=== PATIENT | female | born 1950 | race Caucasian/White ===

== ENCOUNTER 2017-12-24 09:30 | Outpatient (RCR) | payer MEDICARE, OTHER, SELFPAY ==
--- NOTE | 2017-11-27 14:51 | HP.PTEVAL ---
Patient's Visit Information MEAGAN GONZALEZ is a 67 year old F referred to Physical Therapy by Trisha Stacy with a diagnosis of LBP with radiculopathy,great bursitis trochanteric bursitis. Date of Evaluation: 11/27/17 Physical Therapist: Humberto Donovan PT, - Visit Plan Frequency: 2x /Week Duration: 4 Weeks Plan: POSTURAL EX'S,GRADE PROGRESSION DLS,MODLITIES LATERAL HIP BURSITUS,FLEXABLITY - Subjective Subjective: This 67 y/o female presenst to physical therapy with lumbar pain and lateral hip since last Jan. Patient has h/o lumbar HNP 2 years ago. Patient located lateral hip/SI,greater trochanter,below knee lateral calf described ache.. Patient symptoms laying on left side,walking.standing ,weakness in legs,sitting. But for extended standing to sit symptoms better. Symptoms better with rest. Patient has treatment lumbar decompression and manipulation by chiropractor. Patient x-rays done ather office.Patient has been doing some core exercies. Cough/sneezing/straining -. Bowel/bladder good.Pain affects sleeping .Pain affects quality of life and ADL'S/housework tasks. Dr recommmended predisone. SOCAIL: . VOCATION: Chiropractor - Pain Left Buttocks Pain Intensity (Out of 10): 5 Pain Intensity Range: 10 Left Hip Pain Intensity (Out of 10): 5 Pain Intensity Range: 10 Comment: 10/10 sleeping - Objective POSTURE: mild foward posture. SYMMTRIES: align. GAIT: ambulates with mild foward anatalgic gait. PALAPTION: tender left lateral tronhanter. NEURO: denies parathesia/tingling,reflexes 2/3 L3-4,L4-5/L5-S1. MMT: quads/hams 4/5,hip flexion/abd left 4-/5 pain,right 4/5. FLEXABLITY: hams min loss,priformis mod right. LUMBAR ROM: flexion min loss flexion,extension mod loss,side glides min loss - Special Tests L/S Slump test left side: Negative L/S Slump test right side: Negative L/S Left Straight Leg Raise: Negative L/S Right Straight Leg Raise: Negative Lumbar Standing: Flexion - Mechanical Response: No effect Lumbar Standing: Flexion - Symptoms During Testing: No effect Lumbar Standing: Flexion - Symptoms After Testing: No effect Lumbar Standing: Extension - Mechanical Response: No effect Lumbar Standing: Extension - Symptoms During Testing: Increases Lumbar Standing: Extension - Symptoms After Testing: No worse Lumbar Standing: Right Side Glides - Mechanical Response: No effect Lumbar Standing: Right Side [place] - Symptoms During Testing: No effect Lumbar Standing: Right Side [place] - Symptoms After Testing: No effect Lumbar Standing: Left Side [place] - Mechanical Response: No effect Lumbar Standing: Left Side [place] - Symptoms During Testing: Increases Lumbar Standing: Left Side [place] - Symptoms After Testing: Worse Lumbar Lying: Flexion - Mechanical Response: No effect Lumbar Lying: Flexion - Symptoms During Testing: Decreases Lumbar Lying: Flexion - Symptoms After Testing: No better Lumbar Lying: Extension - Mechanical Response: No effect Lumbar Lying: Extension - Symptoms During Testing: Increases Lumbar Lying: Extension - Symptoms After Testing: No worse - Goals Goal 1:: Patient to be Independant with HEP Goal Time Frame: 4-6 Weeks Goal 2:: Patient to be independant with posture for ADL'S Goal Time Frame: 4-6 Weeks Goal 3:: Decrease lumbar pain and radicular symptoms along with greater tronchanter symptoms by 50% or greater to improve function and ADL'S Goal Time Frame: 4-6 Weeks Goal 4:: Patient be able to improve lumbar to WFL for function of recovery Goal Time Frame: 4-6 Weeks Goal 5:: Patient be able to sleep on left side with min c/o pain Goal Time Frame: 4-6 Weeks Goal 6:: Patient be able to perfporm ADLS' and housework tasks with min limitations Goal Time Frame: 4-6 Weeks - Rehabilitation Potential Physical Therapy Diagnosis: This patient displays with possible deraangemnt below knee vs lateral stenosis along with left greater tronchanteric bursitis with pain with extension ,tender ,lateral hip . Patient also has h/o HNP lumbar spine, Thus patient to benifit from skilled PT. Rehabilitation Potential: Good - Anticipated Interventions Patient/Client Instruction: Educate patient on: Condition, Plan of Care For the Purpose of:: To decrease pain, To increase ROM, To improve muscle performance and motor function, To improve ability to perform ADL's, To improve ability of physical actions for home/community/work/leisure, To improve health of tissue, To decrease soft tissue restriction, To increase flexibility/ROM, To reduce risk of recurrence, To improve ability to perform tasks related to life management Therapeutic Exercise to Include: Strength training, Body mechanics, Postural training, Flexibilty training, Active ROM, Dynamic Lumbar Stabilization For the Purpose of:: To decrease pain, To increase ROM, To improve muscle performance and motor function, To improve ability to perform ADL's, To increase tolerance to activity/condition/position, To decrease level of supervision to perform tasks, To improve ability of physical actions for home/community/work/leisure, To improve health of tissue, To decrease soft tissue restriction, To increase flexibility/ROM, To reduce risk of recurrence, To improve ability to perform tasks related to life management TENS: Yes IF ES: Yes Cryotherapy (ice pack, ice massage): Yes Thermo therapy (hot pack): Yes Ultrasound (thermal/non thermal): Yes Comment: HIP/SI For the Purpose of:: To decrease pain, To decrease swelling/inflammation, To increase ROM, To improve nutrient delivery to tissue, To increase oxygenation perfusion, To improve health of tissue, To decrease soft tissue restriction, To improve ability to perform tasks related to life management Thank you for the opportunity to evaluate your patient. For Medicare and Medicare HMO plans, please review the plan of care and approve it. It will need to be FAXED BACK to us at [phone] for Medicare purposes. Please let me know if there are questions or concerns regarding this plan of care. Physician Signature: Date:
--- NOTE | 2018-02-12 12:23 | HP.PTDCSUM ---
HP - PT D/C Summary It has been my pleasure to treat MEAGAN GONZALEZ under orders from Trisha Stacy, for the diagnosis of LBP with radiculopathy,great bursitis trochanteric bursitis for a total of 9 visit(s). Discharge Date: 12/24/17 Please see the following information for a summary of their discharge status. - Subjective Subjective: Doing okay ,difficulty laying on left side - Pain Left Buttocks Pain Intensity (Out of 10): 0 Left Hip Pain Intensity (Out of 10): 1 Right Knee Pain Intensity (Out of 10): 0 LB Pain Intensity (Out of 10): 1 - Overall Improvement % Improvement: 55 - Objective Objective/Function: POSTURE: mild foward posture. NEURO: denies parathesia/tingling,reflexes intact. GAIT: ambulates with normal cadance,reciprocal pattern. MMT: quads/hams hip flexion 4/5 hip abd 4-/5,ankle 4/5. PALPATION: tender greater tronchanter mild left. LUMBAR ROM: flexion min lolss,extension mod loss ERP,side glides min loss - Goals Goal 1:: Patient to be Independant with HEP Goal Progress: Goal Met Goal 2:: Patient to be independant with posture for ADL'S Goal Progress: Goal Met Goal 3:: Decrease lumbar pain and radicular symptoms along with greater tronchanter symptoms by 50% or greater to improve function and ADL'S Goal Progress: Goal Met Goal 4:: Patient be able to improve lumbar to WFL for function of recovery Goal Progress: Progressing Goal 5:: Patient be able to sleep on left side with min c/o pain Goal Progress: Progressing Goal 6:: Patient be able to perfporm ADLS' and housework tasks with min limitations Goal Progress: Goal Met - Plan Plan: D/C TO HEP - D/C Information Discharge Comments: HEP If there are questions or concerns regarding this patient's physical therapy, please feel free to call me at [phone]. Thank you for the referral of this patient. Sincerely, Humberto Donovan, PT,
== END 2017-12-24 19:00 | disposition home or self-care (01) ==
LOC: PT 09:30
PROVIDERS: Family Provider Internal Medicine; PCP Internal Medicine; Visit Provider Internal Medicine
DX: M54.16 Radiculopathy, lumbar region (principal); M70.60 Trochanteric bursitis, unspecified hip
CPT/HCPCS: 97035; 97110; 97162

== ENCOUNTER 2018-09-22 00:17 | Inpatient (IN) | payer MEDICARE, OTHER, SELFPAY ==
[2018-09-22] VITALS (40 sets, daily range): BP systolic 92–187; BP diastolic 53–115; PULSE 55–155; RESP 12–24; TEMP 36.4–36.9; O2SAT 95–100; BMI 32.2; BMI 29.2; BMI 29.3
--- NOTE | 2018-09-22 00:20 | EKG12_ITS ---
Test Reason : CP Blood Pressure : / mmHG Vent. Rate : 156 BPM Atrial Rate : 187 BPM P-R Int : 000 ms QRS Dur : 072 ms QT Int : 292 ms P-R-T Axes : 000 -02 152 degrees QTc Int : 470 ms Atrial fibrillation with rapid ventricular response Nonspecific ST and T wave abnormality Abnormal ECG Confirmed by TIMBO DE LEON ([id number]), digital editor VICKY DE PAZ ([id number]) on 09/24/2018 11:05:40 AM Referred By: MARLENA Confirmed By:TIMBO DE LEON
--- NOTE | 2018-09-22 00:21 | CT_ITS ---
STUDY: CTA CHEST REASON FOR EXAM: Female, 68 years old. Chest pain and palpitations. RADIATION DOSAGE (If Supplied By Facility): CTDIvol = ( 10.66 ) mGy, DLP = ( 457.94 ) mGycm TECHNIQUE: The examination was performed with the intravenous administration of 75 ml of Isovue 370. Post-processing of the angiographic images was performed, with multiplanar reformation and 3D reconstruction. Individualized dose optimization techniques were used for this CT. COMPARISON: None. FINDINGS: patient monitor leads are present. Normal enhancement of the main pulmonary artery and right and left pulmonary arteries. Normal enhancement of the bilateral peripheral pulmonary arteries. There is no demonstrated pulmonary embolism. There is atherosclerotic calcification of the aortic arch with tortuosity. Maximum transverse dimension of the ascending thoracic aorta measures 3.1 cm. There is no demonstrated aortic dissection. Normal heart and pericardium. There are calcifications of the coronary arteries. Normal mediastinum. Normal hilar regions. Normal visualized trachea and bronchi. The lungs are well expanded. There is no obvious airspace consolidation. There appears to be subsegmental atelectasis at the right lung base. Normal pleura. Normal chest wall structures. There are degenerative changes of thoracic spine. Normal visualized upper abdomen. CT/CTA Chest W/WO Contrast IMPRESSION: No CTA demonstrated pulmonary embolism or arterial dissection. Electronically Signed: Afua Razo MD at 2:11 EDT , Service support ,
--- NOTE | 2018-09-22 00:23 | ED.VISSUMM ---
- ER Visit Summary Date of Service: 09/22/18 Chief Complaint: Chest pain, palpitations History of Present Illness: The patient is a 68 F presents to the emergency department sudden onset palpitations and chest pain. Patient states she is been having intermittent chest pain for the past week or so. She states she was just recently started on estrogen therapy. She states tonight, she was lying in bed, and began to have the sensation that her heart was racing. She also felt mildly short of breath. She denies any history of coronary vascular disease. She has a remote history of smoking. She denies any recent travel. She has no history of blood clot. She states she felt like her heart was racing just cannot catch her breath. She did not try anything for it. Physical Examination: Vital signs reviewed General: Well-nourished, well-developed Head: Normocephalic, atraumatic Eyes: Pupils equal and reactive, extraocular muscles intact Neck, supple, no lymphadenopathy Heart: irregular tachycardic rhythm rythm Respiratory: No distress, clear bilaterally Abdomen: Soft, nontender, nondistended, no peritoneal signs Back: Nontender Extremities: Nontender, no edema, no cords Skin: Normal color no rash Neuro: Alert and oriented, no focal or lateralizing deficits Test Results: [] Emergency Department Course and Treatment: Patient presents to the emergency department with chest tightness and palpitations. EKG was performed. Demonstrates atrial fibrillation with rapid ventricular response. There was no acute ischemia. IV was established. The patient does have exertional dyspnea. I did want to rule out pulmonary embolus. Patient was given 10 mg of diltiazem and started on diltiazem drip. Her heart rate had improved from the 160s to 140s. She was given another 10 mg and her heart rate in the 1 teens with improvement of symptoms. Screening labs are unremarkable. X-ray shows no focal infiltrate or enlarged cardiac silhouette. Patient underwent CTA. There is no evidence of acute pulmonary embolus. Her heart rate is improved but she is requiring continuous infusion of rate control. She is given a dose of Lovenox. The patient was discussed with the hospitalist and will be admitted at this time for rate control and further work-up of new onset A. fib. Treatment Plan: [] Disposition: Admission Impression: 1. New onset A. fib RVR This note was generated with Dragon dictation software. It may contain incorrect words, spelling, and punctuation that were not noted in review of the chart prior to signing ED Disposition - Plan for ED Patient: Referrals: Trisha Stacy DO [Primary Care Provider] -
--- NOTE | 2018-09-22 00:25 | RAD_ITS ---
STUDY: X-RAY CHEST REASON FOR EXAM: Female, 68 years old. Chest pain and palpitations. TECHNIQUE: Single AP portable view of the chest. COMPARISON: Prior comparison studies are not available for review at this time. FINDINGS: Cardiac monitoring leads are present. The lungs are underexpanded with crowding of bronchovascular markings. There is no demonstrated pleural abnormality. Normal size heart. Normal mediastinum and [place]. Normal visualized pulmonary arteries. There is atherosclerotic calcification of the aortic arch with tortuosity. Normal visualized thoracic spine. Normal visualized ribs, clavicles, and shoulders. There is no demonstrated abnormality of the visualized soft tissue structures of the upper abdomen. RAD/Chest 1 View (Portable) IMPRESSION: No radiographic evidence of acute cardiopulmonary disease. Electronically Signed: Afua Razo MD at 1:12 EDT , Service support ,
[2018-09-22] MEDS: dilTIAZem 25 MG/5 ML Vial 10 MG IV BOLUS ×2 (00:28→01:51)
[2018-09-22] MEDS: 0.9% Normal Saline 1,000 ML 150 ML IV (00:29)
[2018-09-22 00:49] LABS: Absolute Lymphocyte Count 3.05 X10^3/ul (0.83-4.51); Absolute Neutrophil Count 3.5 X10^3/uL (2.0-7.7); Basophil# 0.03 X10^3/uL; Basophil% 0.4 % (0-1); Eosinophil# 0.19 X10^3/uL; Eosinophils% 2.4 % (0-5); Hematocrit 44.3 % (37-47); Hemoglobin 14.6 g/dl (12.0-15.0); Lymphocyte # 3.05 X10^3/ul (4.0); Lymphocyte % 39.1 % (19-41); Mean Corpuscular Hgb 29.7 pg (27.0-32.0); Mean Platelet Vol. 9.5 fl (6.2-12.0); Monocyte% 12.8 % (0-10); Neutrophil # 3.51 X10^3/uL (2.7-7.7); Platelet Count 301 K/mm3 (150-450); RBC Distribution Width CV 13.5 % (11.6-14.6); RBC Distribution Width SD 43.9 fl (35.1-43.9); Red Blood Count 4.92 M/mm3 (4.2-5.4); White Blood Count 7.8 K/mm3 (4.4-11.0)
[2018-09-22 00:51] LABS: POSITIVE COUNT NO; POSITIVE DIFFERENTIAL NO; POSITIVE MORPHOLOGY NO
[2018-09-22 00:52] LABS: Prothrombin Time (Protime)PT. 12.6 SECONDS (11.7-14.9)
[2018-09-22 00:53] LABS: Partial Thromboplast Time 25.8 Seconds (24.1-36.2)
[2018-09-22 01:02] LABS: Anion Gap 6 (5-15); BUN 24 mg/dL (7-18); BUN/Creat Ratio 28.8 RATIO (10-20); Chloride 107 mmol/L (98-107); Creatinine, Serum 0.83 mg/dL (0.55-1.02); EST Glomerular Filtration Rate 73 mL/min (>60); Est Glom Filt Rate - Afr Amer 88 mL/min (>60); Estimated Creatinine Clearance 57.57 ml/min; Glucose 131 mg/dL (74-106); Potassium 3.9 mmol/L (3.5-5.1); Sodium Level 140 mmol/L (136-145)
[2018-09-22 02:09] LABS: Thyroid Stim Hormone (TSH) 1.68 uIU/mL (0.358-3.74)
[2018-09-22] MEDS: Mag Hydrox/Al Hydrox/Simeth 30 ML UDC PO (02:11)
[2018-09-22] MEDS: Enoxaparin 80 MG/0.8 ML Syringe SC (02:26)
--- NOTE | 2018-09-22 02:29 | ED.RN ---
PER DR BRAGG TITRATE CARDIZEM UP TO 15MG/HR
--- NOTE | 2018-09-22 02:36 | PCM.HP.STD ---
Problem List (1) Atrial fibrillation with RVR Status: Acute (2) HLD (hyperlipidemia) Status: Chronic Qualifiers: Hyperlipidemia type: unspecified Qualified Code(s): E78.5 - Hyperlipidemia, unspecified (3) Osteoarthritis Status: Chronic Qualifiers: Osteoarthritis location: unspecified site Osteoarthritis type: unspecified Qualified Code(s): M19.90 - Unspecified osteoarthritis, unspecified site (4) Obesity (BMI 30.0-34.9) Status: Chronic History of Present Illness Date of Admission: 09/22/18 Chief Complaint: Chest pain, palpitations The patient is a 68 y/o F w/ PMHx: HLD, OA, Obesity, History of intermittent midsternal chest pain, cramping sensation with associated dyspnea with evaluation per Dr. Ahuja prior with unremarkable stress testing, ECHO as well as cardiac catheterization remotely who now re-presents to the [facility] ED on 09/22/18 with history of 2 to 3-day history of again intermittent midsternal chest discomfort described as a cramping however this time she had sudden onset palpitations with severely notable sensation of racing heart awakening her from sleep early this morning with associated worsened dyspnea above baseline, rated 8/10 initially, now improved upon evaluation to 1/10. and do state that patient is a frequent snorer, worse as she is aged, unclear if apneic periods she has denied aggressive caffeine intake noting only 2 cups of coffee daily. Work-up in the ED included T 97.9, heart rate 153, BP initially 187/93, respiratory rate 18, 98% on 2 L nasal cannula, CBC unremarkable, coags unremarkable, BMP unremarkable aside glucose 131, trop < 0.015, BNP 49, TSH 1.68, EKG w/ atrial fibrillation with RVR, chest x-ray with no acute cardia pulmonary findings, CTPA with no acute findings. In the ED patient administered Mylanta, aspirin 324 mg p.o. x1, total of Cardizem IV bolus 10 mg x 2, Lovenox 80 mg subcu x1, multi-ingredient GI drug x1. Patient with ongoing atrial for ablation with RVR therefore transition following Cardizem bolus to Cardizem drip. Past Medical History Past Medical History (Chronic Problems): Chronic Problems HLD (hyperlipidemia) (Chronic) Osteoarthritis (Chronic) Obesity (BMI 30.0-34.9) (Chronic) Allergies No Known Allergies Allergy (Verified 10/07/15 05:08) Home Medications: Ambulatory Orders Medication Instructions Recorded NK 09/22/18 Surgical History: - - Bilateral bunionectomies. Psychiatric History: No pertinent psych hx [employer] History: No pertinent [employer] history Lives: Spouse/ Significant Other Smoking Status: Former smoker - Patient smoked transiently in college but none since. Tobacco Use: Non-smoker Alcohol: Occasional Drugs: None - *Family History Maternal History Items: - - Patient notes a maternal family history of atrial fibrillation. Paternal History Items: - - Patient notes a paternal family history of heart disease, ID. Review of Systems Constitutional: Reports: Malaise, Weakness, Fatigue. Denies: Chills, Fever, Weight Change HEENT: Denies: Head Aches, Sinus Congestion, Sinus Drainage Cardiovascular: Reports: Chest Pain, Chest Pressure, Chest Tightness, Palpitations. Denies: Heaviness, Light Headedness, Orthopnea, Syncope Respiratory: Reports: Shortness of Breath. Denies: Cough, Shortness of breath at rest, Sputum production Gastrointestinal: Denies: Abdominal Pain, Nausea, Vomiting Genitourinary: Denies: Dysuria Musculoskeletal: Denies: Joint Pain, Joint Tenderness Skin: Denies: Rash, Wounds Neurological: Denies: Numbness, Tingling, Focal weakness Psychiatric: Denies: Anxiety, Depression, Homicidal Ideations, Suicidal Ideations Hematologic/ Lymphatic: Denies: Easy Bruising, Easy Bleeding VTE Information - Inpt Only VTE Present on Admission: No VTE Mechan Device Prophylaxis: SCD's VTE Pharm Prophylaxis ordered?: Yes Patient Problems: Active and Suspected Problems Atrial fibrillation with RVR (Acute) Subjective: Seated upright in the ED bed, notes feeling improved since initial presentation, chest discomfort is markedly lessened, 1 out of 10 currently. States she is still feeling palpitations and a racing heart. Objective: Physical Examination: General: awake, alert, oriented x 3 and cooperative, seated upright in the ED bed in no apparent distress, notes feeling improved, chest discomfort 1 out of 10 currently, still ongoing racing heart. Skin: normal color, turgor, no icterus, cyanosis. HEENT: AT/NC, EOMI, PERRLA, mildly dry MM, no carotid bruits or JVD noted. Lungs: CTA bilaterally, moderate effort, mild decrease BL bases, no rales, ronchi or wheezing. Heart: Irregular irregular; no gallop, rub audible. Abdomen: soft, obese, NTTP, ND, normal BS, no HSM. Extremities: no cyanosis, clubbing, or edema. Neurological: patient awake, alert, oriented x 3; cognitive function intact; pupils equally reactive to light and accomodation; cranial nerves II-XII grossly normal, moving all 4 extremities, no focal deficits, strength severely global decrease secondary to acute presentation. Psychiatric: affect appears fatigued, no acute evidence of depressive or anxiety feelings. - Physical Exam Vital Signs Temp Pulse Resp BP Pulse Ox 98 F 129 H 16 108/63 99 09/22/18 02:05 09/22/18 02:28 09/22/18 02:28 09/22/18 02:28 09/22/18 02:28 Oxygen Flow Rate (L/min) 2 Oxygen Delivery Method Room Air Weight: 187 lb 9.814 oz Body Mass Index (BMI) 32.2 Laboratory Tests Past 24 Hrs 09/22/18 09/22/18 09/22/18 00:25 00:25 00:25 WBC 7.8 RBC 4.92 Hgb 14.6 Hct 44.3 MCV 90.0 MCH 29.7 MCHC 33.0 RDW 13.5 RDW Differential 43.9 Plt Count 301 MPV 9.5 Immature Gran % (Auto) 0.300 Neut % (Auto) 45.0 L Lymph % (Auto) 39.1 [place] % (Auto) 12.8 H Eos % (Auto) 2.4 Baso % (Auto) 0.4 Absolute Neuts (auto) 3.5 Absolute Lymphs (auto) 3.05 Total Counted Not Reportable PT 12.6 INR 1.0 APTT 25.8 Sodium 140 Potassium 3.9 Chloride 107 Carbon Dioxide 27.0 Anion Gap 6 BUN 24 H Creatinine 0.83 Estim Creat Clear Calc 57.57 Est GFR (MDRD) Af Amer 88 Est GFR (MDRD) Non-Af 73 BUN/Creatinine Ratio 28.8 H Glucose 131 H Calcium 9.0 Troponin I < 0.015 B-Natriuretic Peptide TSH 09/22/18 09/22/18 00:25 00:25 WBC RBC Hgb Hct MCV MCH MCHC RDW RDW Differential Plt Count MPV Immature Gran % (Auto) Neut % (Auto) Lymph % (Auto) [place] % (Auto) Eos % (Auto) Baso % (Auto) Absolute Neuts (auto) Absolute Lymphs (auto) Total Counted PT INR APTT Sodium Potassium Chloride Carbon Dioxide Anion Gap BUN Creatinine Estim Creat Clear Calc Est GFR (MDRD) Af Amer Est GFR (MDRD) Non-Af BUN/Creatinine Ratio Glucose Calcium Troponin I B-Natriuretic Peptide 49.0 TSH 1.68 Assessment/Plan All Active Problems Atrial fibrillation with RVR (Acute) The patient is a 68 y/o F w/ PMHx: HLD, OA, Obesity who now presents to the [facility] ED on 09/22/18 with history of 2 to 3-day history of again intermittent midsternal chest discomfort described as a cramping however this time she had sudden onset palpitations with severely notable sensation of racing heart awakening her from sleep early this morning with associated worsened dyspnea above baseline, rated 8/10 initially, now improved upon evaluation to 1/10. (1) New onset, Paroxsymal atrial fibrillation with Chest Pain: EKG in ED w/ atrial fibrillation w/ RVR. Patient administered Cardizem bolus x2 and transition to Cardizem drip in ED. Will admit to PCU, maintain on telemetry, obtain cardiac enzyme serial set, obtain magnesium level, obtain ECHO, obtain TSH level. Although chads scoring not elevated for this patient given current presentation and notable symptoms may require future cardioversion therefore initiate anticoagulation pending cardiology evaluation. Will continue on cardizem drip with plan for oral transition after 24 hours if appropriate. Cardiology consulted, pending. Given patient history of intermittent chest pain with prior normal cardiac cath, unremarkable echo but ongoing through the years may have intermittently had atrial fibrillation with RVR as the inciting factor. (2) Hyperlipidemia: Not on regimen, FLP in am. (3) Obesity: Weight loss and lifestyle changes encouraged. (4) Former remote smoker: Notes tobacco use in college, none since, encourage continued cessation. (5) Possible YUMIKO: Notes that she does frequently snore, unclear if occasional apneic periods, will maintain on trending pulse ox given acute presentation with PAF. (6) DVT prophylaxis: SCDs, therapeutic Lovenox. Code Visit Inpatient E&M: 22153 Init Hosp L3
[2018-09-22 02:57] LABS: Magnesium 2.3 mg/dL (1.6-2.6)
[2018-09-22 03:49] LABS: Absolute Lymphocyte Count 1.82 X10^3/ul (0.83-4.51); Absolute Neutrophil Count 4.8 X10^3/uL (2.0-7.7); Basophil# 0.03 X10^3/uL; Basophil% 0.4 % (0-1); Eosinophil# 0.13 X10^3/uL; Eosinophils% 1.7 % (0-5); Hematocrit 40.9 % (37-47); Hemoglobin 13.2 g/dl (12.0-15.0); Lymphocyte # 1.82 X10^3/ul (4.0); Lymphocyte % 24.3 % (19-41); Mean Corp Hgb Conc 32.3 g/gl (32-36); Mean Corpuscular Hgb 29.2 pg (27.0-32.0); Mean Corpuscular Volume 90.5 fL (81-99); Mean Platelet Vol. 9.4 fl (6.2-12.0); Monocyte# 0.74 X10^3/uL; Monocyte% 9.9 % (0-10); Neutrophil # 4.75 X10^3/uL (2.7-7.7); Neutrophil % 63.4 % (47-70); Platelet Count 295 K/mm3 (150-450); RBC Distribution Width CV 13.5 % (11.6-14.6); Red Blood Count 4.52 M/mm3 (4.2-5.4); White Blood Count 7.5 K/mm3 (4.4-11.0)
[2018-09-22 03:52] LABS: POSITIVE COUNT NO; POSITIVE DIFFERENTIAL NO; POSITIVE MORPHOLOGY NO
[2018-09-22 04:07] LABS: Anion Gap 6 (5-15); BUN 22 mg/dL (7-18); BUN/Creat Ratio 28.7 RATIO (10-20); Calcium,Total 8.5 mg/dL (8.5-10.1); Chloride 112 mmol/L (98-107); Cholesterol 190 mg/dL (200); Creatinine, Serum 0.77 mg/dL (0.55-1.02); EST Glomerular Filtration Rate 80 mL/min (>60); Est Glom Filt Rate - Afr Amer 97 mL/min (>60); Glucose 109 mg/dL (74-106); High Density Lipoprotein 56 mg/dL; Potassium 4.4 mmol/L (3.5-5.1); Sodium Level 144 mmol/L (136-145); Triglycerides 64 mg/dL; Very Low Density Lipoprotein 13 mg/dL (5-40)
[2018-09-22 04:44] LABS: Hemoglobin A1c 5.5 % (4.2-6.3)
--- NOTE | 2018-09-22 05:55 | ECHOD_ITS ---
Reason For Study: Afib, Aflutter Procedure This was a 2D Doppler, Color Flow transthoracic echocardiogram. Exam performed in department. Left Ventricle Normal size and thickness. The estimated ejection fraction is 65 %. Normal diastology for age. No regional wall motion abnormalities noted. Right Ventricle Normal size and thickness. Normal systolic function. Atria Normal left atrium. Normal right atrium. Normal atrial septum. Mitral Valve The mitral valve is structurally normal. No prolapse or stenosis seen. Trivial mitral valve insufficiency. Tricuspid Valve Normal tricuspid valve. Trivial tricuspid valve insufficiency. Right ventricular systolic pressure estimated to be 23 mmHg. Aortic Valve Normal aortic valve. Trisinus/trileaflet aortic valve. Pulmonic Valve Normal pulmonic valve. Great Vessels Normal aortic root. Normal arch. Normal inferior vena cava. Inferior vena cava collapse with sniff. Pericardium/Pleural No pericardial effusion. MMode/2D Measurements & Calculations LVIDd: 4.5 cm IVSd: 1.1 cm Ao root diam: 2.8 cm LVIDs: 2.6 cm LVPWd: 0.85 cm RVDd: 3.9 cm FS: 42.6 % LAV(MOD-bp): 50.5 ml LVAd ap4: 22.7 cm2 SV(MOD-sp4): 35.7 ml LAV(MOD-bp) Indexed: 27.0 ml/m2 EDV(MOD-sp4): 57.3 ml LAV(MOD-sp2): 66.9 ml EDV(sp4-el): 59.9 ml LAV(MOD-sp4): 38.4 ml LVAs ap4: 12.8 cm2 ESV(MOD-sp4): 21.6 ml ESV(sp4-el): 22.0 ml EF(MOD-sp4): 62.3 % EF(sp4-el): 63.3 % SV(sp4-el): 37.9 ml LA A4 area: 15.5 cm2 LA dimension(2D): 4.4 cm RA A4 area: 13.2 cm2 Doppler Measurements & Calculations MV E max manolo: 80.4 cm/sec Lat Peak E' Manolo: 12.5 cm/sec Med Peak E' Manolo: 9.8 cm/sec MV A max manolo: 55.1 cm/sec E/E' lat: 6.4 E/E' med: 8.2 MV E/A: 1.5 Ao V2 max: 119.9 cm/sec LV V1 max: 94.4 cm/sec PA V2 max: 74.0 cm/sec Ao max P.8 mmHg LV V1 max P.6 mmHg Ao V2 mean: 87.5 cm/sec Ao mean P.3 mmHg Ao V2 VTI: 28.2 cm TR max manolo: 214.0 cm/sec TR max P.3 mmHg Interpretation Summary The estimated ejection fraction is 65 %. Normal diastology for age. Trivial mitral valve insufficiency. Trivial tricuspid valve insufficiency. Right ventricular systolic pressure estimated to be 23 mmHg. Compared to echo report dated 06/30/2011, no appreciable changes noted. Pt converted from atrial fibrillation to NSR on PCU. Ordering Physician: Amy Fierro Referring Physician: Trisha Stacy Performed By: Maira Potts, JAVI, RVT
[2018-09-22] MEDS: 0.9% Normal Saline 1,000 ML 100 ML IV ×2 (06:30→17:30)
--- NOTE | 2018-09-22 07:05 | STEWCON_ITS ---
Reason For Study: Atrial Fibrillation Stress Results Protocol: Chet Protocol Maximum Predicted HR: 154 bpm Target HR: 131 bpm % Maximum Predicted HR: 84 % DurationHeart Rate Stage (mm:ss) (bpm) BP Comment Baseline 58 104/62No Chest Pain; Diluted Definity 2 ML Given Chet Protocol Stage I 3:00 112 112/60No Chest Pain; Mild to Moderate Dyspnea Chet Protocol Stage II 1:15 129 / No Chest Pain; Severe Dyspnea Recovery 78 124/72 Stress Duration: 4:15 mm:ss Maximum Stress HR: 129 bpm METS: 7 Baseline Echocardiogram Findings The estimated ejection fraction is 65 %. Stress Echo Wall motion Data Resting WM Intermediate WM Stress WM Resting Wall Motion Wall Motion Stress No regional wall motion No regional wall motion abnormalities noted. abnormalities noted. EKG Data The baseline ECG displays normal sinus rhythm. The patient exercised according to the regular Chet protocol for a total duration of 4:15. The maximum heart rate attained was 139 beats per minute. This was 90% of maximum predicted heart rate. The patient exercised into stage 2 of the Chet protocol. During stress, there were no ST or T wave changes noted to suggest ischemia. No clinical angina was noted. Interpretation Summary The estimated ejection fraction is 65 %. Normal, adequate, treadmill echocardiogram. Negative for ischemia by EKG and echocardiographic criteria. No anginal symptoms noted. No arrhythmias noted. Below average exercise capacity for age.Test terminated due to severe shortness of breath which may be an anginal equivalent. Final LVEF is 75%. Decreased sensitivity due to poor echo windows requiring Definity agent. Patient was in sinus rhythm prior to during, and at the end of the procedure. No complications. The study was technically difficult. Contrast injection was performed. Ordering Physician: Abiel Treadwell Referring Physician: Trisha Stacy Performed By: Maira Potts, JAVI, RVT
[2018-09-22] MEDS: Aspirin 81 MG TAB.CHEW PO (07:27)
[2018-09-22] MEDS: dilTIAZem CD 240 MG Capsule PO (07:27)
--- NOTE | 2018-09-22 08:30 | EKG12_ITS ---
Test Reason : MORNING EKG Blood Pressure : / mmHG Vent. Rate : 058 BPM Atrial Rate : 058 BPM P-R Int : 152 ms QRS Dur : 076 ms QT Int : 444 ms P-R-T Axes : 062 002 021 degrees QTc Int : 435 ms Sinus bradycardia Otherwise normal ECG When compared with ECG of 22-SEP-2018 08:37, MANUAL COMPARISON REQUIRED, DATA IS UNCONFIRMED Confirmed by BRAXTON ORTIZ ([id number]), newspaper editor managing VICKY DE PAZ ([id number]) on 09/27/2018 2:23:55 PM Referred By: REGAN Confirmed By:AVERY ORTIZ
[2018-09-22] MEDS: 0.9% NaCl Peripheral Flush Adult/Peds IV (09:20)
[2018-09-22] MEDS: dilTIAZem 25 MG/5 ML Vial 5 MG IV BOLUS (09:21)
--- NOTE | 2018-09-22 09:34 | PCM.CONS.C ---
<Sim Potts - Last Filed: 09/22/18 14:22> Problem List (1) Atrial fibrillation with RVR Status: Acute (2) HLD (hyperlipidemia) Status: Chronic Qualifiers: Hyperlipidemia type: unspecified Qualified Code(s): E78.5 - Hyperlipidemia, unspecified (3) Obesity (BMI 30.0-34.9) Status: Chronic Reason for Consult Date of Consultation: 09/22/18 Reason for Consultation: New onset atrial fibrillation History of Present Illness: The patient is a 68 year old F who presented to the ER on 09/21/2018 after noting palpitations in the evening that was associated with SOB and intermittent chest pain. She has a previous history of intermittent chest pain with evaluation in 2011 which included an echocardiogram and heart catheterization, hyperlipidemia, osteoarthritis, and obesity. She took her blood pressure yesterday and noted her heart rate to be elevated. In the ER her ECG atrial fibrillation with RVR without acute ischemic changes. She underwent a CTA to rule out pulmonary embolism. This was negative for PE. She was given Cardizem bolus and admitted to PCU for further evaluation. Cardiology was consulted for further treatment in regards to atrial fibrillation. Past Medical History Allergies/Adverse Reactions: Allergies No Known Allergies Allergy (Verified 10/07/15 05:08) Home Medications: Ambulatory Orders Medication Instructions Recorded NK 09/22/18 Past Medical History (Chronic Problems): Chronic Problems HLD (hyperlipidemia) (Chronic) Osteoarthritis (Chronic) Obesity (BMI 30.0-34.9) (Chronic) Surgical History: - - Bilateral bunionectomies. 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 Paternal Family History: Family History (Last Updated 09/22/18 @ 09:40 by SONIA Jensen) Mother Atrial fibrillation History Items: - - Patient notes a paternal family history of heart disease, [place]. Lives: Spouse/ Significant Other Smoking Status: Former smoker Tobacco Use: Non-smoker Alcohol: Occasional Drugs: None Review of Systems - Review of Systems Cardiovascular: Denies: Chest Discomfort, Chest Tightness, Chest Heaviness, Shortness of Breath, Peripheral Edema, Dizziness Respiratory: Denies: Cough Neurological: Denies: Dizziness, Weakness Objective: Vital Signs Temp Pulse Resp BP Pulse Ox 98.4 F 110 H 19 H 115/70 98 09/22/18 04:33 09/22/18 07:33 09/22/18 07:33 09/22/18 07:33 09/22/18 07:33 Oxygen Flow Rate (L/min) 2 Oxygen Delivery Method Room Air Weight: 175 lb 14.862 oz Body Mass Index (BMI) 29.2 Intake and Output for Last 24 Hours 09/20/18 09/21/18 09/22/18 23:59 23:59 23:59 Intake Total 561 / 561 Output Total 350 / 350 Balance 211 / 211 General: Healthy Appearing, Awake, Alert, Oriented x 3 HEENT: Atraumatic Oral: Moist Mucosa Neck: No JVD Lungs: Clear to auscultation Cardiovascular: Irregular Rhythm, No Murmurs, No Rubs, No Gallops Abdomen: Soft Extremities: No edema, Normal Capillary Refill Skin: No Rashes Neurological: No Focal Motor or Sensory Deficit Psych/Mental Status: Appropriate, Normal Affect 09/22/18 00:25: WBC 7.8, RBC 4.92, Hgb 14.6, Hct 44.3, MCV 90.0, MCH 29.7, MCHC 33.0, RDW 13.5, RDW Differential 43.9, Plt Count 301, MPV 9.5, Immature Gran % (Auto) 0.300, Neut % (Auto) 45.0 L, Lymph % (Auto) 39.1, Bradley % (Auto) 12.8 H, Eos % (Auto) 2.4, Baso % (Auto) 0.4, Absolute Neuts (auto) 3.5, Total Counted Not Reportable 09/22/18 00:25: Sodium 140, Potassium 3.9, Chloride 107, Carbon Dioxide 27.0, Anion Gap 6, BUN 24 H, Creatinine 0.83, Est GFR (MDRD) Af Amer 88, Est GFR (MDRD) Non-Af 73, BUN/Creatinine Ratio 28.8 H, Glucose 131 H, Calcium 9.0, Troponin I < 0.015 09/22/18 00:25: PT 12.6, INR 1.0, APTT 25.8 09/22/18 00:25: B-Natriuretic Peptide 49.0 09/22/18 00:25: Magnesium 2.3 09/22/18 03:40: WBC 7.5, RBC 4.52, Hgb 13.2, Hct 40.9, MCV 90.5, MCH 29.2, MCHC 32.3, RDW 13.5, RDW Differential 44.0 H, Plt Count 295, MPV 9.4, Immature Gran % (Auto) 0.300, Neut % (Auto) 63.4, Lymph % (Auto) 24.3, Bradley % (Auto) 9.9, Eos % (Auto) 1.7, Baso % (Auto) 0.4, Absolute Neuts (auto) 4.8, Total Counted Not Reportable 09/22/18 03:40: Hemoglobin A1c 5.5 09/22/18 03:40: Sodium 144, Potassium 4.4, Chloride 112 H, Carbon Dioxide 26.0, Anion Gap 6, BUN 22 H, Creatinine 0.77, Est GFR (MDRD) Af Amer 97, Est GFR (MDRD) Non-Af 80, BUN/Creatinine Ratio 28.7 H, Glucose 109 H, Calcium 8.5, Triglycerides 64, Cholesterol 190, LDL Cholesterol 121, VLDL Cholesterol 13, HDL Cholesterol 56 09/22/18 03:40: Troponin I 0.045 09/22/18 06:12: Troponin I 0.043 Rhythm: EKG: ECHO: Interpretation Summary The estimated ejection fraction is 65 %. Normal diastology for age. Trivial mitral valve insufficiency. Trivial tricuspid valve insufficiency. Right ventricular systolic pressure estimated to be 23 mmHg. Compared to echo report dated 06/30/2011, no appreciable changes noted. Pt converted from atrial fibrillation to NSR on PCU. Stress Test: Interpretation Summary The estimated ejection fraction is 65 %. Normal, adequate, treadmill echocardiogram. Negative for ischemia by EKG and echocardiographic criteria. No anginal symptoms noted. No arrhythmias noted. Below average exercise capacity for age.Test terminated due to severe shortness of breath which may be an anginal equivalent. Final LVEF is 75%. Decreased sensitivity due to poor echo windows requiring Definity agent. Patient was in sinus rhythm prior to during, and at the end of the procedure. No complications. The study was technically difficult. Contrast injection was performed. Cardiac Cath: PCI: CT Surgery: Holter monitor: EPS: PPM: CXR: Chest CT Scan: Assessment/Plan 1. Paroxysmal Atrial fibrillation - Patient was on Cardizem PO and converted to Sinus Rhythm. - Echocardiogram Her previous echo in 2011 showed an EF of 55%, structurally normal valves, and normal atrial size. Her Echocardiogram from today showed and an ejection fraction of 65%, normal atrial size, and RVSP of 23 mmHg. -Oral anticoagulation will be considered after heart catheterization given [id number] score is 2 (Age and Female). This may include Coumadin, Xarelto, or Eliquis. -She will continue with oral Cardizem for rate control. 2. Intermittent chest pain Her heart catheterization on 10/29/2011 showed minimal atherosclerotic CAD, normal LV size and contractility, and EF of 65%. Patient's troponin has been negative. He stress echocardiogram from today was negative for ischemia. Despite her normal stress echocardiogram she will undergo a heart catheterization due to ongoing intermittent chest pain. She will be loaded with Plavix 300 mg today. She will be n.p.o. at midnight. Based on her heart catheterization further recommendation will be made in regards to oral anticoagulation due to paroxysmal atrial fibrillation. <Abiel Treadwell - Last Filed: 09/22/18 14:46> Problem List (1) Atrial fibrillation with RVR Status: Acute (2) HLD (hyperlipidemia) Status: Chronic Qualifiers: Hyperlipidemia type: unspecified Qualified Code(s): E78.5 - Hyperlipidemia, unspecified Reason for Consult History of Present Illness: Patient seen and examined and agree with above. Additional history includes that the patient underwent a catheterization with Dr. Ahuja in 2011 which showed minimal non-objective coronary artery disease. She has not had a repeat catheterization since that time. She does have a strong positive family history of coronary disease in her mother who had 5 stents despite having a normal cholesterol profile per the patient. Patient also has a family history of atrial fibrillation and her mother. Over the last several months, the patient has had intermittent episodes of substernal chest pain, dyspnea on exertion and overall fatigue. She still continues to work as a chiropractor, stating that sometimes she gets profound short of breath after walking upstairs. Patient used to smoke for about 5 years in college but quit many years ago. She has never been told she had emphysema, diabetes, denies palpitations during these events over the last several months. Her atrial fibrillation has normalized with medical management. She underwent a 2D echo with Doppler which showed normal LV function and a treadmill echocardiogram with below average exercise performance for age, significant dyspnea on exertion at the peak of exercise which may be an anginal equivalent, but no overt wall motion normalities. [] Past Medical History - *Family History Maternal Family History: Family History (Last Updated 09/22/18 @ 09:40 by SONIA Jensen) Mother Atrial fibrillation Paternal Family History: Family History (Last Updated 09/22/18 @ 09:40 by SONIA Jensen) Mother Atrial fibrillation Review of Systems - Review of Systems General: Denies: Fever, Night Sweats, Fatigue Cardiovascular: Reports: Chest Discomfort with Exertion, Shortness of Breath with Exertion. Denies: Shortness of Breath, Orthopnea, PND, Peripheral Edema, Palpitations, Lightheadedness, Dizziness, Near Syncope, Syncope Respiratory: Denies: Cough, Sputum Production, Hemoptysis Gastrointestinal: Denies: Hematemesis, Hematochezia, Melena Genitourinary: Denies: Dysuria, Hematuria Skin: Denies: Rash Objective: Vital Signs Temp Pulse Resp BP Pulse Ox 97.9 F 64 13 109/59 L 98 09/22/18 10:00 09/22/18 11:34 09/22/18 10:00 09/22/18 10:00 09/22/18 10:00 Oxygen Flow Rate (L/min) 2 Oxygen Delivery Method Room Air Weight: 175 lb 14.862 oz Body Mass Index (BMI) 29.2 Intake and Output for Last 24 Hours 09/20/18 09/21/18 09/22/18 23:59 23:59 23:59 Intake Total 956.7 / 956.7 Output Total 750 / 750 Balance 206.7 / 206.7 09/22/18 00:25: WBC 7.8, RBC 4.92, Hgb 14.6, Hct 44.3, MCV 90.0, MCH 29.7, MCHC 33.0, RDW 13.5, RDW Differential 43.9, Plt Count 301, MPV 9.5, Immature Gran % (Auto) 0.300, Neut % (Auto) 45.0 L, Lymph % (Auto) 39.1, Bradley % (Auto) 12.8 H, Eos % (Auto) 2.4, Baso % (Auto) 0.4, Absolute Neuts (auto) 3.5, Total Counted Not Reportable 09/22/18 00:25: Sodium 140, Potassium 3.9, Chloride 107, Carbon Dioxide 27.0, Anion Gap 6, BUN 24 H, Creatinine 0.83, Est GFR (MDRD) Af Amer 88, Est GFR (MDRD) Non-Af 73, BUN/Creatinine Ratio 28.8 H, Glucose 131 H, Calcium 9.0, Troponin I < 0.015 09/22/18 00:25: PT 12.6, INR 1.0, APTT 25.8 09/22/18 00:25: B-Natriuretic Peptide 49.0 09/22/18 00:25: Magnesium 2.3 09/22/18 03:40: WBC 7.5, RBC 4.52, Hgb 13.2, Hct 40.9, MCV 90.5, MCH 29.2, MCHC 32.3, RDW 13.5, RDW Differential 44.0 H, Plt Count 295, MPV 9.4, Immature Gran % (Auto) 0.300, Neut % (Auto) 63.4, Lymph % (Auto) 24.3, Bradley % (Auto) 9.9, Eos % (Auto) 1.7, Baso % (Auto) 0.4, Absolute Neuts (auto) 4.8, Total Counted Not Reportable 09/22/18 03:40: Hemoglobin A1c 5.5 09/22/18 03:40: Sodium 144, Potassium 4.4, Chloride 112 H, Carbon Dioxide 26.0, Anion Gap 6, BUN 22 H, Creatinine 0.77, Est GFR (MDRD) Af Amer 97, Est GFR (MDRD) Non-Af 80, BUN/Creatinine Ratio 28.7 H, Glucose 109 H, Calcium 8.5, Triglycerides 64, Cholesterol 190, LDL Cholesterol 121, VLDL Cholesterol 13, HDL Cholesterol 56 09/22/18 03:40: Troponin I 0.045 09/22/18 06:12: Troponin I 0.043 Rhythm: EKG: ECHO: Stress Test: Cardiac Cath: PCI: CT Surgery: Holter monitor: EPS: PPM: CXR: Chest CT Scan: Assessment/Plan Interventional cardiology attending addendum: 1. Paroxysmal atrial fibrillation: Patient is spontaneously converted to normal sinus rhythm with the addition of Cardizem drip, and antihypertensive medications. She had minimal troponin release, and underwent a treadmill echocardiogram which showed no overt ischemic areas however she had profound dyspnea on exertion at peak exercise which may be an anginal equivalent. In tandem with that, the patient has had several episodes on a monthly basis of dyspnea on exertion, mild chest pain, and worsening fatigue. She also has a strong positive family history of coronary disease in her mother who has 5 stents in her mid 50s. Given the patient's chads?vascular 2 score she may require long-term anticoagulation therapy. Given her symptoms over the last year and the fact that her last catheterization showed minimal nonobstructive disease over 12 years ago, I recommended that she undergo a left heart catheterization tomorrow morning. She will continue on baby aspirin, be loaded with Plavix 300 mg x 1 now followed by 75 mg p.o. daily. If her catheterization shows no overt disease we will discontinue her Plavix and transition her onto anticoagulation therapy with either Xarelto or Eliquis. Given the paroxysmal nature of her arrhythmias, I would recommend long-term any coagulation therapy. In the meantime she will continue on Cardizem CD 240 mg p.o. daily for rate control. 2. Hyperlipidemia: Depending upon the patient's coronary catheterization we will determine whether she requires aggressive LDL reduction. Her LDL was 121. If she has any evidence of coronary disease and especially if she requires stenting I would recommend aggressive LDL reduction with statin based medications to an LDL less than 70. 3. Thank you very much for the opportunity to participate in the cardiac care of your patient. Consultation time took place between 1 PM and 1:30 PM. This note was generated using a voice recognition system and there may be incorrect words, spelling or punctuation that were not noted when reviewing the office note prior to saving. Code Visit Inpatient E&M: 79146 Init Hosp L2
--- NOTE | 2018-09-22 09:39 | CON.PCM_ITS ---
<Sim Potts - Last Filed: 09/22/18 14:22> Problem List (1) Atrial fibrillation with RVR Status: Acute (2) HLD (hyperlipidemia) Status: Chronic Qualifiers: Hyperlipidemia type: unspecified Qualified Code(s): E78.5 - Hyperlipidemia, unspecified (3) Obesity (BMI 30.0-34.9) Status: Chronic Reason for Consult Date of Consultation: 09/22/18 Reason for Consultation: New onset atrial fibrillation History of Present Illness: The patient is a 68 year old F who presented to the ER on 09/21/2018 after noting palpitations in the evening that was associated with SOB and intermittent chest pain. She has a previous history of intermittent chest pain with evaluation in 2011 which included an echocardiogram and heart catheterization, hyperlipidemia, osteoarthritis, and obesity. She took her blood pressure yesterday and noted her heart rate to be elevated. In the ER her ECG atrial fibrillation with RVR without acute ischemic changes. She underwent a CTA to rule out pulmonary embolism. This was negative for PE. She was given Cardizem bolus and admitted to PCU for further evaluation. Cardiology was consulted for further treatment in regards to atrial fibrillation. Past Medical History Allergies/Adverse Reactions: Allergies No Known Allergies Allergy (Verified 10/07/15 05:08) Home Medications: Ambulatory Orders Medication Instructions Recorded NK 09/22/18 Past Medical History (Chronic Problems): Chronic Problems HLD (hyperlipidemia) (Chronic) Osteoarthritis (Chronic) Obesity (BMI 30.0-34.9) (Chronic) Surgical History: - - Bilateral bunionectomies. Psychiatric History: No pertinent psych hx SWATCH CHECKER History: No pertinent SWATCH CHECKER history - *Family History Maternal Family History: Family History (Last Updated 09/22/18 @ 09:40 by SONIA Jensen) Mother Atrial fibrillation History Items: - - Patient notes a maternal family history of atrial fibrillation. Paternal Family History: Family History (Last Updated 09/22/18 @ 09:40 by SONIA Jensen) Mother Atrial fibrillation History Items: - - Patient notes a paternal family history of heart disease, [place]. Lives: Spouse/ Significant Other Smoking Status: Former smoker Tobacco Use: Non-smoker Alcohol: Occasional Drugs: None Review of Systems - Review of Systems Cardiovascular: Denies: Chest Discomfort, Chest Tightness, Chest Heaviness, Shortness of Breath, Peripheral Edema, Dizziness Respiratory: Denies: Cough Neurological: Denies: Dizziness, Weakness Objective: Vital Signs Temp Pulse Resp BP Pulse Ox 98.4 F 110 H 19 H 115/70 98 09/22/18 04:33 09/22/18 07:33 09/22/18 07:33 09/22/18 07:33 09/22/18 07:33 Oxygen Flow Rate (L/min) 2 Oxygen Delivery Method Room Air Weight: 175 lb 14.862 oz Body Mass Index (BMI) 29.2 Intake and Output for Last 24 Hours 09/20/18 09/21/18 09/22/18 23:59 23:59 23:59 Intake Total 561 / 561 Output Total 350 / 350 Balance 211 / 211 General: Healthy Appearing, Awake, Alert, Oriented x 3 HEENT: Atraumatic Oral: Moist Mucosa Neck: No JVD Lungs: Clear to auscultation Cardiovascular: Irregular Rhythm, No Murmurs, No Rubs, No Gallops Abdomen: Soft Extremities: No edema, Normal Capillary Refill Skin: No Rashes Neurological: No Focal Motor or Sensory Deficit Psych/Mental Status: Appropriate, Normal Affect 09/22/18 00:25: WBC 7.8, RBC 4.92, Hgb 14.6, Hct 44.3, MCV 90.0, MCH 29.7, MCHC 33.0, RDW 13.5, RDW Differential 43.9, Plt Count 301, MPV 9.5, Immature Gran % (Auto) 0.300, Neut % (Auto) 45.0 L, Lymph % (Auto) 39.1, Loíza % (Auto) 12.8 H, Eos % (Auto) 2.4, Baso % (Auto) 0.4, Absolute Neuts (auto) 3.5, Total Counted Not Reportable 09/22/18 00:25: Sodium 140, Potassium 3.9, Chloride 107, Carbon Dioxide 27.0, Anion Gap 6, BUN 24 H, Creatinine 0.83, Est GFR (MDRD) Af Amer 88, Est GFR (MDRD) Non-Af 73, BUN/Creatinine Ratio 28.8 H, Glucose 131 H, Calcium 9.0, Troponin I < 0.015 09/22/18 00:25: PT 12.6, INR 1.0, APTT 25.8 09/22/18 00:25: B-Natriuretic Peptide 49.0 09/22/18 00:25: Magnesium 2.3 09/22/18 03:40: WBC 7.5, RBC 4.52, Hgb 13.2, Hct 40.9, MCV 90.5, MCH 29.2, MCHC 32.3, RDW 13.5, RDW Differential 44.0 H, Plt Count 295, MPV 9.4, Immature Gran % (Auto) 0.300, Neut % (Auto) 63.4, Lymph % (Auto) 24.3, Loíza % (Auto) 9.9, Eos % (Auto) 1.7, Baso % (Auto) 0.4, Absolute Neuts (auto) 4.8, Total Counted Not Reportable 09/22/18 03:40: Hemoglobin A1c 5.5 09/22/18 03:40: Sodium 144, Potassium 4.4, Chloride 112 H, Carbon Dioxide 26.0, Anion Gap 6, BUN 22 H, Creatinine 0.77, Est GFR (MDRD) Af Amer 97, Est GFR (MDRD) Non-Af 80, BUN/Creatinine Ratio 28.7 H, Glucose 109 H, Calcium 8.5, Triglycerides 64, Cholesterol 190, LDL Cholesterol 121, VLDL Cholesterol 13, HDL Cholesterol 56 09/22/18 03:40: Troponin I 0.045 09/22/18 06:12: Troponin I 0.043 Rhythm: EKG: ECHO: Interpretation Summary The estimated ejection fraction is 65 %. Normal diastology for age. Trivial mitral valve insufficiency. Trivial tricuspid valve insufficiency. Right ventricular systolic pressure estimated to be 23 mmHg. Compared to echo report dated 06/30/2011, no appreciable changes noted. Pt converted from atrial fibrillation to NSR on PCU. Stress Test: Interpretation Summary The estimated ejection fraction is 65 %. Normal, adequate, treadmill echocardiogram. Negative for ischemia by EKG and echocardiographic criteria. No anginal symptoms noted. No arrhythmias noted. Below average exercise capacity for age.Test terminated due to severe shortness of breath which may be an anginal equivalent. Final LVEF is 75%. Decreased sensitivity due to poor echo windows requiring Definity agent. Patient was in sinus rhythm prior to during, and at the end of the procedure. No complications. The study was technically difficult. Contrast injection was performed. Cardiac Cath: PCI: CT Surgery: Holter monitor: EPS: PPM: CXR: Chest CT Scan: Assessment/Plan 1. Paroxysmal Atrial fibrillation - Patient was on Cardizem PO and converted to Sinus Rhythm. - Echocardiogram * Her previous echo in 2011 showed an EF of 55%, structurally normal valves, and normal atrial size. * Her Echocardiogram from today showed and an ejection fraction of 65%, normal atrial size, and RVSP of 23 mmHg. -Oral anticoagulation will be considered after heart catheterization given [id number] score is 2 (Age and Female). This may include Coumadin, Xarelto, or Eliquis. -She will continue with oral Cardizem for rate control. 2. Intermittent chest pain * Her heart catheterization on 10/29/2011 showed minimal atherosclerotic CAD, normal LV size and contractility, and EF of 65%. * Patient's troponin has been negative. He stress echocardiogram from today was negative for ischemia. * Despite her normal stress echocardiogram she will undergo a heart catheterization due to ongoing intermittent chest pain. * She will be loaded with Plavix 300 mg today. * She will be n.p.o. at midnight. * Based on her heart catheterization further recommendation will be made in regards to oral anticoagulation due to paroxysmal atrial fibrillation. <Abiel Treadwell - Last Filed: 09/22/18 14:46> Problem List (1) Atrial fibrillation with RVR Status: Acute (2) HLD (hyperlipidemia) Status: Chronic Qualifiers: Hyperlipidemia type: unspecified Qualified Code(s): E78.5 - Hyperlipidemia, unspecified Reason for Consult History of Present Illness: Patient seen and examined and agree with above. Additional history includes that the patient underwent a catheterization with Dr. Ahuja in 2011 which showed minimal non-objective coronary artery disease. She has not had a repeat catheterization since that time. She does have a strong positive family history of coronary disease in her mother who had 5 stents despite having a normal cholesterol profile per the patient. Patient also has a family history of atrial fibrillation and her mother. Over the last several months, the patient has had intermittent episodes of substernal chest pain, dyspnea on exertion and overall fatigue. She still continues to work as a chiropractor, stating that sometimes she gets profound short of breath after walking upstairs. Patient used to smoke for about 5 years in college but quit many years ago. She has never been told she had emphysema, diabetes, denies palpitations during these events over the last several months. Her atrial fibrillation has normalized with medical management. She underwent a 2D echo with Doppler which showed normal LV function and a treadmill echocardiogram with below average exercise performance for age, significant dyspnea on exertion at the peak of exercise which may be an anginal equivalent, but no overt wall motion normalities. [] Past Medical History - *Family History Maternal Family History: Family History (Last Updated 09/22/18 @ 09:40 by SONIA Jensen) Mother Atrial fibrillation Paternal Family History: Family History (Last Updated 09/22/18 @ 09:40 by SONIA Jensen) Mother Atrial fibrillation Review of Systems - Review of Systems General: Denies: Fever, Night Sweats, Fatigue Cardiovascular: Reports: Chest Discomfort with Exertion, Shortness of Breath with Exertion. Denies: Shortness of Breath, Orthopnea, PND, Peripheral Edema, Palpitations, Lightheadedness, Dizziness, Near Syncope, Syncope Respiratory: Denies: Cough, Sputum Production, Hemoptysis Gastrointestinal: Denies: Hematemesis, Hematochezia, Melena Genitourinary: Denies: Dysuria, Hematuria Skin: Denies: Rash Objective: Vital Signs Temp Pulse Resp BP Pulse Ox 97.9 F 64 13 109/59 L 98 09/22/18 10:00 09/22/18 11:34 09/22/18 10:00 09/22/18 10:00 09/22/18 10:00 Oxygen Flow Rate (L/min) 2 Oxygen Delivery Method Room Air Weight: 175 lb 14.862 oz Body Mass Index (BMI) 29.2 Intake and Output for Last 24 Hours 09/20/18 09/21/18 09/22/18 23:59 23:59 23:59 Intake Total 956.7 / 956.7 Output Total 750 / 750 Balance 206.7 / 206.7 09/22/18 00:25: WBC 7.8, RBC 4.92, Hgb 14.6, Hct 44.3, MCV 90.0, MCH 29.7, MCHC 33.0, RDW 13.5, RDW Differential 43.9, Plt Count 301, MPV 9.5, Immature Gran % (Auto) 0.300, Neut % (Auto) 45.0 L, Lymph % (Auto) 39.1, Loíza % (Auto) 12.8 H, Eos % (Auto) 2.4, Baso % (Auto) 0.4, Absolute Neuts (auto) 3.5, Total Counted Not Reportable 09/22/18 00:25: Sodium 140, Potassium 3.9, Chloride 107, Carbon Dioxide 27.0, Anion Gap 6, BUN 24 H, Creatinine 0.83, Est GFR (MDRD) Af Amer 88, Est GFR (MDRD) Non-Af 73, BUN/Creatinine Ratio 28.8 H, Glucose 131 H, Calcium 9.0, Troponin I < 0.015 09/22/18 00:25: PT 12.6, INR 1.0, APTT 25.8 09/22/18 00:25: B-Natriuretic Peptide 49.0 09/22/18 00:25: Magnesium 2.3 09/22/18 03:40: WBC 7.5, RBC 4.52, Hgb 13.2, Hct 40.9, MCV 90.5, MCH 29.2, MCHC 32.3, RDW 13.5, RDW Differential 44.0 H, Plt Count 295, MPV 9.4, Immature Gran % (Auto) 0.300, Neut % (Auto) 63.4, Lymph % (Auto) 24.3, Loíza % (Auto) 9.9, Eos % (Auto) 1.7, Baso % (Auto) 0.4, Absolute Neuts (auto) 4.8, Total Counted Not Reportable 09/22/18 03:40: Hemoglobin A1c 5.5 09/22/18 03:40: Sodium 144, Potassium 4.4, Chloride 112 H, Carbon Dioxide 26.0, Anion Gap 6, BUN 22 H, Creatinine 0.77, Est GFR (MDRD) Af Amer 97, Est GFR (MD RD) Non-Af 80, BUN/Creatinine Ratio 28.7 H, Glucose 109 H, Calcium 8.5, Triglycerides 64, Cholesterol 190, LDL Cholesterol 121, VLDL Cholesterol 13, HDL Cholesterol 56 09/22/18 03:40: Troponin I 0.045 09/22/18 06:12: Troponin I 0.043 Rhythm: EKG: ECHO: Stress Test: Cardiac Cath: PCI: CT Surgery: Holter monitor: EPS: PPM: CXR: Chest CT Scan: Assessment/Plan Interventional cardiology attending addendum: 1. Paroxysmal atrial fibrillation: Patient is spontaneously converted to normal sinus rhythm with the addition of Cardizem drip, and antihypertensive medications. She had minimal troponin release, and underwent a treadmill echoca rdiogram which showed no overt ischemic areas however she had profound dyspnea on exertion at peak exercise which may be an anginal equivalent. In tandem with that, the patient has had several episodes on a monthly basis of dyspnea on exertion, mild chest pain, and worsening fatigue. She also has a strong positive family history of coronary disease in her mother who has 5 stents in her mid 50s. Given the patient's chads?vascular 2 score she may require long-term anticoagulation therapy. Given her symptoms over the last year and the fact that her last catheterization showed minimal nonobstructive disease over 12 years ago, I recommended that she undergo a left heart catheterization tomorrow morning. She will continue on baby aspirin, be loaded with Plavix 300 mg x 1 now followed by 75 mg p.o. daily. If her catheterization shows no overt disease we will discontinue her Plavix and transition her onto anticoagulation therapy with either Xarelto or Eliquis. Given the paroxysmal nature of her arrhythmias, I would recommend long-term any coagulation therapy. In the meantime she will continue on Cardizem CD 240 mg p.o. daily for rate control. 2. Hyperlipidemia: Depending upon the patient's coronary catheterization we will determine whether she requires aggressive LDL reduction. Her LDL was 121. If she has any evidence of coronary disease and especially if she requires stenting I would recommend aggressive LDL reduction with statin based medications to an LDL less than 70. 3. Thank you very much for the opportunity to participate in the cardiac care of your patient. Consultation time took place between 1 PM and 1:30 PM. This note was generated using a voice recognition system and there may be incorrect words, spelling or punctuation that were not noted when reviewing the office note prior to saving. Code Visit Inpatient E&M: 28440 Init Hosp L2
--- NOTE | 2018-09-22 10:40 | PCM.HOSP.N ---
Hospitalist Note This is a 68-year-old female who was admitted with chest discomfort for 2 to 3 days intermittently, midsternal in location. On the day of admission, patient had palpitation. Currently, she does not have chest pain. She had A. fib with RVR, heart rate 140 to 155/min which is controlled currently in 110s. She had echocardiogram in 2011 which reported as EF 55%, normal atrial size and structurally normal valves. Patient had cardiac cath on October 2011 which showed minimal atherosclerotic disease, EF 55%. 1. Chest discomfort with palpitation: Patient had 2 troponins which are negative. Patient is going for stress echo. Currently patient is on baby aspirin. 2. A. 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 Patient was on Cardizem drip after 20 mg of IV Cardizem bolus. Patient also had 5 mg IV Cardizem bolus today for heart rate in 140s. [id number] score is 2. On Lovenox 1 mg/kg body weight every 12 hourly. 3. Other comorbidities include dyslipidemia, former smoker, mild obesity possible YUMIKO. 4. DVT prophylaxis: On Lovenox Active Medications Acetaminophen (Tylenol) 650 mg PO Q6H PRN PRN PRN Reason: Non-cardiac pain (mod-severe) Hydrocodone Bitart/Acetaminophen ([place] 5mg-325mg) 1 - 2 tablet PO Q6H PRN PRN PRN Reason: MOD-SEVERE PAIN (4-10/10) Al Hydroxide/Mg Hydroxide (Mylanta Ii) 15 - 30 ml PO Q4H PRN PRN PRN Reason: INDIGESTION Aspirin (Aspirin, Baby) 81 mg PO DAILY@0800 REPLACED BY [facility] Last Admin: 09/22/18 07:27 Dose: 81 mg Dextrose (D50w Syringe) 0 gm IV X1 PRN; Protocol PRN Reason: Hypoglycemia Enoxaparin Sodium (Lovenox) 90 mg 1 mg/kg (90 mg) SC Q12 REPLACED BY [facility] Glucagon () 1 mg IM .X1 PRN PRN Reason: Hypoglycemia Hydralazine HCl (Apresoline Iv) 10 mg IV Q4H PRN PRN PRN Reason: SBP > 160 Sodium Chloride () 1,000 mls @ 100 mls/hr IV .Q10H REPLACED BY [facility] Last Admin: 09/22/18 06:30 Dose: 100 mls/hr Melatonin (Melatonin) 3 mg PO QHS PRN PRN PRN Reason: INSOMNIA Morphine Sulfate () 1 - 2 mg IV Q4H PRN PRN PRN Reason: PAIN Ondansetron HCl (Zofran) 4 mg IV Q8H PRN PRN PRN Reason: NAUSEA/VOMITING Sodium Chloride () 5 - 15 ml IV UD PRN PRN Reason: SALINE FLUSH Last Admin: 09/22/18 09:20 Dose: 10 ml Laboratory Results 09/22/18 00:25: WBC 7.8, RBC 4.92, Hgb 14.6, Hct 44.3, MCV 90.0, MCH 29.7, MCHC 33.0, RDW 13.5, RDW Differential 43.9, Plt Count 301, MPV 9.5, Immature Gran % (Auto) 0.300, Neut % (Auto) 45.0 L, Lymph % (Auto) 39.1, Eddy % (Auto) 12.8 H, Eos % (Auto) 2.4, Baso % (Auto) 0.4, Absolute Neuts (auto) 3.5, Absolute Lymphs (auto) 3.05, Total Counted Not Reportable 09/22/18 00:25: Sodium 140, Potassium 3.9, Chloride 107, Carbon Dioxide 27.0, Anion Gap 6, BUN 24 H, Creatinine 0.83, Estim Creat Clear Calc 57.57, Est GFR (MDRD) Af Amer 88, Est GFR (MDRD) Non-Af 73, BUN/Creatinine Ratio 28.8 H, Glucose 131 H, Calcium 9.0, Troponin I < 0.015 09/22/18 00:25: PT 12.6, INR 1.0, APTT 25.8 09/22/18 00:25: B-Natriuretic Peptide 49.0 09/22/18 00:25: TSH 1.68 09/22/18 00:25: Magnesium 2.3 09/22/18 03:40: WBC 7.5, RBC 4.52, Hgb 13.2, Hct 40.9, MCV 90.5, MCH 29.2, MCHC 32.3, RDW 13.5, RDW Differential 44.0 H, Plt Count 295, MPV 9.4, Immature Gran % (Auto) 0.300, Neut % (Auto) 63.4, Lymph % (Auto) 24.3, Eddy % (Auto) 9.9, Eos % (Auto) 1.7, Baso % (Auto) 0.4, Absolute Neuts (auto) 4.8, Absolute Lymphs (auto) 1.82, Total Counted Not Reportable 09/22/18 03:40: Hemoglobin A1c 5.5 09/22/18 03:40: Sodium 144, Potassium 4.4, Chloride 112 H, Carbon Dioxide 26.0, Anion Gap 6, BUN 22 H, Creatinine 0.77, Estim Creat Clear Calc 49.80, Est GFR (MDRD) Af Amer 97, Est GFR (MDRD) Non-Af 80, BUN/Creatinine Ratio 28.7 H, Glucose 109 H, Calcium 8.5, Triglycerides 64, Cholesterol 190, LDL Cholesterol 121, VLDL Cholesterol 13, HDL Cholesterol 56 09/22/18 03:40: Troponin I 0.045 09/22/18 06:12: Troponin I 0.043
--- NOTE | 2018-09-22 10:49 | CCHN_ITS ---
Hospitalist Note This is a 68-year-old female who was admitted with chest discomfort for 2 to 3 days intermittently, midsternal in location. On the day of admission, patient had palpitation. Currently, she does not have chest pain. She had A. fib with RVR, heart rate 140 to 155/min which is controlled currently in 110s. She had echocardiogram in 2011 which reported as EF 55%, normal atrial size and structurally normal valves. Patient had cardiac cath on October 2011 which showed minimal atherosclerotic disease, EF 55%. 1. Chest discomfort with palpitation: Patient had 2 troponins which are negative. Patient is going for stress echo. Currently patient is on baby aspirin. 2. A. 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 Patient was on Cardizem drip after 20 mg of IV Cardizem bolus. Patient also had 5 mg IV Cardizem bolus today for heart rate in 140s. [id number] score is 2. On Lovenox 1 mg/kg body weight every 12 hourly. 3. Other comorbidities include dyslipidemia, former smoker, mild obesity possible YUMIKO. 4. DVT prophylaxis: On Lovenox Active Medications Acetaminophen (Tylenol) 650 mg PO Q6H PRN PRN PRN Reason: Non-cardiac pain (mod-severe) Hydrocodone Bitart/Acetaminophen ([place] 5mg-325mg) 1 - 2 tablet PO Q6H PRN PRN PRN Reason: MOD-SEVERE PAIN (4-10/10) Al Hydroxide/Mg Hydroxide (Mylanta Ii) 15 - 30 ml PO Q4H PRN PRN PRN Reason: INDIGESTION Aspirin (Aspirin, Baby) 81 mg PO DAILY@0800 [facility] Last Admin: 09/22/18 07:27 Dose: 81 mg Dextrose (D50w Syringe) 0 gm IV X1 PRN; Protocol PRN Reason: Hypoglycemia Enoxaparin Sodium (Lovenox) 90 mg 1 mg/kg (90 mg) SC Q12 [facility] Glucagon () 1 mg IM .X1 PRN PRN Reason: Hypoglycemia Hydralazine HCl (Apresoline Iv) 10 mg IV Q4H PRN PRN PRN Reason: SBP > 160 Sodium Chloride () 1,000 mls @ 100 mls/hr IV .Q10H [facility] Last Admin: 09/22/18 06:30 Dose: 100 mls/hr Melatonin (Melatonin) 3 mg PO QHS PRN PRN PRN Reason: INSOMNIA Morphine Sulfate () 1 - 2 mg IV Q4H PRN PRN PRN Reason: PAIN Ondansetron HCl (Zofran) 4 mg IV Q8H PRN PRN PRN Reason: NAUSEA/VOMITING Sodium Chloride () 5 - 15 ml IV UD PRN PRN Reason: SALINE FLUSH Last Admin: 09/22/18 09:20 Dose: 10 ml Laboratory Results 09/22/18 00:25: WBC 7.8, RBC 4.92, Hgb 14.6, Hct 44.3, MCV 90.0, MCH 29.7, MCHC 33.0, RDW 13.5, RDW Differential 43.9, Plt Count 301, MPV 9.5, Immature Gran % (Auto) 0.300, Neut % (Auto) 45.0 L, Lymph % (Auto) 39.1, Anderson % (Auto) 12.8 H, Eos % (Auto) 2.4, Baso % (Auto) 0.4, Absolute Neuts (auto) 3.5, Absolute Lymphs (auto) 3.05, Total Counted Not Reportable 09/22/18 00:25: Sodium 140, Potassium 3.9, Chloride 107, Carbon Dioxide 27.0, Anion Gap 6, BUN 24 H, Creatinine 0.83, Estim Creat Clear Calc 57.57, Est GFR (MDRD) Af Amer 88, Est GFR (MDRD) Non-Af 73, BUN/Creatinine Ratio 28.8 H, Glucose 131 H, Calcium 9.0, Troponin I < 0.015 09/22/18 00:25: PT 12.6, INR 1.0, APTT 25.8 09/22/18 00:25: B-Natriuretic Peptide 49.0 09/22/18 00:25: TSH 1.68 09/22/18 00:25: Magnesium 2.3 09/22/18 03:40: WBC 7.5, RBC 4.52, Hgb 13.2, Hct 40.9, MCV 90.5, MCH 29.2, MCHC 32.3, RDW 13.5, RDW Differential 44.0 H, Plt Count 295, MPV 9.4, Immature Gran % (Auto) 0.300, Neut % (Auto) 63.4, Lymph % (Auto) 24.3, Anderson % (Auto) 9.9, Eos % (Auto) 1.7, Baso % (Auto) 0.4, Absolute Neuts (auto) 4.8, Absolute Lymphs (auto) 1.82, Total Counted Not Reportable 09/22/18 03:40: Hemoglobin A1c 5.5 09/22/18 03:40: Sodium 144, Potassium 4.4, Chloride 112 H, Carbon Dioxide 26.0, Anion Gap 6, BUN 22 H, Creatinine 0.77, Estim Creat Clear Calc 49.80, Est GFR (MDRD) Af Amer 97, Est GFR (MDRD) Non-Af 80, BUN/Creatinine Ratio 28.7 H, Glucose 109 H, Calcium 8.5, Triglycerides 64, Cholesterol 190, LDL Cholesterol 121, VLDL Cholesterol 13, HDL Cholesterol 56 09/22/18 03:40: Troponin I 0.045 09/22/18 06:12: Troponin I 0.043
--- NOTE | 2018-09-22 11:35 | CASEMGMT ---
JEREL CAMARA assessment: Face to Face with patient for initial transition planning/care coordination assessment. JEREL CAMARA introduced self and role at [facility], pt voices understanding and consents to assessment at this time. Pt is sitting up in bed in no distress at this time. Pt is A/Ox4 at this time and consents to assessment at this time. Care providers, pharmacy, and demographics verified at this time. PCP: Tawanna Specialists: Orthopedic at [facility] but hasn't seen in years Preferred Pharmacy: [facility] Insurance: MCR/[employer] Prescription Benefit: Silver Rx Living Will/HPOA: Pt states does not currently have LW/HPOA but would like information and to complete AD info at this time. Azael SW aware at this time, voices understanding. LNOK: Cedric Nevarez, Living Arrangements: Pt states lives with in split level home and states has to take stairs one at a time d/t knee issues but states no other concerns at home at this time. Transportation: Pt states drives self and states no transportation concerns at this time. DME/HHC: Pt states has grab bars, walker, and shower chair but does not use DME currently. Pt states no need for any further DME at this time. Pt states no hx of HHC or SNF in the past. Pt states no concerns with going home at time of discharge. 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 Pt states does not smoke but does have about 2 drinks every week. Pt states no further concerns/needs at this time. CM to follow for any further discharge planning/needs. Advised pt to ask for CM if any further questions/concerns/needs arise, voices understanding. Pt Goal: Home Plan[place] JEREL CAMARA
[2018-09-22] MEDS: Enoxaparin 100 MG/ML Syringe 90 MG SC ×2 (12:55→20:50)
--- NOTE | 2018-09-22 14:36 | CASEMGMT ---
SW completed Healthcare POA and Healthcare LW with patient and her . Copies of patient's documents were put in her chart. Originals and copies given to patient. Jolynn KENNEDY MSW
[2018-09-22] MEDS: Clopidogrel Bisulfate 300 MG Tablet PO (14:50)
[2018-09-22 19:57] LABS: Mucous, Urine 0 SEEN /hpf (<or=2+); Red Blood Cells-Urine 0 SEEN /hpf (0-5)
[2018-09-22 20:57] LABS: Color, Urine Yellow (Yellow); Glucose, Dipstick Normal (Normal); Ketone-Dipstick Negative (Negative); Leukocyte Esterase-Dipstick 500 /ul (Negative); Nitrite-Dipstick Negative (Negative); Occult Blood-Urine 10 /ul (Negative); Protein-Dipstick Negative (Negative); Urine Bilirubin Dipstick Negative (Negative); Urine Clarity Clear (Clear); Urine Urobilinogen Normal (Normal)
[2018-09-22 21:30] LABS: Bacteria RARE /hpf (None Seen); Squamous Epithelial Cells - UA 0-5 SEEN /hpf (5-10); White Blood Cells 5-10 SEEN /hpf (0-5)
[2018-09-23] VITALS (11 sets, daily range): BP systolic 116–149; BP diastolic 49–79; PULSE 50–79; RESP 16–20; TEMP 36.6–36.7; O2SAT 96–99
[2018-09-23] MEDS: 0.9% Normal Saline 1,000 ML 100 ML IV (03:25)
--- NOTE | 2018-09-23 05:00 | EKG12_ITS ---
Test Reason : RHYTHM Blood Pressure : / mmHG Vent. Rate : 101 BPM Atrial Rate : 084 BPM P-R Int : 000 ms QRS Dur : 068 ms QT Int : 332 ms P-R-T Axes : 000 -02 007 degrees QTc Int : 430 ms Atrial fibrillation with rapid ventricular response Abnormal ECG When compared with ECG of 22-SEP-2018 00:19, MANUAL COMPARISON REQUIRED, DATA IS UNCONFIRMED Confirmed by BRAXTON ORTIZ ([id number]), image editor VICKY DE PAZ ([id number]) on 09/27/2018 2:25:57 PM Referred By: TING Confirmed By:AVERY ORTIZ
[2018-09-23 05:04] LABS: Hematocrit 36.8 % (37-47); Hemoglobin 11.9 g/dl (12.0-15.0); Mean Corp Hgb Conc 32.3 g/gl (32-36); Mean Corpuscular Volume 92.7 fL (81-99); Mean Platelet Vol. 9.6 fl (6.2-12.0); Platelet Count 227 K/mm3 (150-450); RBC Distribution Width CV 13.8 % (11.6-14.6); RBC Distribution Width SD 46.6 fl (35.1-43.9); Red Blood Count 3.97 M/mm3 (4.2-5.4); White Blood Count 5.9 K/mm3 (4.4-11.0)
[2018-09-23 05:09] LABS: International Normalized Ratio 1.2; Partial Thromboplast Time 40.5 Seconds (24.1-36.2); Prothrombin Time (Protime)PT. 14.8 SECONDS (11.7-14.9)
[2018-09-23 05:13] LABS: Anion Gap 5 (5-15); BUN 13 mg/dL (7-18); BUN/Creat Ratio 20.1 RATIO (10-20); Chloride 113 mmol/L (98-107); Creatinine, Serum 0.65 mg/dL (0.55-1.02); EST Glomerular Filtration Rate 97 mL/min (>60); Est Glom Filt Rate - Afr Amer 118 mL/min (>60); Glucose 90 mg/dL (74-106); Sodium Level 144 mmol/L (136-145)
[2018-09-23 05:16] LABS: Scan Indicated on CBC? Y/N NO
[2018-09-23] MEDS: Aspirin 81 MG TAB.CHEW PO (06:28)
[2018-09-23] MEDS: Clopidogrel Bisulfate 75 MG Tablet PO (06:29)
[2018-09-23] MEDS: dilTIAZem CD 240 MG Capsule PO (06:29)
[2018-09-23] MEDS: DiphenhydrAMINE 25 MG Capsule 50 MG PO (08:55)
--- NOTE | 2018-09-23 09:18 | CASEMGMT ---
SW completed Healthcare POA and Healthcare LW with patient. Copies placed in patient's chart. Jolynn KENNEDY MSW
--- NOTE | 2018-09-23 09:51 | CL.D_ITS ---
Patient Name: MEAGAN GONZALEZ Study Date: 09/23/2018 Performing: Abiel Treadwell MD Ht: 64.96 inches 165 cm : 1950 Wt: 176.37 lbs 80 kg Age: 68 Gender: female BSA: 1.87 PROCEDURE(S) PERFORMED [id number]/COR/LV CLINICAL PROFILE AND INDICATIONS Indications: New Onset Angina <= 2 months, Suspected CAD, Cardiac Arrythmia Heart Failure: None Stress/Imaging Standard Exercise Stress Test: Yes Result: Negative Angina Classification Anginal Classification w/in 2 Weeks: CCS IV Comorbidities/Risk Factors: Hypertension CONCLUSIONS Normal LV size, wall motion,and systolic function Non obstructive coronary arteries LVEF: by LV gram 65 % RECOMMENDATIONS Management as per referring Party Chief d/c plavix, start xeralto in 3 days if groin is stable. Continue cardizem. Start cozaar 25mg po bid . F/u with Dr Treadwell D/c home later today if BP and groin is stable. DESCRIPTION OF PROCEDURE The patient arrived to the procedure lab. The risks and benefits of the procedure as well as a full d escription of our services here and current unavailability of surgical backup were fully explained to the patient and/or their significant other prior to the catheterization. The Timeout was completed, verifying the correct patient and procedure. The patient's procedural site was prepped and draped in the usual fashion. Local anesthetic was given subcutaneously to right groin region with Lidocaine 2%. Using a modified Seldinger technique, arterial access was obtained via the right femoral artery, a 4 Fr sheath was inserted Left Coronary Artery selective angiography was performed in multiple views us ing a 4 Fr. JL4 catheter. Right Coronary Artery selective angiography was then performed in multiple views using a 4 Fr. 3DRC catheter. Left Ventriculography was performed in GARCIA projection using a 4 Fr . Pigtail catheter. LV to AO pullback pressures were then recorded.The arterial sheath was pulled and manual compression applied until hemostasis is achieved. CORONARY ANGIOGRAPHY DOMINANCE: Co- Dominant LEFT HEART ASSESSMENT Left Ventricular Ejection Fraction: by LV Gram 65 % Normal LV wall motion Normal Left Ventricular systolic function LVEDP: 21 mmHg LEFT MAIN: Angiographically normal LEFT ANTERIOR DESCENDING ARTERY: MID LAD: Mild calcification, 20 % Stenosis CIRCUMFLEX ARTERY: Angiographically normal RIGHT CORONARY ARTERY: Angiographically normal COMPLICATIONS No Complications PROCEDURE MEDICATIONS Oxygen: 2 L/min via nasal cannula Nitro Tab .4 mg PO 09/23/2018 09:37:46 SUMMARY OF HEMODYNAMIC DATA Time AIR REST ECG 09:09:58 AO 171/74 (109) SA 09:28:34 LV 183/-20, 22 09:35:51 LV 184/-19, 25 09:36:01 LVp 188/-18, 21 09:36:20 AOp 187/69 (115) 09:36:25 Signed By Abiel Treadwell MD On 09/23/2018 09:50:39 Abiel Treadwell MD
--- NOTE | 2018-09-23 13:22 | DCINST_ITS ---
- Discharge Diagnoses Current Active Problems: Current Active and Chronic Problems History of left heart catheterization (Chronic 09/23/18) Normal LV size, wall motion,and systolic function; Non obstructive coronary arteries; LVEF: 65 % Atrial fibrillation with RVR (Acute) HLD (hyperlipidemia) (Chronic) Osteoarthritis (Chronic) Obesity (BMI 30.0-34.9) (Chronic) You will use the following diet at home:: Cardiac Discharge Activity: Return to Normal Activity, May Not Drive - for 2-3 days Weight Bearing Status: Weight bearing as tolerated Call your doctor if you observe: Fever of 101 or Higher, Shortness of breath, Fainting spells, Swelling in the ankles, Chest pain, Increased palpitations (irregular heartbeat) Pending Tests on Discharge: Start Eliquis on 09/27/2018. Allergies/Adverse Reactions: Allergies No Known Allergies Allergy (Verified 10/07/15 05:08) Medications to take at Discharge Apixaban [Eliquis] 5 mg PO BID #60 tablet 09/23/18 Aspirin [Aspirin, Baby] 81 mg PO DAILY@0800 #30 tab.chew 09/23/18 Diltiazem CD [Cardizem CD] 240 mg PO DAILY #30 capsule 09/23/18 Losartan Potassium [Cozaar] 25 mg PO BID #60 tablet 09/23/18 The following prescriptions were given: Aspirin [Aspirin, Baby] 81 mg PO DAILY@0800 #30 tab.chew Diltiazem CD [Cardizem CD] 240 mg PO DAILY #30 capsule Apixaban [Eliquis] 5 mg PO BID #60 tablet Losartan Potassium [Cozaar] 25 mg PO BID #60 tablet Primary Care Physician: Trisha Stacy DO [Primary Care Provider] - Please follow up with your Primary Care Physician in: in 2 weeks Test Results: Test results from this visit will be discussed in further detail at your follow- up appointment, if applicable. Please Follow Up With: Yuriy Ahuja MD When: in 3-4 weeks
--- NOTE | 2018-09-23 13:32 | DS.PCM_ITS ---
Discharge Date and Diagnosis - Problem List Patient Problems: Active and Suspected Problems Atrial fibrillation with RVR (Acute) Date of Admission: 09/22/18 Date of Discharge: 09/23/18 - Primary Discharge Diagnosis Active and Suspected Problems Atrial fibrillation with RVR (Acute) Mild coronary artery disease. Acute coronary syndrome ruled out - Secondary Discharge Diagnosis Chronic Problems History of left heart catheterization (Chronic 09/23/18) Normal LV size, wall motion,and systolic function; Non obstructive coronary arteries; LVEF: 65 % HLD (hyperlipidemia) (Chronic) Osteoarthritis (Chronic) Obesity (BMI 30.0-34.9) (Chronic) Hospital Course and Treatment Summary of Care Provided: [] This is a 68-year-old female who was admitted with chest discomfort for 2 to 3 days intermittently, midsternal in location. On the day of admission, patient had palpitation. Currently, she does not have chest pain. She had A. fib with RVR, heart rate 140 to 155/min which was controlled with IV Cardizem drip which was later discontinued and started on Cardizem CD 240 mg daily. Heart rate is controlled in 70s. She had echocardiogram in 2011 which reported as EF 55%, normal atrial size and structurally normal valves. Patient had cardiac cath on October 2011 which showed minimal atherosclerotic disease, EF 55%. 1. Chest discomfort with palpitation: Patient had 2 troponins which are negative. Currently patient is on baby aspirin. Patient had a stress echo which was negative for EKG or echocardiographic criteria for stress-induced ischemia but test was terminated because of shortness of breath during the stress and therefore decision was made for cardiac cath. Cardiac cath was done on 09/24/19. It was reported as normal LV size, wall motion and systolic function. Nonobstructive coronary arteries. EF by LV gram 65%. Mid LAD calcification 20% stenosis. Patient is being discharged on baby aspirin, Eliquis 5 mg twice daily, to start from 09/27/2018, losartan 25 mg twice daily and atorvastatin 2. A. 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 Patient was on Cardizem drip after 20 mg of IV Cardizem bolus. Patient also had 5 mg IV Cardizem bolus today for heart rate in 140s. [id number] score is 2. On Lovenox 1 mg/kg body weight every 12 hourly. 3. Dyslipidemia: Fasting profile shows LDL 121, HDL 56, triglycerides 64 and total cholesterol 190. Patient is discharged on atorvastatin 40 mg daily. Other comorbidities include dyslipidemia, former smoker, mild obesity possible YUMIKO. 4. DVT prophylaxis: On Lovenox Discharge medication reconciliation done. Discharge follow-up instructions completed. Discharge process discussed with the patient and all questions were answered to patient's satisfaction. Prescriptions were sent to pharmacy. Patient was instructed to start Eliquis from 2018. Total time spent, exact 35 minutes on discharge meds reconciliation, examination, review of imaging and blood test and discussion with the patient on follow-up instructions. Patient Problems: Active and Suspected Problems Atrial fibrillation with RVR (Acute) Subjective: Denies chest pain or shortness of breath. Patient had cardiac cath in the morning. No major or significant coronary artery disease found - Physical Exam General: Alert, Oriented x3, Cooperative HEENT: Atraumatic, PERRLA, EOMI, Normocephalic Neck: Supple, No JVD, Negative Carotid Bruits Lungs: Clear to auscultation, Normal air movement, No rhonchi, No wheeze, No rales Cardiovascular: Regular rate, Regular Rhythm, Normal S1, Normal S2, No murmurs Abdomen: Bowel Sounds Present, Soft, Non Tender, Non-Distended Extremities: No edema, Capillary Refill Less than 3 Seconds Skin: No rashes, No breakdown Musculoskeletal: No Tenderness to Palpation of Joints or Extremities, Arthritic Changes Neurological: Cranial nerves II-XII grossly intact, Deep Tendon Reflexes 2+/4 and Symmetrical, Neuro grossly intact Psych/Mental Status: Normal Affect, Appropriate Vital Signs Temp Pulse Resp BP Pulse Ox 98.1 F 76 18 117/49 L 99 09/23/18 10:00 09/23/18 11:45 09/23/18 11:45 09/23/18 11:45 09/23/18 11:45 Oxygen Flow Rate (L/min) 2 Oxygen Delivery Method Room Air Weight: 175 lb 14.862 oz Body Mass Index (BMI) 29.2 Intake and Output for Last 24 Hours 09/21/18 09/22/18 09/23/18 23:59 23:59 23:59 Intake Total 3275.7 / 3275.7 863 / 863 Output Total 2250 / 2250 1425 / 1425 Balance 1025.7 / 1025.7 -562 / -562 Laboratory Tests Past 24 Hrs 09/22/18 09/23/18 09/23/18 19:49 04:50 04:50 WBC 5.9 RBC 3.97 L Hgb 11.9 L Hct 36.8 L MCV 92.7 MCH 30.0 MCHC 32.3 RDW 13.8 RDW Differential 46.6 H Plt Count 227 MPV 9.6 PT 14.8 INR 1.2 APTT 40.5 H Sodium Potassium Chloride Carbon Dioxide Anion Gap BUN Creatinine Estim Creat Clear Calc Est GFR (MDRD) Af Amer Est GFR (MDRD) Non-Af BUN/Creatinine Ratio Glucose Calcium Urine Color Yellow Urine Clarity Clear Urine pH 6.0 Ur Specific [place] 1.010 Urine Protein Negative Urine Glucose (UA) Normal Urine Ketones Negative Urine Occult Blood 10 H Urine Nitrite Negative Urine Bilirubin Negative Urine Urobilinogen Normal Ur Leukocyte Esterase 500 H Urine RBC 0 SEEN Urine WBC 5-10 SEEN Ur Squamous Epith Cells 0-5 SEEN Urine Bacteria RARE Urine Mucus 0 SEEN 09/23/18 04:50 WBC RBC Hgb Hct MCV MCH MCHC RDW RDW Differential Plt Count MPV PT INR APTT Sodium 144 Potassium 4.0 Chloride 113 H Carbon Dioxide 26.0 Anion Gap 5 BUN 13 Creatinine 0.65 Estim Creat Clear Calc 49.80 Est GFR (MDRD) Af Amer 118 Est GFR (MDRD) Non-Af 97 BUN/Creatinine Ratio 20.1 H Glucose 90 Calcium 8.0 L Urine Color Urine Clarity Urine pH Ur Specific [place] Urine Protein Urine Glucose (UA) Urine Ketones Urine Occult Blood Urine Nitrite Urine Bilirubin Urine Urobilinogen Ur Leukocyte Esterase Urine RBC Urine WBC Ur Squamous Epith Cells Urine Bacteria Urine Mucus Discharge Activity: Return to Normal Activity, May Not Drive - for 2-3 days Weight Bearing Status: Weight bearing as tolerated Call your doctor if you observe: Fever of 101 or Higher, Shortness of breath, Fainting spells, Swelling in the ankles, Chest pain, Increased palpitations (irregular heartbeat) Home Medications: Medications to take at Discharge Apixaban [Eliquis] 5 mg PO BID #60 tablet 09/23/18 Aspirin [Aspirin, Baby] 81 mg PO DAILY@0800 #30 tab.chew 09/23/18 Diltiazem CD [Cardizem CD] 240 mg PO DAILY #30 capsule 09/23/18 Losartan Potassium [Cozaar] 25 mg PO BID #60 tablet 09/23/18 Following Prescrptions Were Given to Patient: Aspirin [Aspirin, Baby] 81 mg PO DAILY@0800 #30 tab.chew Diltiazem CD [Cardizem CD] 240 mg PO DAILY #30 capsule Apixaban [Eliquis] 5 mg PO BID #60 tablet Losartan Potassium [Cozaar] 25 mg PO BID #60 tablet Primary Care Physician: Trisha Stacy DO [Primary Care Provider] - Please follow up with your Primary Care Physician in: in 2 weeks Please Follow Up With: Yuriy Ahuja MD When: in 3-4 weeks Medical Necessity - Tobacco Use Smoking Status: Former smoker Tobacco Use: Non-smoker Meaningful Use Info Meaningful Use Diagnoses (Choose all that apply): None applicable Code Visit Inpatient E&M: 35116 Disch Hosp
== END 2018-09-23 15:40 | disposition home or self-care (01) | DRG 287 ==
LOC: ED 00:42 → PCU 02:21
PROVIDERS: Internal Medicine Cardiovascular Disease; Admitting Provider Family Medicine; Emergency Provider Emergency Medicine; Family Provider Internal Medicine; PCP Internal Medicine; Visit Provider Internal Medicine
DX: I48.0 Paroxysmal atrial fibrillation (principal); E78.5 Hyperlipidemia, unspecified; Z87.891 Personal history of nicotine dependence; E66.9 Obesity, unspecified; Z68.29 Body mass index [BMI] 29.0-29.9, adult; I25.10 Atherosclerotic heart disease of native coronary artery without angina pectoris; M19.90 Unspecified osteoarthritis, unspecified site
CPT/HCPCS: 36415; 71045; 71275; 80048; 80061; 81001; 83036; 83735; 83880; 84443; 84484; 85025; 85027; 85610; 85730; 93005; 93017; 93306; 93350; 93458; 99285; J7030; Q9957; Q9967; A4216; C1769; C1894; C8928

== ENCOUNTER 2020-01-25 08:00 | Outpatient (RCR) | payer MEDICARE, OTHER, SELFPAY ==
[2018-10-18 15:23] VITALS: BMI 28.8
--- NOTE | 2020-01-04 10:15 | HP.PTEVAL_ITS ---
Patient's Visit Information MEAGAN GONZALEZ is a 69 year old F referred to Physical Therapy by Dr. Trisha Stacy DO with a diagnosis of KNEE PAIN,OA. Date of Evaluation: 01/04/20 Physical Therapist: Humberto Donovan PT, Cert MDT, OCS - Visit Plan Frequency: 2x /Week Duration: 4 Weeks Plan: PT INTERVETIONS ROM BILATERAL KNEE'S,PRE'S QUAD/HAMS/HIP ,FUNCTIONAL STRENGTHNEING,MODALTIES NEEDED - Subjective This 69 y/o female presents to physical thrapy with Bilateral knee pain knee pain.Patient has had right > left knee pain many years. Patient seen DR with h/o DJD Stage 4 right ,left OA mild. Patient seen DR Dwyer at [facility] tried synvix injection. Patient also had stem cell injection. Patient has more pain medial region right with sonme edema. Patient is canidate for knee replacement but wants wait. Aggraveting factors stairs one step at time,unbale to squat and kneeling. Alleviating factors rest. Patient denies dneis parathesai /tingling. Patient sleeping okay at night. Patient condtion affectrs ADL'Sa and housework tasks. Patient symptoms affects QOL. SOCIAL: . VOCATION: Chiroprcator - Pain Right Knee Pain Intensity (Out of 10): 4 Pain Intensity Range: 10 Left Knee Pain Intensity (Out of 10): 2 Pain Intensity Range: 10 - Objective POSTURE: mild knee varus right > left. GAIT: reciprocal pattern mild anatalgic gait. NEURO: intact. PALPATION: medial aspect. AROM:Right 0-110 supine knee flexion,0-130 left supine flexion. FLEXABLITY: hams WFL. MMT: quads/hamd 4- /5,hip abd 3+/5 ,ankle 4/5. STAIRS: one step at time. MMT: - Goals Goal 1:: Independant with HEP. Goal Time Frame: 4-6 Weeks Goal 2:: Decrease knee pain by 50% or > to improve function. Goal Time Frame: 4-6 Weeks Goal 3:: Patient to increase AROM knee right knee flexion 0-120 degrees to improve function. Goal Time Frame: 4-6 Weeks Goal 4:: Patient to increase strength quads/hams 4/5 and hip abd 4-/5 to improve function. Goal Time Frame: 4-6 Weeks Goal 5:: Patient to improve LFES score by 5 points or > TO improve QOL. Goal Time Frame: 4-6 Weeks - Rehabilitation Potential Physical Therapy Diagnosis: Patient has marked OA right with decrease ROM ,pain ,weakness hip/knee impairs ADLS' walking ,stairs and function tye duttakilladonis PT Rehabilitation Potential: Good - Anticipated Interventions Patient/Client Instruction: Educate patient on: Condition, Plan of Care For the Purpose of:: To decrease pain, To increase ROM, To increase oxygenation perfusion, To improve muscle performance and motor function, To improve ability to perform ADL's, To increase tolerance to activity/condition/position, To improve ability of physical actions for home/community/work/leisure, To improve health of tissue, To decrease soft tissue restriction, To increase flexibility/ROM, To improve ability to perform tasks related to life management Therapeutic Exercise to Include: Strength training, Endurance training, Balance training, Flexibilty training, Active ROM Comment: HIP/KNEE For the Purpose of:: To decrease pain, To increase ROM, To improve muscle performance and motor function, To improve ability to perform ADL's, To increase tolerance to activity/condition/position, To improve ability of physical actions for home/community/work/leisure, To improve health of tissue, To decrease soft tissue restriction, To increase flexibility/ROM, To reduce risk of recurrence, To improve ability to perform tasks related to life management TENS: Yes Cryotherapy (ice pack, ice massage): Yes Thermo therapy (hot pack): Yes Ultrasound (thermal/non thermal): Yes For the Purpose of:: To decrease pain, To increase ROM, To improve nutrient delivery to tissue, To increase oxygenation perfusion, To improve health of tissue, To decrease soft tissue restriction Thank you for the opportunity to evaluate your patient. For Medicare and Medicare HMO plans, please review the plan of care and approve it. It will need to be FAXED BACK to us at [phone] for Medicare purposes. For Medicare only, by signing this I certify the plan of care. Please let me know if there are questions or concerns regarding this plan of care. Physician Signature: Date:
--- NOTE | 2020-04-26 10:18 | HP.PT.NRP ---
MEAGAN GONZALEZ was seen in my office for initial evaluation on 01/04/20. The following Plan of Care was established for this patient: Initial Frequency: 2x /Week Initial Duration: 4 Weeks Patient/Client Instruction: Educate patient on: Condition, Plan of Care For the Purpose of:: To decrease pain, To increase ROM, To increase oxygenation perfusion, To improve muscle performance and motor function, To improve ability to perform ADL's, To increase tolerance to activity/condition/position, To improve ability of physical actions for home/community/work/leisure, To improve health of tissue, To decrease soft tissue restriction, To increase flexibility/ROM, To improve ability to perform tasks related to life management Therapeutic Exercise to Include: Strength training, Endurance training, Balance training, Flexibilty training, Active ROM For the Purpose of:: To decrease pain, To increase ROM, To improve muscle performance and motor function, To improve ability to perform ADL's, To increase tolerance to activity/condition/position, To improve ability of physical actions for home/community/work/leisure, To improve health of tissue, To decrease soft tissue restriction, To increase flexibility/ROM, To reduce risk of recurrence, To improve ability to perform tasks related to life management TENS: Yes Cryotherapy (ice pack, ice massage): Yes Thermo therapy (hot pack): Yes Ultrasound (thermal/non thermal): Yes For the Purpose of:: To decrease pain, To increase ROM, To improve nutrient delivery to tissue, To increase oxygenation perfusion, To improve health of tissue, To decrease soft tissue restriction This patient was last seen in our office . Pertinent comments regarding their Physical therapy will appear below: Patient was seen for knee pain OA for HEP for ROM/strengthening with modifications thus is d/c At this point I will be discontinuing this patient from physical therapy. I would be happy to see this patient again in the future if found appropriate by the physician. Thank you! Humberto Donovan, PT, Cert MDT, OCS
== END 2020-01-25 19:00 | disposition home or self-care (01) ==
LOC: PT 08:00
PROVIDERS: PCP Internal Medicine; Referring Provider Internal Medicine; Visit Provider Internal Medicine
DX: M25.569 Pain in unspecified knee (principal); M17.10 Unilateral primary osteoarthritis, unspecified knee
CPT/HCPCS: 97110; 97162

== ENCOUNTER → 2020-08-17 10:27 | Outpatient (CLI) | payer MEDICARE, OTHER, SELFPAY ==
[2018-10-18 15:23] VITALS: BMI 28.8
[2020-08-17 10:49] LABS: Potassium 4.5 mmol/L (3.5-5.1)
== END ==
PROVIDERS: PCP Internal Medicine; Referring Provider Nurse Practitioner; Visit Provider Nurse Practitioner
DX: E87.5 Hyperkalemia (principal)
CPT/HCPCS: 36415; 84132

== ENCOUNTER 2020-11-25 04:28 | Inpatient (IN) | payer MEDICARE, OTHER, SELFPAY ==
[2018-10-18 15:23] VITALS: BMI 28.8
[2020-11-25] VITALS (31 sets, daily range): BP systolic 79–132; BP diastolic 52–95; PULSE 48–158; RESP 12–20; TEMP 36.3–36.9; O2SAT 96–100; BMI 28.0
--- NOTE | 2020-11-25 04:36 | EKG12_ITS ---
Test Reason : PALPATATIONS Blood Pressure : / mmHG Vent. Rate : 157 BPM Atrial Rate : 156 BPM P-R Int : 000 ms QRS Dur : 068 ms QT Int : 280 ms P-R-T Axes : 000 -07 -14 degrees QTc Int : 452 ms Atrial fibrillation with rapid ventricular response Minimal voltage criteria for LVH, may be normal variant Nonspecific ST and T wave abnormality Abnormal ECG Confirmed by NAYE DENNISON, GLADIS ([id number]), editor dictionary VICKY DE PAZ ([id number]) on 11/28/2020 9:17:56 AM Referred By: CHENCHO Confirmed By:GLADIS YANCEY MD
--- NOTE | 2020-11-25 04:43 | EDS_ITS ---
HPI History of Present Illness Chief Complaint: Palpitations Narrative Narrative: Patient woke up with palpitations, she has a history of atrial fibrillation 2 years ago however she has not had an episode since then. She has not anticoagulated. She woke up this morning feeling like the last time she had A. fib. She has no chest pain. She has no difficulty breathing. She has no recent fever or chills. No history of thyroid problems [facility] Medical History (Updated 11/25/20 @ 05:[address] Yuriy Burns MD) Atrial fibrillation with RVR HLD (hyperlipidemia) Hypersomnia Osteoarthritis Snoring Ventricular tachycardia Home Medications NK 11/25/20 [History Last Taken Unknown] Allergy/AdvReac Type Severity Reaction Status Date / Time No Known Allergies Allergy Verified 05/09/19 08:30 Family History Mother Atrial fibrillation Surgical History History of left heart catheterization (09/23/18) Social History Smoking Status: Former smoker ROS ROS ED ROS Narrative Past medical history: Reviewed Medications: Reviewed, she does not take any daily medications Social history: Noncontributory Review of systems: All systems negative except as indicated General: No fever Eyes: No visual changes ENT: No upper airway congestion, normal voice Neck: No neck pain Cardiovascular: No chest pain. She does feel palpitations Respiratory: No shortness of breath or cough Gastrointestinal: No abdominal pain, nausea vomiting or diarrhea Genitourinary: No dysuria Musculoskeletal: Denies myalgias no difficulty with ambulation Skin: No rash Neurological: No memory loss, confusion or any focal weakness Psych: No recent behavioral changes Hematologic: No easy bleeding or easy bruising EXAM Physical Exam Narrative Exam Narrative: Physical exam General: Well nourished, Well developed, No Acute Distress Head: Normocephalic, Atraumatic Eyes: Conjunctiva not pale ENT: Moist mucous membranes Neck: Supple, Nontender, No lymphadenopathy Cardiovascular: Irregular tachycardia, no obvious murmur. Respiratory: No distress, CTA bilaterally Abdomen: Soft, Nontender, Nondistended Back: Nontender, Normal Inspection. Negative for: CVA tenderness Extremities: Nontender, No edema Skin: Normal color, No rash Neurological: Alert, Normal Strength, Normal Sensation Psychological: Normal affect Const Vital Signs: 11/25/20 04:29 11/25/20 04:34 11/25/20 04:41 Temperature 98.3 F 97.3 F L Temperature Source Temporal Temporal Pulse Rate 158 H 148 H Respiratory Rate 13 16 Respiratory Effort Short of Breath Blood Pressure 113/93 H Blood Pressure Mean 99 Pulse Ox 99 99 Oxygen Delivery Method Room Air Room Air MDM MDM MDM Narrative Medical decision making narrative: Patient has an unremarkable work-up her heart rate did transiently improve with Cardizem however now it is back into the 130s I will start the patient on a Cardizem drip and rebolus her. I will admit her. Her chads 2 score is 0 therefore I will not anticoagulate her. Lab Data Labs: Laboratory Results - last 24 hr 11/25/20 11/25/20 04:36 04:36 WBC 6.9 RBC 4.60 Hgb 13.8 Hct 43.5 MCV 94.6 MCH 30.0 MCHC 31.7 L RDW Std Deviation 47.7 H RDW Coeff of Artie 13.8 Plt Count 270 MPV 9.3 Immature Gran % (Auto) 0.100 Neut % (Auto) 47.1 Lymph % (Auto) 35.4 Blount % (Auto) 13.1 H Eos % (Auto) 3.6 Baso % (Auto) 0.7 Absolute Neuts (auto) 3.2 Absolute Lymphs (auto) 2.43 Nucleated RBC % 0 Sodium 140 Potassium 4.0 Chloride 107 Carbon Dioxide 27.0 Anion Gap 6 BUN 17 Creatinine 0.83 Estim Creat Clear Calc 58.37 Est GFR (MDRD) Af Amer 88 Est GFR (MDRD) Non-Af 73 BUN/Creatinine Ratio 20.6 H Glucose 100 Calcium 8.9 Total Bilirubin 0.30 AST 28 ALT 32 Alkaline Phosphatase 64 Troponin I High Sens 14.2 Total Protein 7.5 Albumin 3.5 Globulin 4.0 Albumin/Globulin Ratio 0.9 EKG Initial EKG: Comments: Atrial fibrillation with a rate of 157. Normal QTc interval. No ischemic changes. Interpreted by emergency doctor Discharge Plan Triage Chief Complaint: Palpitations ED Provider: Yuriy Burns Dx/Rx/DC Orders Clinical Impression: Atrial fibrillation with RVR Prescriptions: No Action NK RF: 0 Primary Care Provider: Trisha Stacy Referrals: Trisha Stacy DO [Primary Care Provider] - Disposition Disposition: Acute Care Hospital [facility]
[2020-11-25] MEDS: dilTIAZem 25 MG/5 ML Vial 20 MG IV BOLUS (04:47)
[2020-11-25 04:55] LABS: Absolute Lymphocyte Count 2.43 X10^3/uL (0.83-4.51); Absolute Neutrophil Count 3.2 X10^3/uL (2.0-7.7); Basophil# 0.05 X10^3/uL; Basophil% 0.7 % (0-1); Eosinophil# 0.25 X10^3/uL; Eosinophils% 3.6 % (0-5); Hematocrit 43.5 % (37-47); Hemoglobin 13.8 g/dL (12.0-15.0); Lymphocyte # 2.43 X10^3/ul (0.83-4.51); Lymphocyte % 35.4 % (19-41); Mean Corp Hgb Conc 31.7 g/dL (32-36); Mean Corpuscular Volume 94.6 fL (81-99); Mean Platelet Vol. 9.3 fl (6.2-12.0); Monocyte% 13.1 % (0-10); NRBC Flagged by Analyzer 0 % (0-5); Neutrophil # 3.22 X10^3/uL (2.7-7.7); Neutrophil % 47.1 % (47-70); Platelet Count 270 K/mm3 (150-450); RBC Distribution Width CV 13.8 % (11.6-14.6); RBC Distribution Width SD 47.7 fl (35.1-43.9); White Blood Count 6.9 K/mm3 (4.4-11.0)
--- NOTE | 2020-11-25 05:03 | ED.RN ---
Solumedrol was ordered under the martinez patient and provider states the system wont let him cancel it. Entered as not given.
--- NOTE | 2020-11-25 05:07 | EKG12_ITS ---
Test Reason : BRADYCARDIA Blood Pressure : / mmHG Vent. Rate : 048 BPM Atrial Rate : 050 BPM P-R Int : 000 ms QRS Dur : 070 ms QT Int : 440 ms P-R-T Axes : 000 -01 020 degrees QTc Int : 393 ms Junctional tachycardia Abnormal ECG When compared with ECG of 25-NOV-2020 07:56, MANUAL COMPARISON REQUIRED, DATA IS UNCONFIRMED Confirmed by JEN DENNISON, GRACE ([id number]), research editor VICKY DE PAZ ([id number]) on 11/27/2020 8:58:43 AM Referred By: JEN Confirmed By:GRACE LI MD
[2020-11-25 05:10] LABS: ALB/GLOB Ratio 0.9 RATIO (0.9-2.4); AST(SGOT) 28 U/L (15-37); Alanine Aminotransfer ALT/SGPT 32 U/L (13-56); Albumin, Serum 3.5 g/dL (3.2-5.0); Alkaline Phosphatase 64 U/L (45-117); Anion Gap 6 (5-15); BUN 17 mg/dL (7-18); BUN/Creat Ratio 20.6 RATIO (10-20); Calcium,Total 8.9 mg/dL (8.5-10.1); Chloride 107 mmol/L (98-107); Creatinine, Serum 0.83 mg/dL (0.55-1.02); EST Glomerular Filtration Rate 73 mL/min (>60); Est Glom Filt Rate - Afr Amer 88 mL/min (>60); Estimated Creatinine Clearance 58.37 ml/min; Glucose 100 mg/dL (74-106); Protein, Total 7.5 g/dL (6.4-8.2); Sodium Level 140 mmol/L (136-145); Troponin-I HS 14.2 pg/mL (3.0-53.7)
--- NOTE | 2020-11-25 05:53 | HP.PCM.HOS_ITS ---
HPI - General General Date of Admission: 11/25/20 Date of Service: 11/25/20 Chief Complaint: chest pressure HPI Narrative MEAGAN GONZALEZ, is a 70 F who presents to the emergency department with chest pressure that radiated to her bilateral shoulders. Her symptoms started about an hour and a half prior to presentation. These symptoms were reminiscent of a previous of A. fib. With her symptoms she checked her heart rate and a heart rate was elevated. A CT of her symptoms is shortness of breath. Whiles at emergency department she developed chest fluttering. She reported that with her previous episode of A. fib she was put on Cardizem but because she developed short-term memory loss Cardizem was tapered off. She reported she will 30 days heart monitor which was unremarkable. She reports knee pain in her right knee. She had a knee replacement in August 2020 and occasionally has soreness and stiffness in the knee. She takes ibuprofen for the knee pain. [facility] Medical History Atrial fibrillation with RVR HLD (hyperlipidemia) Hypersomnia Osteoarthritis Snoring Ventricular tachycardia Home Medications NK 11/25/20 [History Last Taken Unknown] Allergy/AdvReac Type Severity Reaction Status Date / Time No Known Allergies Allergy Verified 05/09/19 08:30 Family History Mother Atrial fibrillation Surgical History History of left heart catheterization (09/23/18) Social History Smoking Status: Former smoker ROS ROS Narrative 12 point review of system is negative except as stated in HPI. Vital Signs Vital Signs Vital Signs: 11/25/20 04:29 11/25/20 04:34 11/25/20 04:41 Temperature 98.3 F 97.3 F L Temperature Source Temporal Temporal Pulse Rate 158 H 148 H Respiratory Rate 13 16 Respiratory Effort Short of Breath Blood Pressure 113/93 H Blood Pressure Mean 99 Pulse Ox 99 99 Oxygen Delivery Method Room Air Room Air Weight Weight: 76.5 kg Body Mass Index (BMI) 28.0 Physical Exam Narrative Physical exam: General: Well-nourished, well-developed, no acute distress Head: Normocephalic, atraumatic, no tenderness Eyes: PERRLA, EOMI ENT, no trauma, moist mucous membranes, no rhinorrhea Neck: Nontender, full range of motion, no spinal tenderness, deformities, step- off CVS: Tachycardia irregularly irregular rate and rhythm. No murmur gallop or rubs. Respiratory no acute distress, clear to auscultation bilaterally, chest wall nontender, no wheezing Abdomen: Soft, nontender, nondistended, normal bowel sounds, no masses : Deferred Extremities: Right knee with mild warmth and closely healed surgical incision. Left knee unremarkable. No edema of bilateral lower extremities; no tenderness. Skin: Normal color, no trauma, abrasions Neuro: Alert, oriented, cranial nerves II through XII grossly intact. Results Lab / Micro Data Result Diagrams: 11/25/20 04:36 11/25/20 04:36 Labs: Laboratory Results - last 24 hr 11/25/20 11/25/20 04:36 04:36 WBC 6.9 RBC 4.60 Hgb 13.8 Hct 43.5 MCV 94.6 MCH 30.0 MCHC 31.7 L RDW Std Deviation 47.7 H RDW Coeff of Artie 13.8 Plt Count 270 MPV 9.3 Immature Gran % (Auto) 0.100 Neut % (Auto) 47.1 Lymph % (Auto) 35.4 [place] % (Auto) 13.1 H Eos % (Auto) 3.6 Baso % (Auto) 0.7 Absolute Neuts (auto) 3.2 Absolute Lymphs (auto) 2.43 Nucleated RBC % 0 Sodium 140 Potassium 4.0 Chloride 107 Carbon Dioxide 27.0 Anion Gap 6 BUN 17 Creatinine 0.83 Estim Creat Clear Calc 58.37 Est GFR (MDRD) Af Amer 88 Est GFR (MDRD) Non-Af 73 BUN/Creatinine Ratio 20.6 H Glucose 100 Calcium 8.9 Total Bilirubin 0.30 AST 28 ALT 32 Alkaline Phosphatase 64 Troponin I High Sens 14.2 Total Protein 7.5 Albumin 3.5 Globulin 4.0 Albumin/Globulin Ratio 0.9 Assessment & Plan Assessment/Plan (1) Atrial fibrillation with RVR: PLAN: A. fib with RVR Review of telemetry shows patient in A. fib with RVR. Placed on PCU on telemetry Obtain echo [id number] Score. Discussed emergent department doctor gave therapy dose of Lovenox. Consider further anticoagulation. Started on Cardizem drip at the imaging department and continued. Review of em ergency department labs showed potassium of 4. Check magnesium. Check TSH. DVT prophylaxis: Not indicated since patient has been treated with dose of Lovenox. Charges/Coding Visit Charges OBSV E&M: 76925 Initial observation care L2
[2020-11-25] MEDS: dilTIAZem 25 MG/5 ML Vial 10 MG IV BOLUS (05:54)
[2020-11-25 06:50] LABS: Magnesium 2.1 mg/dL (1.6-2.6)
[2020-11-25] MEDS: Enoxaparin 80 MG/0.8 ML Syringe SC ×2 (07:00→18:33)
--- NOTE | 2020-11-25 07:52 | EKG12_ITS ---
Test Reason : ARRYTH Blood Pressure : / mmHG Vent. Rate : 060 BPM Atrial Rate : 060 BPM P-R Int : 150 ms QRS Dur : 070 ms QT Int : 426 ms P-R-T Axes : 064 -01 025 degrees QTc Int : 426 ms Normal sinus rhythm with sinus arrhythmia Normal ECG When compared with ECG of 25-NOV-2020 16:02, MANUAL COMPARISON REQUIRED, DATA IS UNCONFIRMED Confirmed by EJN DENNISON, GRACE ([id number]), photographic editor VICKY DE PAZ ([id number]) on 11/27/2020 8:49:07 AM Referred By: SIMEON DSOUZA Confirmed By:GRACE LI MD
[2020-11-25 08:24] LABS: Thyroid Stim Hormone (TSH) 1.51 uIU/mL (0.358-3.74)
[2020-11-25 08:34] LABS: Troponin-I HS 45.5 pg/mL (3.0-53.7)
--- NOTE | 2020-11-25 10:58 | CON.PCM.CA_ITS ---
Assessment & Plan Assessment/Plan (1) Atrial fibrillation with RVR: PLAN: Patient presents with recurrent atrial fibrillation with a rapid ventricular response rate. She is currently on intravenous diltiazem. Her rate appears to be slower. She is tolerating this well at this time. She is also been administered Lovenox for anticoagulation. * Had a long discussion for over 20 minutes talking about the pathophysiology of atrial fibrillation as well as the implication of the chads vas score. The nurse was also in and asked whether aspirin would suffice. I did decide to them the studies based on guideline directed medical therapy as well as the standard of care that with a chads vas score of 2 she needed to be on anticoagulation for appropriate risk reduction. It was however entirely up to her as to what she wanted to do long-term. She had cited studies using natural agents out of [facility]. I did suggest to her that the I was not aware of the above studies and for now had not made it into guideline directed medical therapy. We will for now the focus would be on rate control as we are doing as well as anticoagulation with Lovenox. * She had a recent cardiac catheterization within the last 2 years I do not think there is a reason to pursue this or an echocardiogram necessarily. * At the end of the discussion she expressed understanding of the pathophysiology, guideline directed treatment, and prognosis and implications of no therapy. HPI Consult Data Date of Consult: 11/25/20 HPI Narrative HPI Narrative: MEAGAN GONZALEZ, is a 70 F who presents to the emergency room complaining of palpitations and chest pain radiating to between her shoulder blades. She said that she had an episode of atrial fibrillation about 2 years ago and underwent evaluation with a cardiac catheterization in 2019 which demonstrated no obstructive coronary disease. She also had an echocardiogram which demonstrated preserved ejection fraction. She was advised to go on medication but she was not inclined to do so. She thinks that she has had occasional palpitations but this has been the most sustained episode. In the emergency room she was noted to be in atrial fibrillation with rapid ventricular response rate she was treated with intravenous diltiazem and Lovenox and admitted to the progressive care unit cardiology was called for further evaluation and management. The patient is very hesitant about taking medications including anticoagulation. She prefers to be on natural' agents. She has had no dizziness or diaphoresis no near syncope or syncope. She also says that she did undergo a cardiac catheterization over 10 years ago which demonstrated no significant obstructive disease. At this particular time she appears to be stable without any symptoms. [facility] Medical History Atrial fibrillation with RVR HLD (hyperlipidemia) Hypersomnia Osteoarthritis Snoring Ventricular tachycardia Home Medications ibuprofen [Advil] 200 mg PO Q6H PRN 11/25/20 [History Last Taken Unknown] Allergy/AdvReac Type Severity Reaction Status Date / Time No Known Allergies Allergy Verified 05/09/19 08:30 Family History Mother Atrial fibrillation Surgical History History of left heart catheterization (09/23/18) Knee joint replacement status Social History Smoking Status: Former smoker ROS Constitutional Constitutional: Denies fever(s) or weight loss Eyes Eyes: Reports systems reviewed and no addt'l complaints, except as documented ENT HEENT: Reports systems reviewed and no addt'l complaints, except as documented Cardiovascular Cardiovascular: Reports chest pain, irregular heart rhythm, palpitations and other Respiratory/Chest Respiratory/Chest: Reports other Gastrointestinal Gastrointestinal: Denies change in bowel habits, nausea, vomiting or weight changes Genitourinary Genitourinary: Denies difficulty urinating Musculoskeletal Musculoskeletal: Denies joint stiffness or muscle weakness Integumentary Integumentary: Denies lesions Neurologic Neurologic: Denies dizziness or syncope Psychiatric Psychiatric: Denies anxiety Endocrine Endocrinology: Denies excessive sweating or fatigue Hematologic/Lymphatic Hematologic/Lymphatic: Denies anemia Allergic/Immunologic Allergic/Immunologic: Denies seasonal rhinorrhea Physical Exam Const oriented x3 and healthy appearing Orientation / Consciousness: awake HEENT normocephalic Eyes PERRL and conjunctivae normal Neck supple, no JVD and no carotid bruits Chest inspection of chest normal Resp normal respiratory effort and clear to auscultation bilaterally Cardio Palpation: normal PMI Rate: regular rate Rhythm: abnormal rhythm irregularly irregular Heart Sounds: S1 normal and S2 normal Peripheral Pulses: pulses 2+ throughout GI normal to inspection, nondistended, normoactive bowel sounds Extremity normal to inspection and no clubbing, cyanosis or edema Psych mental status grossly normal Objective Data Vital Signs: Vital Signs Temp Pulse Resp BP Pulse Ox 98.0 F 141 H 17 116/95 H 99 11/25/20 06:56 11/25/20 07:53 11/25/20 07:53 11/25/20 07:53 11/25/20 07:53 Oxygen Delivery Method Room Air Weight: 166 lb 7.184 oz Body Mass Index (BMI) 2.5 Intake & Output: Intake and Output for Last 24 Hours 11/23/20 11/24/20 11/25/20 23:59 23:59 23:59 Intake Total 14.58 / 14.58 Balance 14.58 / 14.58 Lab / Micro Data Result Diagrams: 11/25/20 04:36 11/25/20 04:36 Labs: Laboratory Results - last 24 hr 11/25/20 11/25/20 11/25/20 04:36 04:36 04:36 WBC 6.9 RBC 4.60 Hgb 13.8 Hct 43.5 MCV 94.6 MCH 30.0 MCHC 31.7 L RDW Std Deviation 47.7 H RDW Coeff of Artie 13.8 Plt Count 270 MPV 9.3 Immature Gran % (Auto) 0.100 Neut % (Auto) 47.1 Lymph % (Auto) 35.4 [place] % (Auto) 13.1 H Eos % (Auto) 3.6 Baso % (Auto) 0.7 Absolute Neuts (auto) 3.2 Absolute Lymphs (auto) 2.43 Nucleated RBC % 0 Sodium 140 Potassium 4.0 Chloride 107 Carbon Dioxide 27.0 Anion Gap 6 BUN 17 Creatinine 0.83 Estim Creat Clear Calc 58.37 Est GFR (MDRD) Af Amer 88 Est GFR (MDRD) Non-Af 73 BUN/Creatinine Ratio 20.6 H Glucose 100 Calcium 8.9 Magnesium 2.1 Total Bilirubin 0.30 AST 28 ALT 32 Alkaline Phosphatase 64 Troponin I High Sens 14.2 Total Protein 7.5 Albumin 3.5 Globulin 4.0 Albumin/Globulin Ratio 0.9 TSH 11/25/20 11/25/20 04:36 08:05 WBC RBC Hgb Hct MCV MCH MCHC RDW Std Deviation RDW Coeff of Artie Plt Count MPV Immature Gran % (Auto) Neut % (Auto) Lymph % (Auto) [place] % (Auto) Eos % (Auto) Baso % (Auto) Absolute Neuts (auto) Absolute Lymphs (auto) Nucleated RBC % Sodium Potassium Chloride Carbon Dioxide Anion Gap BUN Creatinine Estim Creat Clear Calc Est GFR (MDRD) Af Amer Est GFR (MDRD) Non-Af BUN/Creatinine Ratio Glucose Calcium Magnesium Total Bilirubin AST ALT Alkaline Phosphatase Troponin I High Sens 45.5 Total Protein Albumin Globulin Albumin/Globulin Ratio TSH 1.51 Micro: Microbiology 11/25/20 06:32 Nasal Secretion SARS-CoV-2 Antigen (Rapid) - Final Cardiology Labs/Tests 11/25/20 04:36: WBC 6.9, RBC 4.60, Hgb 13.8, Hct 43.5, MCV 94.6, MCH 30.0, MCHC 31.7 L, Plt Count 270, MPV 9.3, Immature Gran % (Auto) 0.100, Neut % (Auto) 47.1, Lymph % (Auto) 35.4, [place] % (Auto) 13.1 H, Eos % (Auto) 3.6, Baso % (Auto) 0.7, Absolute Neuts (auto) 3.2, Nucleated RBC % 0 11/25/20 04:36: Sodium 140, Potassium 4.0, Chloride 107, Carbon Dioxide 27.0, Anion Gap 6, BUN 17, Creatinine 0.83, Est GFR (MDRD) Af Amer 88, Est GFR (MDRD) Non-Af 73, BUN/Creatinine Ratio 20.6 H, Glucose 100, Calcium 8.9, Total Bilirubin 0.30 11/25/20 04:36: Magnesium 2.1 Rhythm: EKG: Atrial fibrillation with a rapid ventricular response rate. No acute changes noted. ECHO: Stress Test: Cardiac Cath: PCI: CT Surgery: Holter monitor: EPS: PPM: CXR: Chest CT Scan:
--- NOTE | 2020-11-25 11:52 | PCM.HOSP.N ---
Documented by User: Sim PANDA 11/25/20 11:56 Hospitalist Note Patient was admitted on 11/25/2020 with a chief complaint of A. fib with RVR and is currently being managed on diltiazem for rate control as well as Lovenox for anticoagulation. Cardiology is following patient would like to proceed with the above management. Patient is not on any rate controlling medication or anticoagulation at home, [id number] score is 2. Patient seen by Sim Burrows PA-C, under the supervision of Dr. Raygoza. Documented by User: Dr. Roc Raygoza DO 11/25/20 12:03 Hospitalist Note Patient still with A. fib with RVR with a very low rate in the 1 teens to 140s. Despite having had received 3 mg of diltiazem in the emergency room as well as put on a diltiazem drip. Prior to my seeing patient, patient's diltiazem drip was increased to 15 mg/h. Patient had had a history of atrial fibrillation in the past and had been on diltiazem but felt that it was affecting her judgment is to discontinue that. Patient is not a known history of atrial fibrillation since then. Physical exam: Heart rate tachycardic and irregular. Lungs are clear to auscultation bilateral. Extremities without clubbing or edema. Assessment 1. atrial fibrillation with RVR: Patient is currently on diltiazem drip with cardiology consultation. Chads vas score of 2. Patient has been initiated on anticoagulation with enoxaparin. Procedures Hospitalists Procedures: Other Procedure - See Report (non billable roudning)
--- NOTE | 2020-11-25 15:48 | EKG12_ITS ---
Test Reason : CP Blood Pressure : / mmHG Vent. Rate : 142 BPM Atrial Rate : 150 BPM P-R Int : 000 ms QRS Dur : 082 ms QT Int : 298 ms P-R-T Axes : 000 -01 -15 degrees QTc Int : 458 ms Atrial fibrillation Otherwise normal ECG When compared with ECG of 25-NOV-2020 04:36, MANUAL COMPARISON REQUIRED, DATA IS UNCONFIRMED Confirmed by JEN DENNISON, GRACE ([id number]), script editor VICKY DE PAZ ([id number]) on 11/27/2020 8:49:46 AM Referred By: SIMEON LANGE Confirmed By:GRACE LI MD
[2020-11-26] VITALS (7 sets, daily range): BP systolic 115–141; BP diastolic 55–62; PULSE 54–72; RESP 12–15; TEMP 36.6–37.7; O2SAT 96–97
[2020-11-26] MEDS: Enoxaparin 80 MG/0.8 ML Syringe SC (05:44)
[2020-11-26 06:38] LABS: Absolute Lymphocyte Count 2.23 X10^3/uL (0.83-4.51); Absolute Neutrophil Count 2.7 X10^3/uL (2.0-7.7); Basophil# 0.04 X10^3/uL; Basophil% 0.7 % (0-1); Eosinophil# 0.16 X10^3/uL; Eosinophils% 2.8 % (0-5); Hematocrit 40.7 % (37-47); Hemoglobin 12.9 g/dL (12.0-15.0); Lymphocyte # 2.23 X10^3/ul (0.83-4.51); Lymphocyte % 38.6 % (19-41); Mean Corp Hgb Conc 31.7 g/dL (32-36); Mean Corpuscular Hgb 30.1 pg (27.0-32.0); Mean Corpuscular Volume 95.1 fL (81-99); Mean Platelet Vol. 9.8 fl (6.2-12.0); Monocyte# 0.64 X10^3/uL; Monocyte% 11.1 % (0-10); NRBC Flagged by Analyzer 0 % (0-5); Neutrophil # 2.69 X10^3/uL (2.7-7.7); Neutrophil % 46.5 % (47-70); Platelet Count 250 K/mm3 (150-450); RBC Distribution Width CV 14.1 % (11.6-14.6); RBC Distribution Width SD 49.1 fl (35.1-43.9); Red Blood Count 4.28 M/mm3 (4.2-5.4); White Blood Count 5.8 K/mm3 (4.4-11.0)
[2020-11-26 07:06] LABS: Anion Gap 6 (5-15); BUN 14 mg/dL (7-18); Calcium,Total 8.8 mg/dL (8.5-10.1); Chloride 108 mmol/L (98-107); EST Glomerular Filtration Rate 88 mL/min (>60); Est Glom Filt Rate - Afr Amer 107 mL/min (>60); Estimated Creatinine Clearance 48.45 ml/min; Glucose 81 mg/dL (74-106); Potassium 4.7 mmol/L (3.5-5.1); Sodium Level 138 mmol/L (136-145)
--- NOTE | 2020-11-26 07:46 | PCM.DC.SUM ---
Providers Date of Admission: 11/25/20 Primary Care Physician: Dr. Trisha Stacy, Consultations 11/25/20 08:43 Consult: Cardiology Routine Consulting Provider: Aaron Ingram Reason for Consult: afib RVR EMERGENT Consult: No MD Notified: Yes Date Notified: 11/25/20 Time Notified: 08:43 Method of Notification: Verbal Reason For Visit: AFIB WITH RVR Diagnosis Discharge Diagnosis (1) Atrial fibrillation with RVR: Status: Acute Code(s): I48.91 - Unspecified atrial fibrillation Medications at Discharge Home Medications ibuprofen [Advil] 200 mg PO Q6H PRN 11/25/20 Hospital Course Operations None Procedures EKG Summary of Care Provided Minutes Spent on Discharge: 35 Hospital Course: Discharge Diagnoses: 1. Atrial fibrillation with RVR 2. Hyperlipidemia 3. Obesity 4. Osteoarthritis Discharge Summary: The patient is a 70 y/o F w/ PMHx: PAF not anticoagulated, HLD, Obesity, OA who presents to the [facility] ED on 11/25/20 w/ history of onset chest discomfort described as a pressure rating to bilateral shoulders starting about an hour and a half prior to ED presentation similar to prior episode of atrial fibrillation several years prior. In the ED EKG demonstrated atrial fibrillation with RVR. She was never anticoagulated but taking OTC supplements including fish oil which she notes assistance to some small degree with anticoagulation. Patient was admitted to the PCU, maintained on Cardizem with Cardizem drip and eventually spontaneously converted to sinus rhythm. Patient was transiently placed on therapeutic Lovenox but despite discussions with cardiology and hospitalist service declined usage of newer anticoagulant therapy or even consideration of Coumadin with preference to continue her OTC supplements. Magnesium level was normal. TSH level was normal. Patient noted resolution of prior chest discomfort following conversion to sinus rhythm. Discharge Time: > 35 Minutes DAY OF DISCHARGE PROGRESS NOTE: Subjective: Patient without acute event overnight per self and nursing report. Patient notes significant improvement since conversion to sinus rhythm. Discussed again possibility of newer anticoagulant therapy and patient declined with preference to continue OTC supplements. She notes that if she has recurrent event in the future she will reconsider. Patient denies fever, chills, nausea, emesis, abdominal pain, chest pain or dyspnea. Patient agreeable to discharge to home. Patient will be discharged with follow-up with primary care physician within 3-5 days in addition to plan to follow-up with her captain/airline pilot Dr. Ahuja who she saw 10 years prior per her request. Objective: T 97.9, heart rate 57, BP 128/68, respiratory rate 15, 96% on room air. Physical Examination: General: awake, alert, oriented x 3 and cooperative, seated upright in the bedside chair, no acute distress, notes feeling improved. Skin: normal color, turgor, no icterus, cyanosis. HEENT: AT/NC, EOMI, PERRLA, MMM. Lungs: CTA bilaterally, moderate effort, mild decrease BL bases, no rales, ronchi or wheezing; Heart: Mildly bradycardic with regular rhythm; no gallop, rub audible. Abdomen: soft, obese, NTTP, ND, normal BS. Extremities: no cyanosis, clubbing, or edema. Neurological: patient awake, alert, oriented as noted; cognitive function appears intact upon questioning,; pupils equally reactive to light and accomodation; cranial nerves II-XII grossly normal, moving all 4 extremities, strength appropriate. Psychiatric: affect appears normal, feeling improved given conversion to sinus rhythm, no acute evidence of depressive or anxiety feelings. Assessment and Plan: Please see hospital summary above. Weight / BMI Weight Weight: 166 lb 7.184 oz Body Mass Index (BMI) 2.5 ABG / Lab / Microbiology Data Result Diagrams: 11/26/20 05:43 11/26/20 05:43 Laboratory: Laboratory Results - last 24 hr 11/25/20 04:36: TSH 1.51 11/25/20 08:05: Troponin I High Sens 45.5 11/26/20 05:43: WBC 5.8, RBC 4.28, Hgb 12.9, Hct 40.7, MCV 95.1, MCH 30.1, MCHC 31.7 L, RDW Std Deviation 49.1 H, RDW Coeff of Artie 14.1, Plt Count 250, MPV 9.8, Immature Gran % (Auto) 0.300, Neut % (Auto) 46.5 L, Lymph % (Auto) 38.6, [place] % (Auto) 11.1 H, Eos % (Auto) 2.8, Baso % (Auto) 0.7, Absolute Neuts (auto) 2.7, Absolute Lymphs (auto) 2.23, Nucleated RBC % 0 11/26/20 05:43: Sodium 138, Potassium 4.7, Chloride 108 H, Carbon Dioxide 24.0, Anion Gap 6, BUN 14, Creatinine 0.70, Estim Creat Clear Calc 48.45, Est GFR (MDRD) Af Amer 107, Est GFR (MDRD) Non-Af 88, BUN/Creatinine Ratio 20.0, Glucose 81, Calcium 8.8 Microbiology: Microbiology 11/25/20 06:32 Nasal Secretion SARS-CoV-2 Antigen (Rapid) - Final Meaningful Use Info Meaningful Use Diagnoses (Choose all that apply): None applicable Discharge Plan Admission Admit Date/Time: 11/25/20 07:51 Primary Reason for Your Visit: Atrial Fibrillation with RVR Attending Provider: Amy Fierro Primary Care Provider: Trisha Stacy Consulting Providers: Aaron Ingram Instructions Patient Instructions: What Is Atrial Flutter/Atrial Fibrillation?, Understanding Atrial Fibrillation Discharge Orders/Prescriptions Prescriptions: Continued ibuprofen [Advil] 200 mg Tablet 200 mg PO Q6H PRN (Reason: Breakthrough Pain) RF: 0 Referrals / Follow Up: Trisha Stacy DO [Primary Care Provider] - (Please follow-up with PCP within 3-5 days to review admission.) Yuriy Ahuja MD [STAFF PHYSICIAN] - (Follow-up within the next 4-6 weeks to re-establish and follow-up from recent Atrial fibrillation RVR admission.) Disposition Disposition (needs filled in before D/C Order can be placed): Home, Self Care Charges/Coding Visit Charges Inpatient E&M: 77784 Disch Hosp
[2020-11-26 08:13] LABS: Cholesterol 225 mg/dL (200); High Density Lipoprotein 62 mg/dL; Triglycerides 113 mg/dL; Very Low Density Lipoprotein 23 mg/dL (5-40)
--- NOTE | 2020-11-26 09:11 | PHA.DC.MR ---
Pharmacy Service has performed discharge medication reconciliation for this patient. The patient's discharge medication list was reviewed for discrepancies and discrepancies were resolved. Home Medications ibuprofen [Advil] 200 mg PO Q6H PRN 11/25/20
--- NOTE | 2020-11-26 09:20 | CASEMGMT ---
JEREL CAMARA assessment: Face to Face with patient for initial transition planning/care coordination assessment. JEREL CAMARA introduced self and role at [facility], pt voices understanding and consents to assessment. Pt is sitting up in bed in no distress. Pt is A/Ox4 and answers all questions appropriately. Care providers, pharmacy, and demographics verified. Presentation: Pt thinks she is in afib which she had several years ago and took an old cardizem as well as ASA Admitting dx: Afib RVR PCP: Tawanna Specialists: Seymour, cardio Preferred Pharmacy: [facility] Insurance: [employer] A/B, [employer] Prescription Benefit: [facility] D-Silver Rx Living Will/HPOA: Pt states has LW/HPOA and is aware that they are on file at [facility]. Pt's , Cedric Nevarez, is HPOA. LNOK: Cedric Nevarez, ; Christian Piedra, brother Living Arrangements: Pt states lives with in 2 story home and states no concerns at home. Pt states they are planning to move to a ranch style home. Pt states is independent with ADL's. Transportation: Pt states drives self and states no transportation concerns. DME/HHC: Pt states has grab bars and 2 lift chairs. Pt states no need for any further DME. Pt states no hx of HHC or SNF in the past. Pt states no concerns with going home at time of discharge. 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 Pt states does not smoke cigarettes but does occasionally drink ETOH. Pt voices no further concerns/needs. CM to follow for any further discharge planning/needs. Advised pt to ask for CM if any further questions/concerns/needs arise, voices understanding. Pt Goal: Home Plan: [place] JEREL CAMARA
== END 2020-11-26 10:05 | disposition home or self-care (01) | DRG 310 ==
LOC: ED 05:41 → PCU 06:38
PROVIDERS: Admitting Provider Hospitalist; Emergency Provider Emergency Medicine; PCP Internal Medicine; Visit Provider Family Medicine
DX: I48.0 Paroxysmal atrial fibrillation (principal); Z87.891 Personal history of nicotine dependence; E78.5 Hyperlipidemia, unspecified; E66.9 Obesity, unspecified; Z68.28 Body mass index [BMI] 28.0-28.9, adult; Z96.651 Presence of right artificial knee joint
CPT/HCPCS: 36415; 80048; 80053; 80061; 83735; 84443; 84484; 85025; 87426; 93005; 97802; 99285; A4216

== ENCOUNTER 2021-07-10 05:52 | Inpatient (IN) | payer MEDICARE, OTHER, SELFPAY ==
[2021-07-10] VITALS (44 sets, daily range): BP systolic 93–157; BP diastolic 47–130; PULSE 49–164; RESP 9–27; TEMP 36.2–36.8; O2SAT 93–100; BMI 30.7; BMI 26.9
--- NOTE | 2021-07-10 05:58 | RAD_ITS ---
STUDY: X-RAY CHEST REASON FOR EXAM: Female, 71 years old. cp TECHNIQUE: AP COMPARISON: 09/22/2018 FINDINGS: The lungs are clear and expanded. There is no demonstrated pleural abnormality. Normal size heart. Normal mediastinum and batsheva. Normal visualized pulmonary arteries. There is atherosclerotic tortuosity of the aortic arch and descending thoracic aorta. Normal visualized thoracic spine. Normal visualized ribs, clavicles, and shoulders. There is no demonstrated abnormality of the visualized soft tissue structures of the upper abdomen. RAD/Chest 1 View (Portable) IMPRESSION: Negative x-ray examination of the chest. No interval change. Electronically Signed: Elder Franco MD at 7:09 EST ,
--- NOTE | 2021-07-10 05:58 | EKG12_ITS ---
Test Reason : DYSRHYTHMIA Blood Pressure : / mmHG Vent. Rate : 158 BPM Atrial Rate : 300 BPM P-R Int : 000 ms QRS Dur : 080 ms QT Int : 290 ms P-R-T Axes : 000 -04 053 degrees QTc Int : 470 ms Atrial fibrillation /Flutter Nonspecific ST abnormality Abnormal ECG Confirmed by NAYE DENNISON, GLADIS ([id number]), department editor VICKY DE PAZ ([id number]) on 07/12/2021 9:45:12 AM Referred By: [facility]I Confirmed By:GLADIS YANCEY MD
--- NOTE | 2021-07-10 06:02 | EX.ED.DYSGE1 ---
HPI History of Present Illness Chief Complaint: Palpitations Informant: patient Onset/Context/Timing Onset: Today Narrative Narrative: Patient presents secondary to palpitations and chest pressure. She has a history of paroxysmal A. fib. She states she felt well when she went to bed at 11 PM last evening. She woke at 230 this morning with her heart racing. Although she does not take it on a regular basis, she did take a p.o. Cardizem 240 mg at 230. When she did not notice improvement she presents to the emergency room at 6 AM. Patient was admitted last summer with A. fib RVR and required Cardizem drip. She did spontaneously convert to sinus rhythm. Patient is on a natural medicine that she states acts as a blood thinner. [facility] Medical History Atrial fibrillation with RVR HLD (hyperlipidemia) Hypersomnia Osteoarthritis Snoring Ventricular tachycardia Home Medications NK 07/10/21 [History Last Taken Unknown] Allergy/AdvReac Type Severity Reaction Status Date / Time No Known Allergies Allergy Verified 07/10/21 05:58 Family History Mother Atrial fibrillation Surgical History History of left heart catheterization (09/23/18) Knee joint replacement status Social History Smoking Status: Former smoker ROS ROS ED Constitutional Constitutional ED: Denies chills or fever(s) Eyes Eyes: Denies change in vision ENT ENT ED: Denies sore throat Cardiovascular Cardiovascular: Reports chest pain, palpitations and racing heartbeat Respiratory/Chest Respiratory/Chest: Denies cough or dyspnea Gastrointestinal Gastrointestinal: Denies abdominal pain, nausea or vomiting Genitourinary Genitourinary ED: Denies dysuria Musculoskeletal Musculoskeletal: Denies back pain Integumentary Denies rash Neurologic Neurologic: Denies headache(s) or weakness Allergic/Immunologic Allergic/Immunologic ED: Denies urticaria EXAM Physical Exam Const Vital Signs: 07/10/21 05:53 07/10/21 05:59 07/10/21 06:05 Temperature 97.2 F L Temperature Source Temporal Pulse Rate 164 H Respiratory Rate 18 Respiratory Effort Normal Respiratory Pattern Normal Blood Pressure 157/118 H 147/81 H Blood Pressure Mean 131 103 Pulse Ox 99 Oxygen Delivery Method Room Air 07/10/21 06:39 Temperature Temperature Source Pulse Rate 106 H Respiratory Rate 18 Respiratory Effort Respiratory Pattern Blood Pressure 98/68 Blood Pressure Mean 78 Pulse Ox 99 Oxygen Delivery Method Room Air Positive well nourished and well developed General Appearance ED: well developed HEENT Reports moist mucous membranes Eyes PERRL and EOMs intact bilaterally Neck supple Chest Wall inspection of chest normal and palpation of chest normal Resp normal respiratory effort and clear to auscultation bilaterally Cardio Rate: tachycardic Rhythm: abnormal rhythm irregularly irregular GI non-tender Palpation: soft Extremity normal to inspection Neuro oriented x3 Sensorium / Orientation: alert Psych mental status grossly normal Skin no rashes or lesions noted MDM MDM MDM Narrative Medical decision making narrative: EKG, chest x-ray, lab work obtained. Patient given aspirin. Patient given 10 mg of IV Cardizem. Lab Data Attestation: I reviewed the patient's lab results. Labs: Laboratory Results - last 24 hr 07/10/21 07/10/21 06:00 06:00 WBC 9.4 RBC 4.90 Hgb 15.3 H Hct 45.6 MCV 93.1 MCH 31.2 MCHC 33.6 RDW Std Deviation 45.1 H RDW Coeff of Artie 13.2 Plt Count 252 MPV 9.5 Immature Gran % (Auto) 0.200 Neut % (Auto) 69.8 Lymph % (Auto) 19.9 Gregory % (Auto) 9.1 Eos % (Auto) 0.6 Baso % (Auto) 0.4 Absolute Neuts (auto) 6.6 Absolute Lymphs (auto) 1.87 Nucleated RBC % 0 Sodium 136 Potassium 3.7 Chloride 105 Carbon Dioxide 26.0 Anion Gap 5 BUN 17 Creatinine 0.88 Estim Creat Clear Calc 54.29 Est GFR (MDRD) Af Amer 82 Est GFR (MDRD) Non-Af 68 BUN/Creatinine Ratio 19.3 Glucose 116 H Calcium 9.6 Troponin I High Sens 44 TSH 1.13 Radiography Chest X-Ray - ED: 1 View, Read by ED Physician, Normal, Heart, Lungs and Mediastinum Diagnostic Testing: Clinical Impression(s) from Imaging Studies Chest X-Ray 07/10/21 05:58 IMPRESSION: Negative x-ray examination of the chest. No interval change. Electronically Signed: Elder Franco MD at 7:09 EST , EKG Initial EKG: Attestation: I personally reviewed and interpreted this EKG as follows: Interpretation: Atrial Fibrillation (A. fib at 158. No acute ischemia.) Treatment and Re-Evaluation Comments:: After initial dose of Cardizem patient's heart rate came down into the 120s and 130s but would often rise again up into the 140s - 150s. Second dose of Cardizem was given. Heart rate did come down to 99 at one point but is currently back in the high 140s. Another 10 mg of Cardizem will be given and she will be started on a Cardizem drip. Test results were discussed with her. I will give her a dose of Lovenox. I spoke with Dr. Oneill and patient will be admitted to PCU. Discharge Plan Triage Chief Complaint: Palpitations ED Provider: Marilou Brewer Dx/Rx/DC Orders Clinical Impression: Atrial fibrillation with RVR Prescriptions: No Action NK RF: 0 Primary Care Provider: Trisha Stacy Referrals: Trisha tSacy DO [Primary Care Provider] - Disposition Disposition: Acute Care [facility]
[2021-07-10] MEDS: dilTIAZem 25 MG/5 ML Vial 10 MG IV BOLUS ×3 (06:03→07:39)
[2021-07-10] MEDS: Aspirin 81 MG TAB.CHEW 324 MG PO (06:07)
[2021-07-10 06:14] LABS: Absolute Lymphocyte Count 1.87 X10^3/uL (0.83-4.51); Absolute Neutrophil Count 6.6 X10^3/uL (2.0-7.7); Basophil# 0.04 X10^3/uL; Basophil% 0.4 % (0-1); Eosinophil# 0.06 X10^3/uL; Eosinophils% 0.6 % (0-5); Hematocrit 45.6 % (37-47); Hemoglobin 15.3 g/dL (12.0-15.0); Lymphocyte # 1.87 X10^3/ul (0.83-4.51); Lymphocyte % 19.9 % (19-41); Mean Corp Hgb Conc 33.6 g/dL (32-36); Mean Corpuscular Hgb 31.2 pg (27.0-32.0); Mean Corpuscular Volume 93.1 fL (81-99); Mean Platelet Vol. 9.5 fl (6.2-12.0); Monocyte# 0.86 X10^3/uL; Monocyte% 9.1 % (0-10); NRBC Flagged by Analyzer 0 % (0-5); Neutrophil # 6.56 X10^3/uL (2.7-7.7); Neutrophil % 69.8 % (47-70); Platelet Count 252 K/mm3 (150-450); RBC Distribution Width CV 13.2 % (11.6-14.6); RBC Distribution Width SD 45.1 fl (35.1-43.9); White Blood Count 9.4 K/mm3 (4.4-11.0)
[2021-07-10] MEDS: 0.9% Normal Saline 1,000 ML 150 ML IV ×4 (06:36→21:05)
[2021-07-10 06:43] LABS: Anion Gap 5 (5-15); BUN 17 mg/dL (7-18); BUN/Creat Ratio 19.3 RATIO (10-20); Calcium,Total 9.6 mg/dL (8.5-10.1); Chloride 105 mmol/L (98-107); Creatinine, Serum 0.88 mg/dL (0.55-1.02); EST Glomerular Filtration Rate 68 mL/min (>60); Est Glom Filt Rate - Afr Amer 82 mL/min (>60); Estimated Creatinine Clearance 54.29 ml/min; Glucose 116 mg/dL (74-106); Potassium 3.7 mmol/L (3.5-5.1); Sodium Level 136 mmol/L (136-145); Thyroid Stim Hormone (TSH) 1.13 uIU/mL (0.358-3.74); Troponin-I HS 44 pg/mL (3.0-54.0)
[2021-07-10] MEDS: Enoxaparin 80 MG/0.8 ML Syringe SC ×2 (07:39→17:20)
--- NOTE | 2021-07-10 10:14 | ECHOD_ITS ---
Reason For Study: Afib/Flutter Procedure This was a 2D Doppler, Color Flow transthoracic echocardiogram. The exam was of adequate technical quality. Exam performed portable in patient room. Left Ventricle Normal LV size. Left ventricular systolic function is normal. The estimated ejection fraction is 65 %. Unable to assess diastolic dysfunction. No regional wall motion abnormalities noted. Right Ventricle Normal RV size. Normal systolic function. Atria The left atrium is mildly enlarged. Normal right atrium. No doppler evidence for ASD. Mitral Valve There is no mitral annular calcification. Mild diffuse mitral valve thickening. Mild (1+) mitral valve insufficiency. Tricuspid Valve Normal tricuspid valve. Mild tricuspid valve insufficiency. Right ventricular systolic pressure estimated to be 23 mmHg. Aortic Valve Trisinus/trileaflet aortic valve. Mild diffuse aortic valve thickening. Pulmonic Valve The pulmonic valve is not well visualized. Great Vessels The aortic root is not well visualized. Pericardium/Pleural No pericardial effusion. MMode/2D Measurements & Calculations LVIDd: 3.7 cm IVSd: 1.1 cm LA dimension: 4.3 cm LVIDs: 2.6 cm LVPWd: 1.00 cm RVDd: 3.4 cm FS: 29.9 % LAV(MOD-bp): 58.6 ml LA A4 area: 19.4 cm2 RA A4 area: 13.3 cm2 LAV(MOD-bp) Indexed: 32.5 ml/m2 LAV(MOD-sp2): 64.0 ml LAV(MOD-sp4): 53.9 ml Doppler Measurements & Calculations MV E max jimbo: 90.5 cm/sec PA V2 max: 61.1 cm/sec TR max jimbo: 221.5 cm/sec TR max P.6 mmHg ECHO/Echo Complete Interpretation Summary Left ventricular systolic function is normal. The estimated ejection fraction is 65 %. The left atrium is mildly enlarged. Mild diffuse mitral valve thickening. Mild (1+) mitral valve insufficiency. Mild tricuspid valve insufficiency. Mild diffuse aortic valve thickening. Right ventricular systolic pressure estimated to be 23 mmHg. Unable to assess diastolic dysfunction. Ordering Physician: Nikki Oneill Referring Physician: Trisha Stacy M.D. Performed By: Manjit Pearl RCS
[2021-07-10 11:11] LABS: Troponin-I HS 114 pg/mL (3.0-54.0)
--- NOTE | 2021-07-10 12:07 | HP.PCM.HOS_ITS ---
HPI - General General Date of Admission: 07/10/21 HPI Narrative MEAGAN GONZALEZ, is a 71 F with a PMH as outlined who presents via the ED on 07/10/2021 with a complaint of chest pain and shortness of breath as well as palpitations which woke her up in the middle of the night. She says the chest pain radiated to her back and her left arm. She has a history of A. fib and states she is not been taking her Cardizem because it gave her short-term memory loss. As such, with her having palpitations, she figured this was A. fib and so she came into the ED. She admitted to some lightheadedness and dizziness but denied any nausea vomiting or any other symptoms. Patient says she was diagnosed with A. fib about a year ago but has not been taking her Cardizem as mentioned above. She was also put on blood thinners but these she had not been taking that and had been taking a natural supplement which according to her research that she conducted, was noted to be a very effective blood thinner according to an article she read from [employer]. Review of systems was otherwise negative. Vitals in the ED were temperature of 98.1 Fahrenheit with pulse rate of 114 going up into the 140s and 150s, blood pressure of 131/111 and 15. She was saturating at 98% on room air. EKG showed A. fib with RVR. CBC and BMP were unremarkable and TSH was 1.13. She has been admitted to be managed for A. fib with RVR. [facility] Medical History Atrial fibrillation with RVR HLD (hyperlipidemia) Hypersomnia Osteoarthritis Snoring Ventricular tachycardia Home Medications calcium 1,200 mg PO 07/10/21 [History Last Taken Unknown] cholecalciferol (vitamin D3) [Vitamin D3] PO DAILY 07/10/21 [History Last Taken Unknown] hawthorn BID 07/10/21 [History Last Taken Unknown] omega [id number]-fish oil [Fish Oil] cap PO DAILY 07/10/21 [History Last Taken Unknown] rutin 07/10/21 [History Last Taken Unknown] Allergy/AdvReac Type Severity Reaction Status Date / Time No Known Allergies Allergy Verified 07/10/21 05:58 Family History Mother Atrial fibrillation Surgical History History of left heart catheterization (09/23/18) Knee joint replacement status Social History (Updated 07/10/21 @ 08:57 by Evi Perez) household members: spouse housing: house Smoking Status: Former smoker substance use type: does not use ROS Constitutional Constitutional: Denies anorexia, chills, fever(s), malaise or weakness Eyes Eyes: Denies change in vision ENT HEENT: Denies dysphagia, headache(s), nasal congestion or nasal discharge Cardiovascular Cardiovascular: Reports chest pain, dyspnea on exertion, lightheadedness, palpit ations and rapid heart rate; Denies orthopnea, paroxysmal nocturnal dyspnea or syncope Respiratory/Chest Respiratory/Chest: Reports dyspnea and shortness of breath at rest; Denies cough, productive cough, shortness of breath with exertion or wheezing Gastrointestinal Gastrointestinal: Denies abdominal pain, constipation, diarrhea, dyspepsia, nausea or vomiting Genitourinary Genitourinary: Denies burning urination Musculoskeletal Musculoskeletal: Denies arthralgias or joint swelling Neurologic Neurologic: Denies confusion, focal weakness, headache(s), numbness or paresthesias Psychiatric Psychiatric: Denies anxiety or depression Endocrine Endocrinology: Denies change in body appearance Hematologic/Lymphatic Hematologic/Lymphatic: Denies anemia Allergic/Immunologic Allergic/Immunologic: Reports asthma Vital Signs Vital Signs Vital Signs: 07/10/21 05:53 07/10/21 05:59 07/10/21 06:05 Temperature 97.2 F L Temperature Source Temporal Pulse Rate 164 H Pulse Strength Respiratory Rate 18 Respiratory Effort Normal Respiratory Depth Respiratory Pattern Normal Blood Pressure 157/118 H 147/81 H Blood Pressure Mean 131 103 Blood Pressure Source Blood Pressure Position Blood Pressure Location Pulse Ox 99 Oxygen Delivery Method Room Air 07/10/21 06:39 07/10/21 07:45 07/10/21 08:35 Temperature 98.1 F Temperature Source Oral Pulse Rate 106 H 133 H 138 H Pulse Strength Respiratory Rate 18 16 Respiratory Effort Respiratory Depth Respiratory Pattern Blood Pressure 98/68 123/102 H 123/81 H Blood Pressure Mean 78 109 95 Blood Pressure Source Monitor Blood Pressure Position Semi-Fowlers Blood Pressure Location Left Arm Pulse Ox 99 100 Oxygen Delivery Method Room Air Room Air 07/10/21 08:40 07/10/21 08:43 07/10/21 08:45 Temperature Temperature Source Pulse Rate 143 H 137 H Pulse Strength Respiratory Rate 13 Respiratory Effort Normal Non-Labored Respiratory Depth Normal Respiratory Pattern Normal Blood Pressure 112/69 Blood Pressure Mean 83 Blood Pressure Source Monitor Blood Pressure Position Semi-Fowlers Blood Pressure Location Left Arm Pulse Ox 99 Oxygen Delivery Method Room Air Room Air 07/10/21 09:00 07/10/21 09:15 07/10/21 09:30 Temperature Temperature Source Pulse Rate 141 H 140 H 145 H Pulse Strength Respiratory Rate 17 11 L 9 L Respiratory Effort Respiratory Depth Respiratory Pattern Blood Pressure 129/73 H 148/130 H 118/64 Blood Pressure Mean 91 136 82 Blood Pressure Source Monitor Monitor Blood Pressure Position Semi-Fowlers Semi-Fowlers Semi-Fowlers Blood Pressure Location Left Arm Left Arm Left Arm Pulse Ox 98 99 99 Oxygen Delivery Method Room Air Room Air Room Air 07/10/21 09:45 07/10/21 09:53 07/10/21 10:00 Temperature Temperature Source Pulse Rate 152 H 133 H Pulse Strength Normal (2+) Respiratory Rate 17 21 H Respiratory Effort Respiratory Depth Respiratory Pattern Blood Pressure 123/89 H Blood Pressure Mean 100 Blood Pressure Source Monitor Blood Pressure Position Semi-Fowlers Blood Pressure Location Left Arm Pulse Ox 99 98 Oxygen Delivery Method Room Air Room Air 07/10/21 10:15 07/10/21 10:30 07/10/21 10:45 Temperature 98.1 F Temperature Source Oral Pulse Rate 121 H 102 H 118 H Pulse Strength Respiratory Rate 12 13 11 L Respiratory Effort Respiratory Depth Respiratory Pattern Blood Pressure 114/84 H 109/92 H 115/92 H Blood Pressure Mean 94 97 99 Blood Pressure Source Monitor Monitor Monitor Blood Pressure Position Semi-Fowlers Semi-Fowlers Semi-Fowlers Blood Pressure Location Left Arm Left Arm Left Arm Pulse Ox 98 99 98 Oxygen Delivery Method Room Air Room Air Room Air 07/10/21 11:00 Temperature Temperature Source Pulse Rate 105 H Pulse Strength Respiratory Rate 15 Respiratory Effort Respiratory Depth Respiratory Pattern Blood Pressure 131/111 H Blood Pressure Mean 117 Blood Pressure Source Monitor Blood Pressure Position Semi-Fowlers Blood Pressure Location Left Arm Pulse Ox 98 Oxygen Delivery Method Room Air Weight Weight: 161 lb 13.109 oz Body Mass Index (BMI) 26.9 Physical Exam Const alert and oriented x3 General Appearance: cooperative HEENT normocephalic, head/scalp atraumatic, moist oral mucous membranes and oropharynx normal Eyes PERRL, EOMs intact bilaterally and conjunctivae normal Neck no lymphadenopathy, supple and no JVD Resp normal respiratory effort and clear to auscultation bilaterally Cardio S1 normal heart sound, S2 normal heart sound and no murmurs Cardio Narrative: afib with RVR GI normal to inspection, nondistended, normoactive bowel sounds, soft to palpation, non-tender and non-distended Extremity normal to inspection, full ROM and no clubbing, cyanosis or edema Peripheral Pulses: Yes pulses 2+ throughout Skin no rashes or lesions noted Neuro oriented x3, CN's II-XII intact bilaterally and moves all extremities Sensorium / Orientation: awake and alert Psych affect normal Results Lab / Micro Data Result Diagrams: 07/10/21 06:00 07/10/21 06:00 Labs: Laboratory Results - last 24 hr 07/10/21 06:00: WBC 9.4, RBC 4.90, Hgb 15.3 H, Hct 45.6, MCV 93.1, MCH 31.2, MCHC 33.6, RDW Std Deviation 45.1 H, RDW Coeff of Artie 13.2, Plt Count 252, MPV 9.5, Immature Gran % (Auto) 0.200, Neut % (Auto) 69.8, Lymph % (Auto) 19.9, [place] % (Auto) 9.1, Eos % (Auto) 0.6, Baso % (Auto) 0.4, Absolute Neuts (auto) 6.6, Absolute Lymphs (auto) 1.87, Nucleated RBC % 0 07/10/21 06:00: Sodium 136, Potassium 3.7, Chloride 105, Carbon Dioxide 26.0, Anion Gap 5, BUN 17, Creatinine 0.88, Estim Creat Clear Calc 54.29, Est GFR (MDRD) Af Amer 82, Est GFR (MDRD) Non-Af 68, BUN/Creatinine Ratio 19.3, Glucose 116 H, Calcium 9.6, Troponin I High Sens 44, TSH 1.13 07/10/21 10:34: Troponin I High Sens 114 H Radiology Impression Chest X-Ray 07/10/21 05:58 IMPRESSION: Negative x-ray examination of the chest. No interval change. Electronically Signed: Elder Franco MD at 7:09 EST , Assessment & Plan Assessment/Plan (1) Atrial fibrillation with RVR: PLAN: #Afib with RVR * Admit to PCU with telemetry * Started on Cardizem drip in the ED. We will continue. * Order 2D echo. Cycle troponins. * Cardiology consulted. * Initial troponin was 44. Subsequently trended up to 130. * TSH within normal limits and potassium is also within normal limits. * give therapeutic lovenox * * #Non-STEMI * Initial troponin was 44 but trended up to a peak of 130. * This could be due to troponin leak from the A. fib with RVR. She did have some chest pain she says when his symptoms started but not having any chest pain now. * Put on p.o. aspirin. Sublingual nitroglycerin as needed. Will give high intensity statin. * Already on therapeutic Lovenox. * #Hyperlipidemia: * Patient has been taking natural supplements for this. * Will check lipid panel. * Start on atorvastatin 40 mg on account of non-STEMI as well * #DVT prophylaxis: not indicated as she is on therapeutic lovenox CODE STATUS: Full code * Patient counseled extensively about different types of CODE STATUS including full code, DNR CCA and DNR CCA. Patient elects to be full code. * Total [id number] time 18 minutes. Charges/Coding Visit Charges Inpatient E&M: 40727 Init Hosp L3 Procedures Hospitalists Procedures: 42705 Advncd Care Plan 30 Min
[2021-07-10 12:12] LABS: Troponin-I HS 130 pg/mL (3.0-54.0)
--- NOTE | 2021-07-10 12:15 | CASEMGMT ---
JEREL CAMARA assessment: Face to Face with patient for initial transition planning/care coordination assessment. JEREL CAMARA introduced self and role at [facility], pt voices understanding and consents to assessment. Pt is sitting up in bed in no distress on room air. Pt is A/Ox4 and answers all questions appropriately. Care providers, pharmacy, and demographics verified. Presentation: Pt states she is in Afib-hx same-last episode in November-pt also states pressure in chest Admitting dx: Afib RVR PCP: Tawanna Specialists: [facility] Preferred Pharmacy: [facility] Insurance: MCR A/B, [place] Prescription Benefit: [employer] Living Will/HPOA: Pt has LW/HPOA and is aware that they are on file at [facility]. Pt's , Cedric Nevarez, is HPOA. LNOK: Cedric Nevarez, /HPOA; Christian Piedra, brother Living Arrangements: Pt lives with in split level home and states no concerns at home. Pt is independent with ADL's. Transportation: Pt drives self and states no transportation concerns. DME/HHC: Pt has a cane and walker at home and states no need for any further DME. Pt states no hx of HHC or SNF, but has had OP therapy thru [facility] in past. Pt states no concerns with going home at time of discharge. Pt is retired. Pt states does not smoke cigarettes but does have about one drink/week. Pt voices no further concerns/needs. CM to follow for anti-coag and any further discharge planning/needs. Advised pt to ask for CM if any further questions/concerns/needs arise, voices understanding. Pt Goal: Home Plan: [place] JEREL CAMARA
[2021-07-10 12:52] LABS: Cholesterol 228 mg/dL (200); High Density Lipoprotein 75 mg/dL; Triglycerides 99 mg/dL; Very Low Density Lipoprotein 20 mg/dL (5-40)
[2021-07-10 13:00] LABS: Hemoglobin A1c 5.4 % (3.8-5.6)
--- NOTE | 2021-07-10 13:56 | NURSING ---
Pt requesting to hold off on lipitor until she speaks with security agent. Education provided, pt verbalized understanding.
--- NOTE | 2021-07-10 18:12 | CON.PCM.CA_ITS ---
Assessment & Plan Assessment/Plan (1) Atrial fibrillation with RVR: PLAN: The patient has a history of paroxysmal atrial fibrillation with RVR. Based upon her cardiac rhythm strips to stay it appears she has had episodes compatible with atrial fibrillation/flutter with RVR. She has been treated medically with rate control therapy. However she continues with her atrial dysrhythmia. She has also been placed on IV anticoagulant therapy with IV heparin. At the present time she will continue rate control therapy. An attempt will be made to add additional antiarrhythmic therapy with IV amiodarone in an attempt t o hopefully regain sinus rhythm. She will continue anticoagulant therapy as deemed appropriate. (2) Ventricular tachycardia: PLAN: She has a history of underlying cardiac ectopy/ventricular tachycardia. At the moment she has had no obvious recurrent wide-complex dysrhythmias. She has undergone noninvasive and invasive valuation in the past. She will continue to be monitored. (3) Abnormal cardiac enzyme level: PLAN: He does have abnormal cardiac enzyme levels. Technically this is compatible with a non-ST segment elevation ND. It is unclear as to whether this is related to progression of her CAD process versus a type II event brought out by her atrial dysrhythmia/tachycardia. At the moment she is being monitored. She is continuing medical therapy for her conditions noted above. She has undergone noninvasive valuation with transthoracic echocardiogram as noted. However, based upon her symptoms and her objective findings there is concern of progression of her CAD process contributing to her clinical course. Thus it would be reasonable to consider repeat evaluation in the cardiac catheterization laboratory. The procedure and risk were discussed with her and she was agreeable to this. (4) HLD (hyperlipidemia): QUALIFIERS: Hyperlipidemia type: unspecified Qualified Code(s): E78.5 - Hyperlipidemia, unspecified PLAN: The patient also has a history of hyperlipidemia which she has tried to treat with oyvr-weh-mcybjum supplements. However, she states she will take into consideration, in order to assist in controlling her cardiovascular risk factors, prescription medical therapy. Addt'l Comments This note was generated using a voice recognition system and there may be incorrect words, spelling or punctuation that were not noted when reviewing the office note prior to saving. HPI Consult Data Date of Consult: 07/10/21 HPI Narrative HPI Narrative: MEAGAN GONZALEZ, is a 71 year old white female who presents for cardiovascular consultation based upon concerns of underlying atrial fibrillation/flutter with RVR with subsequent notation of elevation of cardiac enzymes/troponin I levels superimposed upon a history of ventricular tachycardia and hyperlipidemia. Her last outpatient cardiovascular visit appears to been on 10-18-2018 with Abiel Treadwell MD. At that time she was being followed for history of atrial fibrillation with RVR with notation of PACs/PVCs and hyperlipidemia. She states that last summer she had an atrial fibrillation event for which she was evaluated at [facility] emergency department. She was treated with IV diltiazem. She preferred to avoid anticoagulant therapy as opposed to rzeo-fet-jrvrdsj supplements. She was subsequently noted to have spontaneous conversion of her cardiac dysrhythmia to sinus rhythm. She was eventually released home for continued outpatient follow-up. However, she has not been in the office since that time. She states with her episode, which occurred earlier this morning, she noted the rapid racing heart rate. She also described associated chest discomfort. She may have been somewhat short of breath. She denied ongoing nausea, emesis, or diaphoresis. There was no report of loss of consciousness. She presented back to the emergency department for evaluation. She was found to be in atrial fibrillation/flutter with rapid ventricular response. She had an initial troponin I level being reported at normal 44 but has subsequently increased to 130. Her ECG demonstrated the appearance of atrial fibrillation/flutter with rapid ventricular response with nonspecific ST segment abnormality. She has subsequently undergone additional evaluation with a transthoracic echo cardiogram. The results are noted below. In the past she has undergone evaluation with both stress echocardiogram and diagnostic cardiac catheterization. Again the results are noted below. She states she has been trying to treat her cardiovascular risk factors and diagnosis at home with oxhp-ntp-nesfsts supplements. 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 She was placed on IV diltiazem and subsequently transferred to the PCU for [facility] evaluation and care. Since being on IV diltiazem she has had episodes of slowing of her ventricular rate but has still remained in her atrial fibrillation/flutter. [facility] Medical History (Updated 07/10/21 @ 18:[address] Yuriy Ahuja MD) Abnormal cardiac enzyme level Atrial fibrillation with RVR HLD (hyperlipidemia) Hypersomnia Osteoarthritis Snoring Ventricular tachycardia Home Medications calcium 1,200 mg PO 07/10/21 [History Last Taken Unknown] cholecalciferol (vitamin D3) [Vitamin D3] PO DAILY 07/10/21 [History Last Taken Unknown] hawthorn BID 07/10/21 [History Last Taken Unknown] omega 5-kdl-usr-fish oil [Fish Oil] cap PO DAILY 07/10/21 [History Last Taken Unknown] rutin 07/10/21 [History Last Taken Unknown] Allergy/AdvReac Type Severity Reaction Status Date / Time No Known Allergies Allergy Verified 07/10/21 05:58 Family History Mother Atrial fibrillation Surgical History History of left heart catheterization (09/23/18) Knee joint replacement status Social History (Updated 07/10/21 @ 08:57 by Evi Perez) household members: spouse housing: house Smoking Status: Former smoker substance use type: does not use ROS Constitutional Constitutional: Reports as per HPI Eyes Eyes: Reports as per HPI ENT HEENT: Reports as per HPI Cardiovascular Cardiovascular: Reports chest pain, dyspnea and palpitations Respiratory/Chest Respiratory/Chest: Reports dyspnea Gastrointestinal Gastrointestinal: Reports as per HPI Genitourinary Genitourinary: Reports as per HPI Musculoskeletal Musculoskeletal: Reports as per HPI Integumentary Integumentary: Reports as per HPI Neurologic Neurologic: Reports as per HPI Psychiatric Psychiatric: Reports as per HPI Physical Exam Const alert, oriented x3 and no apparent distress Orientation / Consciousness: awake HEENT normocephalic, head/scalp atraumatic and hearing grossly normal bilaterally Eyes PERRL, EOMs intact bilaterally and conjunctivae normal Neck full ROM, supple and no JVD Resp clear to auscultation bilaterally Cardio Rate: tachycardic Rhythm: abnormal rhythm irregularly irregular Heart Sounds: S1 normal and S2 normal GI normal to inspection, nondistended, normoactive bowel sounds Extremity no pedal edema Skin no rashes or lesions noted Neuro oriented x3, moves all extremities, no focal motor deficits and no sensory deficits noted Psych mental status grossly normal Risk Stratification Risk Stratification Applicable: Yes Age >/= 65: Yes >/= 3 CAD Risk Factors (HTN, HLD, DM, family hx of CAD, or current smoker): No Aspirin Use in the Past 7 Days: No Severe Angina (>/= episodes in 24 hours): Yes EKG ST Changes >/= 0.5mm: No Positive Cardiac Marker: Yes MARQUEZ Risk Stratification Score: 3 MARQUEZ % Risk: 13% Risk Procedure Criteria Type of Procedure Procedure Type: Elective Elective Risks - COVID COVID Risk Discussion: The surgeon/proceduralist and patient have discussed in detail the risk of exposure to and/or potential harm posed by the COVID-19 virus with having a surgery/procedure at this time versus the risk of delaying the surgery/procedure. It is not possible to know either the risk of delaying the surgery or procedure or chance of getting an infection with perfect accuracy, but a joint decision was made between the patient and the surgeon/proceduralist to proceed at this time with the scheduled surgery/procedure as indicated on the consent form. Objective Data Vital Signs: Vital Signs Temp Pulse Resp BP Pulse Ox 98.2 F 103 H 17 136/122 H 98 07/10/21 16:15 07/10/21 17:20 07/10/21 17:00 07/10/21 17:00 07/10/21 17:00 Oxygen Delivery Method Room Air Weight: 161 lb 13.109 oz Body Mass Index (BMI) 26.9 Intake & Output: Intake and Output for Last 24 Hours 07/08/21 07/09/21 07/10/21 23:59 23:59 23:59 Intake Total 1584.92 / 1584.92 Balance 1584.92 / 1584.92 Lab / Micro Data Result Diagrams: 07/10/21 06:00 07/10/21 06:00 Labs: Laboratory Results - last 24 hr 07/10/21 06:00: WBC 9.4, RBC 4.90, Hgb 15.3 H, Hct 45.6, MCV 93.1, MCH 31.2, MCHC 33.6, RDW Std Deviation 45.1 H, RDW Coeff of Artie 13.2, Plt Count 252, MPV 9.5, Immature Gran % (Auto) 0.200, Neut % (Auto) 69.8, Lymph % (Auto) 19.9, Clinch % (Auto) 9.1, Eos % (Auto) 0.6, Baso % (Auto) 0.4, Absolute Neuts (auto) 6.6, Absolute Lymphs (auto) 1.87, Nucleated RBC % 0 07/10/21 06:00: Sodium 136, Potassium 3.7, Chloride 105, Carbon Dioxide 26.0, Anion Gap 5, BUN 17, Creatinine 0.88, Estim Creat Clear Calc 54.29, Est GFR (MDRD) Af Amer 82, Est GFR (MDRD) Non-Af 68, BUN/Creatinine Ratio 19.3, Glucose 116 H, Calcium 9.6, Troponin I High Sens 44, TSH 1.13 07/10/21 06:00: Hemoglobin A1c 5.4 07/10/21 10:34: Troponin I High Sens 114 H 07/10/21 11:44: Troponin I High Sens 130 H* 07/10/21 11:44: Triglycerides 99, Cholesterol 228 H, LDL Cholesterol 133 H, VLDL Cholesterol 20, HDL Cholesterol 75 Cardiology Labs/Tests 07/10/21 06:00: WBC 9.4, RBC 4.90, Hgb 15.3 H, Hct 45.6, MCV 93.1, MCH 31.2, MCHC 33.6, Plt Count 252, MPV 9.5, Immature Gran % (Auto) 0.200, Neut % (Auto) 69.8, Lymph % (Auto) 19.9, Clinch % (Auto) 9.1, Eos % (Auto) 0.6, Baso % (Auto) 0.4, Absolute Neuts (auto) 6.6, Nucleated RBC % 0 07/10/21 06:00: Sodium 136, Potassium 3.7, Chloride 105, Carbon Dioxide 26.0, Anion Gap 5, BUN 17, Creatinine 0.88, Est GFR (MDRD) Af Amer 82, Est GFR (MDRD) Non-Af 68, BUN/Creatinine Ratio 19.3, Glucose 116 H, Calcium 9.6 07/10/21 06:00: Hemoglobin A1c 5.4 07/10/21 11:44: Triglycerides 99, Cholesterol 228 H, LDL Cholesterol 133 H, VLDL Cholesterol 20, HDL Cholesterol 75 Rhythm: Atrial fibrillation/flutter EKG: As noted above ECHO: As noted below Stress Test: Stress echocardiogram: 09-22-2018 Interpretation Summary The estimated ejection fraction is 65 %. Normal, adequate, treadmill echocardiogram. Negative for ischemia by EKG and echocardiographic criteria. No anginal symptoms noted. No arrhythmias noted. Below average exercise capacity for age.Test terminated due to severe shortness of breath which may be an anginal equivalent. Final LVEF is 75%. Decreased sensitivity due to poor echo windows requiring Definity agent. Patient was in sinus rhythm prior to during, and at the end of the procedure. No complications. The study was technically difficult. Contrast injection was performed. Cardiac Cath: 09-23-2018 CONCLUSIONS Normal LV size, wall motion,and systolic function Non obstructive coronary arteries LVEF: by LV gram 65 % RECOMMENDATIONS Management as per referring Bull Driver d/c plavix, start xeralto in 3 days if groin is stable. Continue cardizem. Start cozaar 25mg po bid. F/u with Dr Treadwell D/c home later today if BP and groin is stable. DESCRIPTION OF PROCEDURE The patient arrived to the procedure lab. The risks and benefits of the procedure as well as a full description of our services here and current unavailability of surgical backup were fully explained to the patient and/or their significant other prior to the catheterization. The Timeout was completed, verifying the correct patient and procedure. The patient's procedural site was prepped and draped in the usual fashion. Local anesthetic was given subcutaneously to right groin region with Lidocaine 2%. Using a modified Seldinger technique, arterial access was obtained via the right femoral artery, a 4Fr sheath was inserted Left Coronary Artery selective angiography was performed in multiple views using a 4 Fr. JL4 catheter. Right Coronary Artery selective angiography was then performed in multiple views using a 4 Fr. 3DRC catheter. Left Ventriculography was performed in GARCIA projection using a 4 Fr. Pigtail catheter. LV to AO pullback pressures were then recorded.The arterial sheath was pulled and manual compression applied until hemostasis is achieved. CORONARY ANGIOGRAPHY DOMINANCE: Co- Dominant LEFT HEART ASSESSMENT Left Ventricular Ejection Fraction: by LV Gram 65 % Normal LV wall motion Normal Left Ventricular systolic function LVEDP: 21 mmHg LEFT MAIN: Angiographically normal LEFT ANTERIOR DESCENDING ARTERY: MID LAD: Mild calcification, 20 % Stenosis CIRCUMFLEX ARTERY: Angiographically normal RIGHT CORONARY ARTERY: Angiographically normal Radiography Diagnostic Testing: Radiology Impression Chest X-Ray 07/10/21 05:58 IMPRESSION: Negative x-ray examination of the chest. No interval change. Electronically Signed: Elder Franco MD at 7:09 EST , Echocardiogram 07/10/21 10:14 Interpretation Summary Left ventricular systolic function is normal. The estimated ejection fraction is 65 %. The left atrium is mildly enlarged. Mild diffuse mitral valve thickening. Mild (1+) mitral valve insufficiency. Mild tricuspid valve insufficiency. Mild diffuse aortic valve thickening. Right ventricular systolic pressure estimated to be 23 mmHg. Unable to assess diastolic dysfunction. Ordering Physician: Nikki Oneill Referring Physician: Trisha Stacy M.D. Performed By: Manjit Pearl RCS
--- NOTE | 2021-07-10 19:07 | EKG12_ITS ---
Test Reason : PRE HEART CATH Blood Pressure : / mmHG Vent. Rate : 062 BPM Atrial Rate : 062 BPM P-R Int : 138 ms QRS Dur : 080 ms QT Int : 444 ms P-R-T Axes : 061 -02 015 degrees QTc Int : 450 ms Normal sinus rhythm Normal ECG Confirmed by NAYE DENNISON, GLADIS ([id number]), supervising editor news reel VICKY DE PAZ ([id number]) on 07/12/2021 10:01:23 AM Referred By: KINDRA Confirmed By:GLADIS YANCEY MD
[2021-07-10] MEDS: dilTIAZem CD 120 MG Capsule PO (21:05)
[2021-07-11] VITALS (11 sets, daily range): BP systolic 122–140; BP diastolic 52–91; PULSE 50–69; RESP 16–18; TEMP 36.6; O2SAT 96–100
[2021-07-11] MEDS: 0.9% Normal Saline 1,000 ML 150 ML IV (05:23)
[2021-07-11] MEDS: dilTIAZem CD 120 MG Capsule PO (05:40)
[2021-07-11] MEDS: Aspirin 81 MG TAB.CHEW PO (05:40)
[2021-07-11 05:49] LABS: Absolute Lymphocyte Count 2.27 X10^3/uL (0.83-4.51); Absolute Neutrophil Count 2.3 X10^3/uL (2.0-7.7); Basophil# 0.04 X10^3/uL; Basophil% 0.8 % (0-1); Eosinophil# 0.09 X10^3/uL; Eosinophils% 1.7 % (0-5); Hematocrit 36.8 % (37-47); Hemoglobin 12.4 g/dL (12.0-15.0); Lymphocyte # 2.27 X10^3/ul (0.83-4.51); Lymphocyte % 43.1 % (19-41); Mean Corp Hgb Conc 33.7 g/dL (32-36); Mean Corpuscular Hgb 31.3 pg (27.0-32.0); Mean Corpuscular Volume 92.9 fL (81-99); Monocyte# 0.61 X10^3/uL; Monocyte% 11.6 % (0-10); NRBC Flagged by Analyzer 0 % (0-5); Neutrophil # 2.25 X10^3/uL (2.7-7.7); Neutrophil % 42.6 % (47-70); Platelet Count 214 K/mm3 (150-450); RBC Distribution Width CV 13.6 % (11.6-14.6); RBC Distribution Width SD 46.6 fl (35.1-43.9); Red Blood Count 3.96 M/mm3 (4.2-5.4); White Blood Count 5.3 K/mm3 (4.4-11.0)
--- NOTE | 2021-07-11 05:55 | EKG12_ITS ---
Test Reason : RHYTHM CHANGE Blood Pressure : / mmHG Vent. Rate : 057 BPM Atrial Rate : 214 BPM P-R Int : 000 ms QRS Dur : 076 ms QT Int : 438 ms P-R-T Axes : 000 004 021 degrees QTc Int : 426 ms Atrial fibrillation Abnormal ECG Confirmed by NAYE DENNISON, GLADIS ([id number]), editor producer VICKY DE PAZ ([id number]) on 07/12/2021 1:53:35 PM Referred By: KINDRA Confirmed By:GLADIS YANCEY MD
[2021-07-11 06:30] LABS: Anion Gap 4 (5-15); BUN 11 mg/dL (7-18); BUN/Creat Ratio 17.2 RATIO (10-20); Calcium,Total 8.1 mg/dL (8.5-10.1); Chloride 113 mmol/L (98-107); Creatinine, Serum 0.64 mg/dL (0.55-1.02); EST Glomerular Filtration Rate 98 mL/min (>60); Est Glom Filt Rate - Afr Amer 119 mL/min (>60); Estimated Creatinine Clearance 47.78 ml/min; Glucose 86 mg/dL (74-106); Potassium 3.9 mmol/L (3.5-5.1); Sodium Level 141 mmol/L (136-145); Troponin-I HS 96 pg/mL (3.0-54.0)
--- NOTE | 2021-07-11 08:37 | CL.D_ITS ---
Patient Name: MEAGAN GONZALEZ Study Date: 07/11/2021 Performing: Yuriy Ahuja MD Ht: 65 inches 165 cm : 1950 Wt: 161.1 lbs 73 kg Age: 71 Gender: female BSA: 1.8 PROCEDURE(S) PERFORMED [id number])LHC/COR/LV CLINICAL PROFILE AND INDICATIONS Indications: Cardiac Arrythmia, Suspected CAD Heart Failure: None Stress/Imaging Stress/Image Study Performed: No Angina Classification Anginal Classification w/in 2 Weeks: CCS IV CAD Presentations: Non-STEMI. CONCLUSIONS Elevated Left Ventricular End Diastolic Pressure Normal LV size, wall motion,and systolic function LVEF: by LV gram 60 % Single vessel CAD of the LAD RECOMMENDATIONS Risk factor modification Medical therapy DESCRIPTION OF PROCEDURE The patient arrived to the procedure lab. The risks and benefits of the procedure as well as a full d escription of our services here and current unavailability of surgical backup were fully explained to the patient and/or their significant other prior to the catheterization. The Timeout was completed, verifying the correct patient and procedure. The patient's procedural site was prepped and draped in the usual fashion. Local anesthetic was given subcutaneously to right radial region with Lidocaine 2% . Using a modified Seldinger technique, arterial access was obtained via the right radial artery, a 6 Fr sheath was inserted. Right Coronary Artery selective angiography was then performed in multiple v iews using a 5 Fr. 4.0 [place] catheter. Left Coronary Artery selective angiography was performed in mu ltiple views using a 5 Fr. JL3.5 catheter. Left Ventriculography was performed in GARCIA projection usin g a 5 Fr. Pigtail catheter. LV to AO pullback pressures were then recorded.The arterial sheath was pulled and a TR Band was applied for hemostasis. Sheath flushed prior to removal, 10cc air inserted. CORONARY ANGIOGRAPHY DOMINANCE: Right Dominant LEFT HEART ASSESSMENT Left Ventricular Ejection Fraction: by LV Gram 60 % Normal LV wall motion Elevated Left Ventricular End Diastolic Pressure LVEDP: 44 mmHg LEFT MAIN: Angiographically normal LEFT ANTERIOR DESCENDING ARTERY: PROX LAD: smooth: eccentric: 25 % Stenosis MID LAD: smooth: eccentric: 25 % Stenosis SEPTAL: SP1: very small caliber vessel: ostial: subtotally occluded CIRCUMFLEX ARTERY: Angiographically normal RIGHT CORONARY ARTERY: Angiographically normal AORTIC ROOT: Angiographically normal COMPLICATIONS No Complications PROCEDURE MEDICATIONS Versed 1 mg IV Fentanyl 50 mcg IV Fentanyl 50 mcg IV Versed 1 mg IV Oxygen: 2 L/min via nasal cannula Heparin given IA 07/11/2021 08:01:10 Verapamil 2.5mg, Ntg 100mcgs, 3000 units of Heparin given IA 07/11/2021 08:01:10 SUMMARY OF HEMODYNAMIC DATA Time AIR REST ECG 07:34:32 Art 165/60 (92) 07:52:01 AO 129/69 (95) SA 08:02:09 LV 145/11, 43 08:12:16 LV 150/12, 44 08:12:22 LV 146/17, 44 08:13:35 LV 154/11, 45 08:13:41 LVp 155/13, 44 08:13:47 AOp 153/73 (105) 08:13:52 Signed By Yuriy Ahuja MD On 07/11/2021 08:35:35 Yuriy Ahuja MD
--- NOTE | 2021-07-11 12:00 | PCM.DC.SUM ---
Providers Date of Admission: 07/10/21 Primary Care Physician: Dr. Trisha Stacy DO Consultations 07/10/21 10:14 Consult: Cardiology Routine Consulting Provider: Yuriy Ahuja Reason for Consult: afib with RVR EMERGENT Consult: No MD Notified: Yes Date Notified: 07/10/21 Time Notified: 10:15 Method of Notification: Text Reason For Visit: AFIB WITH RVR Diagnosis Discharge Diagnosis (1) Atrial fibrillation with RVR: Status: Acute Code(s): I48.91 - Unspecified atrial fibrillation (2) Ventricular tachycardia: Status: Acute Code(s): I47.2 - Ventricular tachycardia (3) Abnormal cardiac enzyme level: Status: Acute Code(s): R74.8 - Abnormal levels of other serum enzymes (4) HLD (hyperlipidemia): Status: Chronic Code(s): E78.5 - Hyperlipidemia, unspecified Qualifiers: Hyperlipidemia type: unspecified Qualified Code(s): E78.5 - Hyperlipidemia, unspecified Medications at Discharge Home Medications calcium 1,200 mg PO 07/10/21 cholecalciferol (vitamin D3) [Vitamin D3] PO DAILY 07/10/21 omega 8-kgs-jiv-fish oil [Fish Oil] cap PO DAILY 07/10/21 apixaban [Eliquis] 5 mg PO BID #60 tab 07/11/21 aspirin 81 mg PO BREAKFAST #30 tab 07/11/21 atorvastatin 40 mg PO QHS #30 tab 07/11/21 diltiazem HCl 120 mg PO DAILY #30 cap 07/11/21 Hospital Course Operations None Procedures 2-D Echocardiogram and Cardiac catheterization Summary of Care Provided Minutes Spent on Discharge: 45 Hospital Course: MEAGAN GONZALEZ, is a 71 F with a PMH as outlined who presents via the ED on 07/10/2021 with a complaint of chest pain and shortness of breath as well as palpitations which woke her up in the middle of the night. She says the chest pain radiated to her back and her left arm. She has a history of A. fib and states she is not been taking her Cardizem because it gave her short-term memory loss. As such, with her having palpitations, she figured this was A. fib and so she came into the ED. She admitted to some lightheadedness and dizziness but denied any nausea vomiting or any other symptoms. Patient says she was diagnosed with A. fib about a year ago but has not been taking her Cardizem as mentioned above. She was also put on blood thinners but these she had not been taking that and had been taking a natural supplement which according to her research that she conducted, was noted to be a very effective blood thinner according to an article she read from [employer]. Review of systems was otherwise negative. Vitals in the ED were temperature of 98.1 Fahrenheit with pulse rate of 114 going up into the 140s and 150s, blood pressure of 131/111 and 15. She was saturating at 98% on room air. EKG showed A. fib with RVR. CBC and BMP were unremarkable and TSH was 1.13. She was admitted to be managed for A. fib with RVR. Her troponins also subsequently trended up she met the criteria for non-STEMI though she had no chest pain. She was started on Cardizem drip and subcu therapeutic Lovenox. Cardiology was consulted. She had a 2D echo which showed normal left ventricular systolic function with EF of 65% and RVSP of 23 mmHg with inability to assess diastolic dysfunction and mildly enlarged left atrium. Cardiology determined that patient would benefit from a cardiac cath which showed 25% stenosis in the proximal and mid LAD and RCA and circumflex arteries were normal. Patient converted to normal sinus rhythm and was put on p.o. Cardizem. Patient admitted to not being compliant with her home medications and had been taken herbal supplements. She was counseled to be compliant with her medications due to the risk of stroke with A. fib. Patient was started with aspirin as well as high intensity statin and Cardizem was also put on Eliquis, to start Eliquis on 07/12/2021. 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 Patient seen and examined prior to discharge. She had no active complaints and felt well. She felt much better. Her was by her bedside. Review of systems otherwise negative. Labs and vitals reviewed. Home medication reviewed and reconciled. Physical Exam Const alert, oriented x3 and no apparent distress General Appearance: cooperative, comfortable and well kempt Orientation / Consciousness: awake Exam Limitations: no limitations HEENT normocephalic, head/scalp atraumatic, moist oral mucous membranes and oropharynx normal Eyes PERRL, EOMs intact bilaterally and conjunctivae normal Neck no lymphadenopathy, supple and no JVD Resp normal respiratory effort, no retractions, no use of accessory muscles and clear to auscultation bilaterally Cardio regular rate, regular rhythm, S1 normal heart sound, S2 normal heart sound and no murmurs GI normal to inspection, nondistended, normoactive bowel sounds, soft to palpation, non-tender and non-distended Extremity normal to inspection, full ROM and no clubbing, cyanosis or edema Skin no rashes or lesions noted Neuro oriented x3, CN's II-XII intact bilaterally and moves all extremities Sensorium / Orientation: awake and alert Psych affect normal Weight / BMI Weight Weight: 161 lb 13.109 oz Body Mass Index (BMI) 26.9 ABG / Lab / Microbiology Data Result Diagrams: 07/11/21 04:54 07/11/21 04:54 Laboratory: Laboratory Results - last 24 hr 07/10/21 06:00: Hemoglobin A1c 5.4 07/10/21 11:44: Troponin I High Sens 130 H* 07/10/21 11:44: Triglycerides 99, Cholesterol 228 H, LDL Cholesterol 133 H, VLDL Cholesterol 20, HDL Cholesterol 75 07/11/21 04:54: WBC 5.3, RBC 3.96 L, Hgb 12.4, Hct 36.8 L, MCV 92.9, MCH 31.3, MCHC 33.7, RDW Std Deviation 46.6 H, RDW Coeff of Artie 13.6, Plt Count 214, MPV 10.0, Immature Gran % (Auto) 0.200, Neut % (Auto) 42.6 L, Lymph % (Auto) 43.1 H, [place] % (Auto) 11.6 H, Eos % (Auto) 1.7, Baso % (Auto) 0.8, Absolute Neuts (auto) 2.3, Absolute Lymphs (auto) 2.27, Nucleated RBC % 0 07/11/21 04:54: Sodium 141, Potassium 3.9, Chloride 113 H, Carbon Dioxide 24.0, Anion Gap 4 L, BUN 11, Creatinine 0.64, Estim Creat Clear Calc 47.78, Est GFR (MDRD) Af Amer 119, Est GFR (MDRD) Non-Af 98, BUN/Creatinine Ratio 17.2, Glucose 86, Calcium 8.1 L, Troponin I High Sens 96 H Radiography Diagnostic Testing: Radiology Impression Echocardiogram 07/10/21 10:14 Interpretation Summary Left ventricular systolic function is normal. The estimated ejection fraction is 65 %. The left atrium is mildly enlarged. Mild diffuse mitral valve thickening. Mild (1+) mitral valve insufficiency. Mild tricuspid valve insufficiency. Mild diffuse aortic valve thickening. Right ventricular systolic pressure estimated to be 23 mmHg. Unable to assess diastolic dysfunction. Ordering Physician: Nikki Oneill Referring Physician: Trisha Stacy M.D. Performed By: Manjit Pearl RCS D/C Instructions Discharge Diet: Low fat / Low cholesterol Discharge Activity: Return to Normal Activity Weight Bearing Status: Weight bearing as tolerated Call your doctor if you observe: Fever of 101 or Higher, Shortness of breath, Dizziness, Swelling in the ankles, Chest pain and Increased palpitations (irregular heartbeat) Meaningful Use Info Meaningful Use Diagnoses (Choose all that apply): None applicable Discharge Plan Admission Admit Date/Time: 07/10/21 07:31 Primary Reason for Your Visit: afib with RVR Attending Provider: Nikki Oneill Primary Care Provider: Trisha Stacy Consulting Providers: Yuriy Ahuja Discharge Orders/Prescriptions Prescriptions: New Eliquis 5 mg Tablet 5 mg PO BID Qty: 60 RF: 2 atorvastatin 40 mg Tablet 40 mg PO QHS Qty: 30 RF: 2 aspirin 81 mg Tablet,Chewable 81 mg PO BREAKFAST Qty: 30 RF: 2 diltiazem HCl 120 mg Capsule,Extended Release 24hr 120 mg PO DAILY Qty: 30 RF: 2 Continued calcium 600 mg Capsule 1,200 mg PO RF: 0 cholecalciferol (vitamin D3) [Vitamin D3] 25 mcg (1,000 unit) Tablet PO DAILY RF: 0 omega 8-jpc-ell-fish oil [Fish Oil] 1,200 (144-216) mg Capsule PO DAILY RF: 0 Discontinued hawthorn BID RF: 0 rutin RF: 0 Referrals / Follow Up: Trisha Stacy DO [Primary Care Provider] - Within 2 Weeks Yuriy Ahuja MD [STAFF PHYSICIAN] - Within 2 Weeks Disposition Disposition (needs filled in before D/C Order can be placed): Home, Self Care Charges/Coding Visit Charges Inpatient E&M: 56356 Disch Hosp
--- NOTE | 2021-07-11 12:33 | PN.CARD_ITS ---
Subjective Subjective The patient underwent diagnostic cardiac catheterization this day. She appears to have had no obvious adverse procedure event. Objective Data Vital Signs: Vital Signs Temp Pulse Resp BP Pulse Ox 97.8 F 69 16 124/52 H 96 07/11/21 10:30 07/11/21 10:30 07/11/21 10:30 07/11/21 10:30 07/11/21 10:30 Oxygen Delivery Method Room Air Weight: 161 lb 13.109 oz Body Mass Index (BMI) 26.9 Intake & Output: Intake and Output for Last 24 Hours 07/09/21 07/10/21 07/11/21 23:59 23:59 23:59 Intake Total 3186.09 / 3386.09 1802.5 / 1802.5 Output Total 700 / 700 Balance 3186.09 / 2686.09 1102.5 / 1102.5 Lab / Micro Data Result Diagrams: 07/11/21 04:54 07/11/21 04:54 Labs: Laboratory Results - last 24 hr 07/10/21 06:00: Hemoglobin A1c 5.4 07/10/21 11:44: Triglycerides 99, Cholesterol 228 H, LDL Cholesterol 133 H, VLDL Cholesterol 20, HDL Cholesterol 75 07/11/21 04:54: WBC 5.3, RBC 3.96 L, Hgb 12.4, Hct 36.8 L, MCV 92.9, MCH 31.3, MCHC 33.7, RDW Std Deviation 46.6 H, RDW Coeff of Artie 13.6, Plt Count 214, MPV 10.0, Immature Gran % (Auto) 0.200, Neut % (Auto) 42.6 L, Lymph % (Auto) 43.1 H, [place] % (Auto) 11.6 H, Eos % (Auto) 1.7, Baso % (Auto) 0.8, Absolute Neuts (auto) 2.3, Absolute Lymphs (auto) 2.27, Nucleated RBC % 0 07/11/21 04:54: Sodium 141, Potassium 3.9, Chloride 113 H, Carbon Dioxide 24.0, Anion Gap 4 L, BUN 11, Creatinine 0.64, Estim Creat Clear Calc 47.78, Est GFR (MDRD) Af Amer 119, Est GFR (MDRD) Non-Af 98, BUN/Creatinine Ratio 17.2, Glucose 86, Calcium 8.1 L, Troponin I High Sens 96 H Cardiology Labs/Tests 07/10/21 06:00: Hemoglobin A1c 5.4 07/10/21 11:44: Triglycerides 99, Cholesterol 228 H, LDL Cholesterol 133 H, VLDL Cholesterol 20, HDL Cholesterol 75 07/11/21 04:54: WBC 5.3, RBC 3.96 L, Hgb 12.4, Hct 36.8 L, MCV 92.9, MCH 31.3, MCHC 33.7, Plt Count 214, MPV 10.0, Immature Gran % (Auto) 0.200, Neut % (Auto) 42.6 L, Lymph % (Auto) 43.1 H, [place] % (Auto) 11.6 H, Eos % (Auto) 1.7, Baso % (A uto) 0.8, Absolute Neuts (auto) 2.3, Nucleated RBC % 0 07/11/21 04:54: Sodium 141, Potassium 3.9, Chloride 113 H, Carbon Dioxide 24.0, Anion Gap 4 L, BUN 11, Creatinine 0.64, Est GFR (MDRD) Af Amer 119, Est GFR (MDRD) Non-Af 98, BUN/Creatinine Ratio 17.2, Glucose 86, Calcium 8.1 L Rhythm: Sinus rhythm EKG: Sinus rhythm; no acute ECG changes Cardiac Cath: CONCLUSIONS Elevated Left Ventricular End Diastolic Pressure Normal LV size, wall motion,and systolic function LVEF: by LV gram 60 % Single vessel CAD of the LAD RECOMMENDATIONS Risk factor modification Medical therapy DESCRIPTION OF PROCEDURE The patient arrived to the procedure lab. The risks and benefits of the proce dure as well as a full description of our services here and current unavailability of surgical backup were fully explained to the patient and/or their significant other prior to the catheterization. The Timeout was completed, verifying the correct patient and procedure. The patient's procedural site was prepped and draped in the usual fashion. Local anesthetic was given subcutaneously to right radial region with Lidocaine 2%. Using a modified Seldinger technique, arterial access was obtained via the right radial artery, a 6Fr sheath was inserted. Right Coronary Artery selective angiography was then performed in multiple views using a 5 Fr. 4.0 Dix catheter. Left Coronary Artery selective angiography was performed in multiple views using a 5 Fr. JL3.5 catheter. Left Ventriculography was performed in GARCIA projection using a 5 Fr. Pigtail catheter. LV to AO pullback pressures were then recorded.The arterial sheath was pulled and a TR Band was applied for hemostasis. Sheath flushed prior to removal, 10cc air inserted. CORONARY ANGIOGRAPHY DOMINANCE: Right Dominant LEFT HEART ASSESSMENT Left Ventricular Ejection Fraction: by LV Gram 60 % Normal LV wall motion Elevated Left Ventricular End Diastolic Pressure LVEDP: 44 mmHg LEFT MAIN: Angiographically normal LEFT ANTERIOR DESCENDING ARTERY: PROX LAD: smooth: eccentric: 25 % Stenosis MID LAD: smooth: eccentric: 25 % Stenosis SEPTAL: SP1: very small caliber vessel: ostial: subtotally occluded CIRCUMFLEX ARTERY: Angiographically normal RIGHT CORONARY ARTERY: Angiographically normal AORTIC ROOT: Angiographically normal Radiography Diagnostic Testing: Radiology Impression Echocardiogram 07/10/21 10:14 Interpretation Summary Left ventricular systolic function is normal. The estimated ejection fraction is 65 %. The left atrium is mildly enlarged. Mild diffuse mitral valve thickening. Mild (1+) mitral valve insufficiency. Mild tricuspid valve insufficiency. Mild diffuse aortic valve thickening. Right ventricular systolic pressure estimated to be 23 mmHg. Unable to assess diastolic dysfunction. Ordering Physician: Nikki Oneill Referring Physician: Trisha Stacy M.D. Performed By: Manjit Pearl RCS Physical Exam Const alert, oriented x3 and no apparent distress Orientation / Consciousness: awake HEENT normocephalic, head/scalp atraumatic and hearing grossly normal bilaterally Eyes PERRL, EOMs intact bilaterally and conjunctivae normal Neck full ROM, supple and no JVD Resp clear to auscultation bilaterally Cardio Rate: tachycardic Rhythm: abnormal rhythm irregularly irregular Heart Sounds: S1 normal and S2 normal GI normal to inspection, nondistended, normoactive bowel sounds Extremity no pedal edema Peripheral Pulses: Yes radial pulses present right 2+ Skin no rashes or lesions noted Neuro oriented x3, moves all extremities, no focal motor deficits and no sensory deficits noted Psych mental status grossly normal Assessment & Plan Assessment/Plan (1) Atrial fibrillation with RVR: PLAN: The patient has a history of paroxysmal atrial fibrillation with RVR. Based upon her cardiac rhythm strips to stay it appears she has had episodes compatible with atrial fibrillation/flutter with RVR. She did have spontaneous conversion to sinus rhythm. The present time she will continue medical therapy with oral diltiazem CD as well as anticoagulant therapy-which can be a reassess going forward with respect to the duration. (2) Ventricular tachycardia: PLAN: She has a history of underlying cardiac ectopy/ventricular tachycardia. At the moment she has had no obvious recurrent wide-complex dysrhythmias. She has undergone noninvasive and invasive valuation in the past. She will continue to be monitored. (3) Abnormal cardiac enzyme level: PLAN: She has undergone subsequent evaluation with diagnostic cardiac catheterization. The findings are as noted. At the present time it is felt her abnormal cardiac enzyme level is a type II event secondary to her atrial fibrillation/flutter with RVR superimposed upon her underlying cardiovascular condition. She will continue medical management. (4) HLD (hyperlipidemia): QUALIFIERS: Hyperlipidemia type: unspecified Qualified Code(s): E78.5 - Hyperlipidemia, unspecified PLAN: Based upon her cardiac catheterization findings it has been recommended to her that she initiate medical therapy with prescription lipid- lowering therapy to help optimize her cardiovascular risks. Addt'l Comments She will continue medical management. She will be asked to have future outpatient cardiovascular follow-up. The aforementioned information was conveyed to Dr. Oneill. This note was generated using a voice recognition system and there may be incorrect words, spelling or punctuation that were not noted when reviewing the office note prior to saving.
--- NOTE | 2021-07-11 13:06 | CASEMGMT ---
Pt to be sent home on Eliquis and med e-scribed to [facility] in [place]. Call to [facility] and per pharmacist, pt's co-pay is $496, which is likely deductible. Pt updated and provided with Eliquis 30 day free trial card, voices understanding. Pt voices no further questions/concerns/needs. Tanvi BELTRÁN CM
== END 2021-07-11 13:56 | disposition home or self-care (01) | DRG 282 ==
LOC: ED 07:35 → PCU 07:54
PROVIDERS: Admitting Provider Student in an Organized Health Care Education/Training Program; Emergency Provider Emergency Medicine; PCP Internal Medicine; Visit Provider Student in an Organized Health Care Education/Training Program
DX: I48.0 Paroxysmal atrial fibrillation (principal); I21.A1 Myocardial infarction type 2; I47.2 Ventricular tachycardia; I25.10 Atherosclerotic heart disease of native coronary artery without angina pectoris; E78.5 Hyperlipidemia, unspecified; J45.909 Unspecified asthma, uncomplicated; M19.90 Unspecified osteoarthritis, unspecified site; Z91.14 Patient's other noncompliance with medication regimen; Z87.891 Personal history of nicotine dependence; Z79.899 Other long term (current) drug therapy
CPT/HCPCS: 36415; 71045; 80048; 80061; 83036; 84443; 84484; 85025; 93005; 93306; 93458; 99152; 99153; 99283; J7030; Q9967; A4216; C1769; C1894

== ENCOUNTER 2021-08-31 12:57 | Emergency (ER) | payer MEDICARE, OTHER, SELFPAY ==
[2021-08-31 12:58] VITALS: BP 133/91; PULSE 95; RESP 18; TEMP 36.4; O2SAT 100; BMI 29.6
--- NOTE | 2021-08-31 13:16 | RAD_ITS ---
STUDY: X-RAY - RIGHT ANKLE REASON FOR EXAM: Female, 71 years old. Injury TECHNIQUE: 3 view(s) of the ankle. COMPARISON: None. FINDINGS: Demineralized visualized distal tibia and fibula. Normal medial and lateral malleoli. Normal tibiotalar articulation and ankle mortise. There is a plantar spur. The visualized subtalar, talonavicular, calcaneocuboid and tarsal articulations are normal. There is partially visualized postoperative change of the distal first digit. RAD/Ankle min 3 Views IMPRESSION: Bony demineralization. No visualized acute fracture. Electronically Signed: Liss Hairston MD at 14:21 EDT Reading Location ID and State: [facility] / [place] Tel , Service support ,
--- NOTE | 2021-08-31 13:16 | RAD_ITS ---
STUDY: X-RAY - LEFT HAND, ATTENTION 1 FINGER REASON FOR EXAM: Female, 71 years old. injury TECHNIQUE: 3 view(s) of the finger were obtained. COMPARISON: None. FINDINGS: Normal metacarpal head. Normal metacarpophalangeal joint. Normal proximal phalanx. Normal middle phalanx. Normal distal phalanx. Normal proximal interphalangeal joint. Normal distal interphalangeal joint. RAD/Finger(s) Min 2 Views IMPRESSION: Normal x-ray examination of the finger. Electronically Signed: Sima Bailey MD at 14:31 EDT ,
--- NOTE | 2021-08-31 13:16 | CT_ITS ---
STUDY: CT BRAIN WITHOUT CONTRAST REASON FOR EXAM: Female, 71 years old. Injury RADIATION DOSAGE (If Supplied By Facility): CTDIvol = ( 44.99 ) mGy, DLP = ( 829.85 ) mGycm TECHNIQUE: Transaxial CT imaging of the brain was performed without administration of intravenous contrast material. Individualized dose optimization techniques were used for this CT. COMPARISON: No relevant priors. FINDINGS: Normal soft tissue structures. Normal calvarium. There is mild cerebral atrophy with widening of the extra-axial spaces and ventricular dilatation. There are areas of decreased attenuation within the white matter tracts of the supratentorial brain, consistent with microvascular disease changes. There are small punctate calcifications of the basal ganglia which are seen in the aging brain as a normal variant. Normal brainstem. There is mild cerebellar atrophy. There is no intracranial hemorrhage. There are no findings of an acute ischemic infarction. Normal visualized paranasal sinuses. CT/Brain/Head without Contrast IMPRESSION: Atrophy no evidence of acute hemorrhage infarct or edema. Electronically Signed: Liss Hairston MD at 14:23 EDT ,
--- NOTE | 2021-08-31 13:18 | EX.ED.GENINJ ---
HPI History of Present Illness Chief Complaint: Fall Informant: patient Narrative Narrative: 71-year-old female sustained a mechanical fall when she tripped on an unknown object in the garage striking her head on the ground. This resulted in a left eyebrow laceration. No loss of consciousness. Patient notes that she is on Eliquis and is concerned about internal bleeding. She notes pain to the left thumb at the PIP joint and notes that the right ankle is cracking when she moves it Tetanus Immunization: Unknown [facility] Medical History Abnormal cardiac enzyme level Atherosclerotic heart disease of [place] coronary artery without angina pectoris Atrial fibrillation with RVR Elevated troponin HLD (hyperlipidemia) Hypersomnia Non-ST elevation (NSTEMI) myocardial infarction Osteoarthritis Snoring Ventricular tachycardia Home Medications calcium 1,200 mg PO 07/10/21 [History Last Taken Unknown] cholecalciferol (vitamin D3) [Vitamin D3] PO DAILY 07/10/21 [History Last Taken Unknown] omega 1-mvj-iit-fish oil [Fish Oil] cap PO DAILY 07/10/21 [History Last Taken Unknown] aspirin 81 mg PO BREAKFAST #30 tab 07/11/21 [Rx Last Taken Unknown] diltiazem HCl 120 mg capsule,extended release 24 hr 120 mg PO DAILY #30 cap 08/02/21 [Rx Last Taken Unknown] lecithin, soy 400 mg capsule 400 mg PO BID 08/02/21 [History Last Taken Unknown] vitamin E (dl, acetate) 180 mg (400 unit) capsule 100 unit PO DAILY 08/02/21 [History Last Taken Unknown] apixaban 5 mg tablet 5 mg PO BID #180 tab 08/22/21 [Rx Last Taken Unknown] Allergy/AdvReac Type Severity Reaction Status Date / Time No Known Allergies Allergy Verified 08/31/21 12:58 Family History (Reviewed 08/02/21 @ 16:14 by Sim Potts TRAIL MAINTENANCE WORKER, TRAIL MAINTENANCE WORKER-C) Mother Atrial fibrillation Surgical History History of left heart catheterization (07/10/21) Knee joint replacement status Social History household members: spouse housing: house Smoking Status: Former smoker substance use type: does not use ROS ROS ED Constitutional Constitutional ED: Denies chills or weight loss Eyes Eyes: Denies blurry vision, change in vision or diplopia ENT ENT ED: Denies ear pain, rhinorrhea or sore throat Cardiovascular Cardiovascular: Denies chest pain, orthopnea, palpitations or racing heartbeat Respiratory/Chest Respiratory/Chest: Denies cough, dyspnea or orthopnea Gastrointestinal Gastrointestinal: Denies abdominal pain, diarrhea, nausea or vomiting Genitourinary Genitourinary ED: Denies dysuria, hematuria or urinary frequency Musculoskeletal Musculoskeletal: Reports other Details: See history of present illness ; Denies arthralgias or myalgias Integumentary Denies abscess or rash Neurologic Neurologic: Denies headache(s) or weakness Psychiatric Psychiatric: Denies anxiety, depression, suicidal ideation or suicidal thoughts Endocrine Endocrinology: Denies polydipsia, polyphagia or polyuria Allergic/Immunologic Allergic/Immunologic ED: Denies mouth swelling, tongue swelling or urticaria EXAM Physical Exam Const Vital Signs: 08/31/21 12:58 08/31/21 13:10 Temperature 97.5 F L Temperature Source Oral Pulse Rate 95 Respiratory Rate 18 Respiratory Effort Normal Non-Labored Respiratory Depth Normal Respiratory Pattern Normal Blood Pressure 133/91 H Blood Pressure Mean 105 Pulse Ox 100 Oxygen Delivery Method Room Air Positive well nourished and well developed General Appearance ED: well developed HEENT Reports normocephalic, head/scalp atraumatic, TM's clear and moist mucous membranes HEENT Narrative: 3 cm curvilinear laceration to the left eyebrow wound edges are approximated. trauma Tympanic Membrane ED: Yes TM's clear Eyes PERRL and EOMs intact bilaterally General Eye ED: Yes other Other Details: No hyphema or subconjunctival hemorrhage noted. No orbital step-offs felt Neck full ROM, no lymphadenopathy, supple and no JVD General: Negative for tenderness Resp normal respiratory effort and clear to auscultation bilaterally Cardio regular rate, regular rhythm and no murmurs GI normal to inspection, nondistended, normoactive bowel sounds and non-tender Palpation: soft Back/Spine no CVA tenderness and normal ROM Extremity Extremity Narrative: Patient has tenderness to palpation over the left PIP joint of the thumb. Mild tenderness to palpation of the lateral malleolus of the right ankle. No fifth metatarsal or fibular head pain. Achilles palpates intact. General Extremety ED: Negative for edema General Extremity: Negative for edema Neuro oriented x3 and CN's II-XII intact bilaterally Sensorium / Orientation: alert Motor Exam: strength 5/5 throughout Psych mental status grossly normal Mood & Affect: Negative for depressed or tearful Skin no rashes or lesions noted and no wounds MDM MDM MDM Narrative Medical decision making narrative: CT of the brain was obtained which does not demonstrate any evidence of intracranial hemorrhage or fracture. My interpretation of the plain films of the right ankle is no acute fracture. My interpretation of the plain films of the left thumb there is no acute fracture. Clinically the patient has a sprain involving the palmar surface at the PIP joint of the thumb. This was wrapped. Using 1% lidocaine the left eyebrow was locally anesthetized. It was closed using a total of 7 simple interrupted 5-0 Vicryl sutures. Wound care discussed with patient. Patient to return if worsening or concerns Radiography Diagnostic Testing: Clinical Impression(s) from Imaging Studies Ankle X-Ray 08/31/21 13:16 IMPRESSION: Bony demineralization. No visualized acute fracture. Electronically Signed: Liss Hairston MD at 14:21 EDT , Brain CT 08/31/21 13:16 IMPRESSION: Atrophy no evidence of acute hemorrhage infarct or edema. Electronically Signed: Liss Hairston MD at 14:23 EDT , Finger X-Ray 08/31/21 13:16 IMPRESSION: Normal x-ray examination of the finger. Electronically Signed: Sima Bailey MD at 14:31 EDT , Discharge Plan Triage Chief Complaint: Fall ED Provider: Abiel Saucedo Dx/Rx/DC Orders Clinical Impression: Laceration of face, Head injury, acute, Left thumb sprain, Right ankle sprain, Anticoagulated by anticoagulation treatment Instructions: ED Head Injury (Adult), ED Laceration: All Closures, ED Finger Sprain Prescriptions: No Action vitamin E (dl, acetate) 180 mg (400 unit) capsule 100 unit PO DAILY RF: 0 lecithin, soy 400 mg capsule 400 mg PO BID RF: 0 diltiazem HCl 120 mg capsule,extended release 24hr 120 mg PO DAILY Qty: 30 RF: 11 calcium 600 mg Capsule 1,200 mg PO RF: 0 cholecalciferol (vitamin D3) [Vitamin D3] 25 mcg (1,000 unit) Tablet PO DAILY RF: 0 omega 5-rpg-xis-fish oil [Fish Oil] 1,200 (144-216) mg Capsule PO DAILY RF: 0 aspirin 81 mg Tablet,Chewable 81 mg PO BREAKFAST Qty: 30 RF: 2 Eliquis 5 mg tablet 5 mg PO BID Qty: 180 RF: 3 Primary Care Provider: Trisha Stacy Referrals: Trisha Stacy DO [Primary Care Provider] - As Needed Activity Restrictions/Additional Instructions: As discussed the stitches placed today are dissolvable. He will not need to have them removed by your doctor. Disposition Disposition: Home, Self Care
== END 2021-08-31 14:59 | disposition home or self-care (01) ==
PROVIDERS: Emergency Provider Emergency Medicine; PCP Internal Medicine; Visit Provider Emergency Medicine
DX: S01.81XA Laceration without foreign body of other part of head, initial encounter (principal); I48.91 Unspecified atrial fibrillation; S93.401A Sprain of unspecified ligament of right ankle, initial encounter; S63.602A Unspecified sprain of left thumb, initial encounter; E78.5 Hyperlipidemia, unspecified; Z87.891 Personal history of nicotine dependence; I25.10 Atherosclerotic heart disease of native coronary artery without angina pectoris; I25.2 Old myocardial infarction; M19.90 Unspecified osteoarthritis, unspecified site; Z79.899 Other long term (current) drug therapy; Z79.82 Long term (current) use of aspirin; Z79.01 Long term (current) use of anticoagulants; W01.10XA Fall on same level from slipping, tripping and stumbling with subsequent striking against unspecified object, initial encounter; Y93.9 Activity, unspecified; Y92.59 Other trade areas as the place of occurrence of the external cause; Y99.9 Unspecified external cause status
CPT/HCPCS: 12013; 70450; 73140; 73610; 99282

== ENCOUNTER → 2022-05-08 | Outpatient (CLI) | payer MEDICARE, OTHER, SELFPAY ==
--- NOTE | 2022-05-08 10:53 | BD_ITS ---
STUDY: DUAL ENERGY X-RAY ABSORPTIOMETRY / DXA REASON FOR EXAM: Female, 72 years old. 627.8Menopausal postmenopausalBONE DENSITY REASON FOR EXAM TECHNIQUE: Bone Mineral Density (BMD) measurements of lumbar spine and bilateral hips were obtained. COMPARISON: None. FINDINGS: Lumbar Spine (L1-L4): g/cm2 (0.917) / T-score (-1.2) / Z-score (0.9) Findings are suggestive of osteopenia with a low fracture risk. Left Femur Total: g/cm2 (0.730) / T-score (-1.7) / Z-score (-0.2) Left Femoral Neck: g/cm2 (0.588) / T-score (-2.4) / Z-score (-0.6) Right Femur Total: g/cm2 (0.665) / T-score (-2.3) / Z-score (-0.8) Right Femoral Neck: g/cm2 (0.5 orally) / T-score (-3.1) / Z-score (-1.3) BD/Dexa Bone Density Study IMPRESSION: The patient is considered osteoporotic as outlined below according to World Juan Organization (WHO) criteria with a high fracture risk. Reference Information: The T-score is the number of standard deviations above or below the standard which is normal for young adults at their peak bone mineral density. The World Health Organization (WHO) interprets the T-scores as follows: Above -1 Normal bone density Between -1 and -2.5 Osteopenia Equal to / or below -2.5 Osteoporosis As a practical clinical guideline, osteopenia may be graded as follows: Mild -1 through -1.5 Moderate -1.6 through -2.0 Severe -2.1 through -2.4 The Z-score is the number of standard deviations above or below age-matched controls. A Z-score of less than -1.5 would be considered abnormal. References: 1. NIH Osteoporosis and Related Bone Diseases www osteo.org 2. International Society for Clinical Densitometry www iscd.org 3. National Osteoporosis Foundation www nof.org Electronically Signed: Jovi Khan MD at 9:36 EST ,
== END | disposition home or self-care (01) ==
LOC: OPBD 10:40
PROVIDERS: PCP Internal Medicine; Referring Provider Internal Medicine; Visit Provider Internal Medicine
DX: Z78.0 Asymptomatic menopausal state (principal)
CPT/HCPCS: 77080

== ENCOUNTER → 2022-08-28 | Outpatient (CLI) | payer MEDICARE, OTHER, SELFPAY ==
[2022-08-28 13:10] LABS: Anion Gap 3 (5-15); BUN 16 mg/dL (7-18); BUN/Creat Ratio 22.8 RATIO (10-20); Calcium,Total 9.7 mg/dL (8.5-10.1); Chloride 105 mmol/L (98-107); EST Glomerular Filtration Rate 88 mL/min (>60); Est Glom Filt Rate - Afr Amer 106 mL/min (>60); Glucose 95 mg/dL (74-106); Magnesium 2.3 mg/dL (1.6-2.6); Potassium 4.7 mmol/L (3.5-5.1); Sodium Level 136 mmol/L (136-145); T4 Total, Thyroxin 8.1 ug/dL (4.8-13.9); Thyroid Stim Hormone (TSH) 0.77 uIU/mL (0.358-3.74)
[2022-08-28 21:34] LABS: Hemoglobin 14.6 g/dL (12.0-15.0); Mean Corp Hgb Conc 32.4 g/dL (32-36); Mean Corpuscular Hgb 30.3 pg (27.0-32.0); Mean Corpuscular Volume 93.4 fL (81-99); Mean Platelet Vol. 9.8 fl (6.2-12.0); Platelet Count 257 K/mm3 (150-450); RBC Distribution Width CV 13.2 % (11.6-14.6); RBC Distribution Width SD 45.2 fl (35.1-43.9); Red Blood Count 4.82 M/mm3 (4.2-5.4); White Blood Count 6.3 K/mm3 (4.4-11.0)
== END | disposition home or self-care (01) ==
LOC: LAB 11:53
PROVIDERS: PCP Internal Medicine; Referring Provider Nurse Practitioner Family; Visit Provider Nurse Practitioner Family
DX: I48.0 Paroxysmal atrial fibrillation (principal); R00.0 Tachycardia, unspecified; R06.09 Other forms of dyspnea; R53.83 Other fatigue
CPT/HCPCS: 36415; 80048; 83735; 84436; 84443; 85027

== ENCOUNTER → 2022-09-04 | Outpatient (CLI) | payer MEDICARE, OTHER, SELFPAY | END | disposition home or self-care (01) | LOC: PSN 10:31 | PROVIDERS: PCP Internal Medicine; Referring Provider Nurse Practitioner Family; Visit Provider Nurse Practitioner Family | DX: R06.09 Other forms of dyspnea (principal); I48.0 Paroxysmal atrial fibrillation; R00.0 Tachycardia, unspecified | CPT/HCPCS: 93225; 93226 ==

== ENCOUNTER → 2023-08-12 | Outpatient (CLI) | payer MEDICARE, OTHER, SELFPAY | END | disposition home or self-care (01) | LOC: PSN 08:40 | PROVIDERS: PCP Internal Medicine; Referring Provider Nurse Practitioner Family; Visit Provider Nurse Practitioner Family | DX: I48.0 Paroxysmal atrial fibrillation (principal) | CPT/HCPCS: 93225; 93226 ==

== ENCOUNTER → 2024-02-10 | Outpatient (CLI) | payer MEDICARE, OTHER, SELFPAY ==
--- NOTE | 2024-02-10 06:50 | ECHOD_ITS ---
Reason For Study: ATRIAL FIBRILLATION Procedure This was a 2D Doppler, Color Flow transthoracic echocardiogram. Exam performed in department. Left Ventricle Normal size and thickness. The left ventricular ejection fraction is 65 %. Normal diastology for age. Right Ventricle Normal right ventricle. Atria The left and right atria are normal. Mitral Valve Trivial mitral valve insufficiency. Tricuspid Valve Trivial tricuspid valve insufficiency. Normal pulmonary artery pressure. Aortic Valve Trisinus/trileaflet aortic valve. Pulmonic Valve Trivial pulmonic valve insufficiency. Great Vessels Normal sized aortic root. Pericardium/Pleural No pericardial effusion. MMode/2D Measurements & Calculations LVIDd: 4.2 cm IVSd: 0.91 cm LVOT diam: 2.0 cm LVIDs: 2.1 cm LVPWd: 0.73 cm LVOT area: 3.1 cm2 RVDd: 3.7 cm FS: 49.6 % LA dimension: 4.0 cm asc Aorta Diam: 3.0 cm LAV(MOD-bp): 45.8 ml LAV(MOD-bp) Indexed: 25.2 ml/m2 LAV(MOD-sp2): 49.0 ml LAV(MOD-sp4): 40.1 ml SV(MOD-sp4): 29.2 ml LVAd ap4: 18.6 cm2 LVAd ap2: 18.6 cm2 LVLd ap4: 6.6 cm LVLd ap2: 6.8 cm EDV(MOD-sp4): 42.0 ml EDV(MOD-sp2): 41.2 ml EDV(sp4-el): 44.4 ml EDV(sp2-el): 43.2 ml LVAs ap4: 9.0 cm2 LVAs ap2: 9.8 cm2 LVLs ap4: 5.3 cm LVLs ap2: 5.5 cm ESV(MOD-sp4): 12.8 ml ESV(MOD-sp2): 14.1 ml ESV(sp4-el): 13.1 ml ESV(sp2-el): 14.8 ml EF(MOD-sp4): 69.6 % EF(MOD-sp2): 65.8 % EF(sp4-el): 70.5 % SV(MOD-sp2): 27.1 ml SV(sp4-el): 31.3 ml Ao sinus diam: 2.[address] Junction: 2.5 cm LA A4 area: 15.1 cm2 LA dimension(2D): 3.7 cm RA A4 area: 7.8 cm2 TAPSE: 2.0 cm Time Measurements MV dec time: 0.16 sec Doppler Measurements & Calculations MV E max manolo: 73.0 cm/sec Lat Peak E' Manolo: 13.5 cm/sec Med Peak E' Manolo: 8.9 cm/sec MV A max manolo: 84.9 cm/sec E/E' lat: 5.4 E/E' med: 8.2 MV E/A: 0.86 MV dec slope: 456.2 cm/sec2 Ao V2 max: 117.8 cm/sec LV V1 max: 99.0 cm/sec Ao max P.5 mmHg LV V1 max P.9 mmHg Ao V2 mean: 82.7 cm/sec LV V1 mean P.0 mmHg Ao mean P.0 mmHg LV V1 mean: 66.2 cm/sec Ao V2 VTI: 25.7 cm LV V1 VTI: 24.0 cm AV (velocity ratio): 0.93 HUNTER(I,D): 2.8 cm2 HUNTER(V,D): 2.6 cm2 SV(LVOT): 73.3 ml PA V2 max: 113.4 cm/sec TR max manolo: 220.6 cm/sec PA max PG (full): 3.2 mmHg TR max P.5 mmHg ECHO/Echo Complete Interpretation Summary The left ventricular ejection fraction is 65 %. Ordering Physician: Dheeraj Nash Referring Physician: Trisha Stacy M.D. Performed By: Juanis Reeves RDCS
--- NOTE | 2024-02-17 17:26 | STRESSREP ---
Stress Test Report Date: 02/09/2026 Procedure: Exercise tolerance test/imaging study Indications: Dyspnea on exertion Consent: Per the patient Procedure: The patient exercised on a Chet protocol for 6 minutes achieving a peak heart rate of 122 bpm (81% predicted maximal heart rate) with a peak blood pressure 184/70 mmHg and a peak MET capacity of 7.0 METs. The baseline ECG demonstrated sinus rhythm. The peak exercise ECG demonstrated no ischemic changes. There were no cardiac dysrhythmias pretest, during exercise, or recovery. The functional capacity was considered average for age. There was no complaint of chest discomfort during exercise or recovery. Mild shortness of breath reported. The examination was discontinued secondary to dyspnea. The patient was injected with 11.0 mCi of technetium 99m Cardiolite and subsequently rest SPECT Cardiolite nuclear imaging was obtained in the horizontal long, vertical long, and short axis views. Post-exercise, the patient was injected with 35.8 mCi of technetium 99m Cardiolite and subsequently stress SPECT Cardiolite nuclear imaging was obtained in the horizontal long, vertical long, and short axis views. A gated Cardiolite study at peak stress was obtained. Rest and stress SPECT Cardiolite nuclear imaging status post realignment, normalization, and attenuation correction, demonstrates the appearance of relative uniform tracer uptake and myocardial perfusion appearing within normal limits. There is end systolic thickening and brightening. The gated Cardiolite study demonstrates myocardial thickening and inward wall motion. The reported LVEF is 92%. Impression: 1. Technically adequate (percent predicted maximal heart rate greater than 81%) exercise tolerance test 2. Peak exercise ECG with no ischemic changes 3. There were no cardiac dysrhythmias pretest, during exercise, or recovery 4. Rest and stress SPECT Cardiolite nuclear imaging demonstrate no significant ischemic burden. 5. The gated Cardiolite study reports an LVEF of 81%. This note was generated with [employer] software. It may contain incorrect words, spelling, and punctuation that were not noted in checking the note before signing.
== END | disposition home or self-care (01) ==
LOC: CVS 06:49
PROVIDERS: PCP Internal Medicine; Referring Provider Internal Medicine Cardiovascular Disease; Visit Provider Internal Medicine Cardiovascular Disease
DX: R06.09 Other forms of dyspnea (principal); I48.0 Paroxysmal atrial fibrillation; I25.10 Atherosclerotic heart disease of native coronary artery without angina pectoris; E78.5 Hyperlipidemia, unspecified; R53.83 Other fatigue
CPT/HCPCS: 78452; 93017; 93306; A9500; A4216; J2785

== ENCOUNTER → 2025-02-15 | Outpatient (CLI) | payer MEDICARE, OTHER, SELFPAY ==
[2025-02-15 10:41] LABS: AST(SGOT) 23 U/L (<=31); Alanine Aminotransfer ALT/SGPT 24 U/L (<=34); Albumin, Serum 4.3 g/dL (3.4-4.8); Alkaline Phosphatase 55 U/L (35-104); Anion Gap 12 (5-15); BUN 22 mg/dL (4-19); BUN/Creat Ratio 24.6 RATIO (10-20); Calcium,Total 9.9 mg/dL (7.6-11.0); Carbon Dioxide 24.5 mmol/L (21.0-32.0); Chloride 102 mmol/L (98-108); Cholesterol 245 mg/dL (<=200); Globulin 3.5 g/dL (2.2-4.2); Glucose 88 mg/dL (70-99); Low Density Lipoprotein Calc. 152 mg/dL; Potassium 5.2 mmol/L (3.3-5.1); Triglycerides 68 mg/dL; Very Low Density Lipoprotein 14 mg/dL (5-40); cholesterol:hdl ratio screen 3.09
== END | disposition home or self-care (01) ==
LOC: LAB 08:37
PROVIDERS: PCP Internal Medicine; Referring Provider Internal Medicine Cardiovascular Disease; Visit Provider Internal Medicine Cardiovascular Disease
DX: I25.10 Atherosclerotic heart disease of native coronary artery without angina pectoris (principal); E78.5 Hyperlipidemia, unspecified
CPT/HCPCS: 36415; 80053; 80061

== ENCOUNTER → 2025-05-15 | Outpatient (CLI) | payer MEDICARE, OTHER, SELFPAY ==
--- NOTE | 2025-05-15 12:47 | ECHOD_ITS ---
Reason For Study Reason For Study: CHECK FOR PLACEMENT OF WATCHMAN DEVICE Procedure This was a 2D Doppler, Color Flow transthoracic echocardiogram. Exam performed in department. Left Ventricle Normal size and thickness. The left ventricular ejection fraction is 65 %. No evidence for diastolic dysfunction. Right Ventricle Normal right ventricle. Atria The left atrium is mildly enlarged. Normal right atrium. Mitral Valve Mild-Moderate (1-2+) mitral valve insufficiency. Tricuspid Valve Trivial tricuspid valve insufficiency. Normal pulmonary artery pressure. Aortic Valve Trisinus/trileaflet aortic valve. Pulmonic Valve The pulmonic valve is not well visualized. Trivial pulmonic valve insufficiency. Great Vessels Normal sized aortic root. Pericardium/Pleural No pericardial effusion. MMode/2D Measurements & Calculations LVIDd: 4.8 cm IVSd: 0.73 cm Ao root diam: 3.6 cm LVIDs: 3.2 cm LVPWd: 0.62 cm RVDd: 3.1 cm FS: 32.8 % LAV(MOD-bp): 48.4 ml LVAd ap4: 22.2 cm2 LVAd ap2: 23.9 cm2 LAV(MOD-bp) Indexed: 26.9 ml/m2 LVLd ap4: 7.3 cm LVLd ap2: 7.1 cm LAV(MOD-sp2): 47.2 ml EDV(MOD-sp4): 55.8 ml EDV(MOD-sp2): 65.7 ml LAV(MOD-sp4): 49.2 ml EDV(sp4-el): 57.7 ml EDV(sp2-el): 68.3 ml LVAs ap4: 11.0 cm2 LVAs ap2: 11.7 cm2 LVLs ap4: 6.1 cm LVLs ap2: 5.9 cm ESV(MOD-sp4): 16.9 ml ESV(MOD-sp2): 19.2 ml ESV(sp4-el): 16.8 ml ESV(sp2-el): 19.7 ml EF(MOD-sp4): 69.7 % EF(MOD-sp2): 70.7 % EF(sp4-el): 70.8 % SV(MOD-sp4): 38.9 ml SV(MOD-sp2): 46.4 ml EDV(MOD-bp): 61.3 ml SI(MOD-sp4): 21.6 ml/m2 SI(MOD-sp2): 25.8 ml/m2 ESV(MOD-bp): 18.2 ml EF(MOD-bp): 70.4 % SV(sp4-el): 40.9 ml LA dimension(2D): 4.3 cm LA A4 area: 18.2 cm2 RA A4 area: 8.0 cm2 TAPSE: 2.4 cm Time Measurements MV dec time: 0.17 sec Doppler Measurements & Calculations MV E max manolo: 88.7 cm/sec Lat Peak E' Manolo: 14.5 cm/sec Med Peak E' Manolo: 9.9 cm/sec MV A max manolo: 64.5 cm/sec E/E' lat: 6.1 E/E' med: 9.0 MV E/A: 1.4 Ao V2 max: 107.4 cm/sec LV V1 max: 82.3 cm/sec MV dec slope: 524.6 cm/sec2 Ao max P.6 mmHg LV V1 max P.7 mmHg Ao V2 mean: 74.2 cm/sec LV V1 mean P.4 mmHg Ao mean P.4 mmHg LV V1 mean: 56.0 cm/sec Ao V2 VTI: 26.3 cm LV V1 VTI: 20.9 cm AV (velocity ratio): 0.80 PA V2 max: 75.2 cm/sec TR max manolo: 258.7 cm/sec TR max P.8 mmHg ECHO/Echo Complete Interpretation Summary The left ventricular ejection fraction is 65 %. No evidence for diastolic dysfunction. The left atrium is mildly enlarged. Mild-Moderate (1-2+) mitral valve insufficiency. Ordering Physician: Dheeraj Nash Referring Physician: Trisha Stacy Performed By: Jaja Tavarez RDCS
== END | disposition home or self-care (01) ==
LOC: CVS 12:47
PROVIDERS: PCP Internal Medicine; Referring Provider Internal Medicine Cardiovascular Disease; Visit Provider Internal Medicine Cardiovascular Disease
DX: I25.10 Atherosclerotic heart disease of native coronary artery without angina pectoris (principal); I48.0 Paroxysmal atrial fibrillation; Z98.890 Other specified postprocedural states; Z95.818 Presence of other cardiac implants and grafts; Z86.79 Personal history of other diseases of the circulatory system
CPT/HCPCS: 93306